=== PATIENT | female | born 1960 | race Caucasian/White ===

== ENCOUNTER 2017-09-23 15:02 | Emergency (ER) | payer MEDICARE ==
[2017-09-23] MEDS: silver sulfADIAZINE 1% CREAM 25GM TUBE. TP (15:50)
== END 2017-09-23 15:56 | disposition home or self-care (01) ==
LOC: ER 15:02
DX: T23.221A Burn of second degree of single right finger (nail) except thumb, initial encounter (principal); I11.0 Hypertensive heart disease with heart failure; I50.9 Heart failure, unspecified; E11.40 Type 2 diabetes mellitus with diabetic neuropathy, unspecified; E78.00 Pure hypercholesterolemia, unspecified; F12.10 Cannabis abuse, uncomplicated; Z88.8 Allergy status to other drugs, medicaments and biological substances; X17.XXXA Contact with hot engines, machinery and tools, initial encounter; Y93.89 Activity, other specified; Y99.8 Other external cause status; Y92.89 Other specified places as the place of occurrence of the external cause
CPT/HCPCS: 16020; 99284-25

== ENCOUNTER 2017-10-10 18:28 | Emergency (ER) | payer MEDICARE ==
[2017-10-10 20:32] LABS: BILIRUBIN,URINE NEGATIVE (NEG); CLARITY,URINE CLEAR; COLOR,URINE YELLOW; GLUCOSE,URINE >=1000 mg/dL (NEG); NITRITE,URINE NEGATIVE (NEG); PH,URINE 5.5; PROTEIN,URINE 30 mg/dL (NEG-TRACE); UROBILINOGEN,URINE 0.2 mg/dL (0.2 mg/dL)
[2017-10-10 20:41] LABS: AMPHETAMINE/METHAMPHETAMINE NEG (NEG); BARBITURATES NEG (NEG); BENZODIAZEPINES NEG (NEG); CANNABINOIDS POS (NEG); COCAINE NEG (NEG); ETHANOL, URINE NEG (NEG); METHADONE NEG (NEG); OPIATES NEG (NEG); PHENCYCLIDINE NEG (NEG)
[2017-10-10 20:44] LABS: ADD MAN DIFF? NO
[2017-10-10] MEDS: IV NORMAL SALINE 1000ML BAG 1,000 ML IV (20:45)
[2017-10-10 20:47] LABS: BASO # 0.1 x10^3/uL (0.0-0.2); BASO % 1 % (0-3); EOS # 0.3 x10^3/uL (0.0-0.7); EOS % 4 % (0-3); HEMATOCRIT 40.8 % (36.0-47.0); HEMOGLOBIN 13.8 g/dL (12.0-15.5); LYMPH % 42 % (24-48); MEAN CORPUSCULAR HEMOGLOBIN 30 pg (25-35); MEAN CORPUSCULAR HGB CONC 34 g/dL (31-37); MEAN CORPUSCULAR VOLUME 89 fL (79-100); MONO # 0.9 x10^3/uL (0.0-1.1); MONO % 9 % (0-9); NEUT # 4.2 x10^3uL (1.8-7.7); NEUT % 44 % (31-73); PLATELET COUNT 266 x10^3/uL (140-400); RED BLOOD COUNT 4.58 x10^6/uL (3.50-5.40); RED CELL DISTRIBUTION WIDTH 14.2 % (11.5-14.5); WHITE BLOOD COUNT 9.5 x10^3/uL (4.0-11.0)
[2017-10-10 20:58] LABS: ANION GAP 12 (6-14); BLOOD UREA NITROGEN 16 mg/dL (7-20); CALCIUM 9.7 mg/dL (8.5-10.1); CARBON DIOXIDE 25 mmol/L (21-32); CHLORIDE 97 mmol/L (98-107); CREATININE 0.9 mg/dL (0.6-1.0); GFR 64.5; GLUCOSE 283 mg/dL (70-99); POTASSIUM 4.1 mmol/L (3.5-5.1); SODIUM 134 mmol/L (136-145)
[2017-10-10 21:03] LABS: TROPONINI < 0.017 ng/mL (0.000-0.055)
[2017-10-10 21:07] LABS: RBC,URINE 0 /HPF (0-2)
[2017-10-10 21:08] LABS: BACTERIA,URINE FEW /HPF (0-FEW); SQUAMOUS EPITHELIAL CELL,UR FEW /LPF; YEAST,URINE PRESENT /HPF
[2017-10-10 21:10] LABS: THYROID STIM HORMONE (TSH) 5.416 uIU/mL (0.358-3.74)
== END 2017-10-10 23:09 | disposition home or self-care (01) ==
LOC: ER 18:28
DX: S40.012A Contusion of left shoulder, initial encounter (principal); I95.1 Orthostatic hypotension; F41.0 Panic disorder [episodic paroxysmal anxiety]; I11.0 Hypertensive heart disease with heart failure; I50.9 Heart failure, unspecified; J44.9 Chronic obstructive pulmonary disease, unspecified; E11.9 Type 2 diabetes mellitus without complications; E78.00 Pure hypercholesterolemia, unspecified; E11.40 Type 2 diabetes mellitus with diabetic neuropathy, unspecified; F12.10 Cannabis abuse, uncomplicated; Z86.19 Personal history of other infectious and parasitic diseases; Z88.8 Allergy status to other drugs, medicaments and biological substances; X58.XXXA Exposure to other specified factors, initial encounter; Y93.89 Activity, other specified; Y92.89 Other specified places as the place of occurrence of the external cause; Y99.8 Other external cause status
CPT/HCPCS: 36415; 71045; 73030; 80048; 80307; 81001; 84443; 84484; 85025; 93005; 96360; 96361; 99285-25; J7030

== ENCOUNTER 2017-11-03 12:19 | Inpatient (IN) | payer OTHER, MEDICARE ==
[2017-11-03] MEDS: 0.9 % SODIUM CHLORIDE 10 ML DISP.SYRIN. IV (12:30)
[2017-11-03] MEDS: ALBUTEROL SULFATE 2.5 MG/3 ML NEBU. CONT NEB (12:40)
[2017-11-03] MEDS: IPRATRPIUM/ALBUTEROL 0.5/2.5MG 3 ML NEBU. NEB ×2 (12:43→19:44)
[2017-11-03 12:53] LABS: BASE EXCESS ABG -3 mmol/L (-3-3); HCO3 ABG 20 mmol/L (21-28); PCO2 ABG 30 mmHg (35-46); PH ABG 7.45 (7.35-7.45); PO2 ABG 70 mmHg (75-108); SAT O2 ABG 94 % (92-99)
[2017-11-03 12:57] LABS: ADD MAN DIFF? NO
[2017-11-03 13:01] LABS: BASO # 0.1 x10^3/uL (0.0-0.2); BASO % 1 % (0-3); EOS # 0.2 x10^3/uL (0.0-0.7); EOS % 2 % (0-3); HEMATOCRIT 35.5 % (36.0-47.0); HEMOGLOBIN 12.1 g/dL (12.0-15.5); LYMPH # 2.7 x10^3/uL (1.0-4.8); LYMPH % 29 % (24-48); MEAN CORPUSCULAR HEMOGLOBIN 31 pg (25-35); MEAN CORPUSCULAR HGB CONC 34 g/dL (31-37); MEAN CORPUSCULAR VOLUME 90 fL (79-100); MONO # 0.6 x10^3/uL (0.0-1.1); MONO % 7 % (0-9); NEUT # 5.7 x10^3uL (1.8-7.7); NEUT % 61 % (31-73); PLATELET COUNT 251 x10^3/uL (140-400); RED BLOOD COUNT 3.95 x10^6/uL (3.50-5.40); RED CELL DISTRIBUTION WIDTH 15.5 % (11.5-14.5); WHITE BLOOD COUNT 9.2 x10^3/uL (4.0-11.0)
[2017-11-03] MEDS: methylPREDNISolone SOD SUCC PF 125 MG/2 ML VIAL. IV (13:05)
[2017-11-03] MEDS: ASPIRIN CHEWABLE 81 MG TABLET. PO (13:06)
[2017-11-03] MEDS: MORPHINE SULFATE 4 MG/ML DISP.SYRIN. IV/SQ ×2 (13:06→21:14)
[2017-11-03] MEDS: IV NORMAL SALINE 1000ML BAG 1,000 ML IV (13:12)
[2017-11-03 13:25] LABS: ANION GAP 14 (6-14); BLOOD UREA NITROGEN 15 mg/dL (7-20); CALCIUM 9.6 mg/dL (8.5-10.1); CARBON DIOXIDE 23 mmol/L (21-32); CHLORIDE 99 mmol/L (98-107); CREATININE 0.9 mg/dL (0.6-1.0); GFR 64.5; GLUCOSE 291 mg/dL (70-99); POTASSIUM 4.1 mmol/L (3.5-5.1); SODIUM 136 mmol/L (136-145)
[2017-11-03 13:31] LABS: ALBUMIN 3.7 g/dL (3.4-5.0); ALK PHOS 90 U/L (46-116); ALT (SGPT) 50 U/L (14-59); AST (SGOT) 26 U/L (15-37); DIRECT BILIRUBIN 0.2 mg/dL (0.0-0.2); LIPASE 112 U/L (73-393); MAGNESIUM 1.5 mg/dL (1.8-2.4); TOTAL PROTEIN 7.6 g/dL (6.4-8.2)
[2017-11-03 13:38] LABS: NT-PRO BNP 2161 pg/mL (0-124); THYROID STIM HORMONE (TSH) 2.019 uIU/mL (0.358-3.74)
[2017-11-03 13:38] LABS: CKMB MASS 2.9 ng/mL (0.0-3.6); CREATINE KINASE 56 U/L (26-192)
[2017-11-03 13:39] LABS: TROPONINI < 0.017 ng/mL (0.000-0.055)
[2017-11-03 13:44] LABS: INFLUENZA A PATIENT NEGATIVE (NEGATIVE); INFLUENZA B PATIENT NEGATIVE (NEGATIVE); OBC FLU VALID
[2017-11-03 14:07] LABS: LACTIC ACID 1.7 mmol/L (0.4-2.0)
[2017-11-03] MEDS ORDERED: NITROGLYCERIN SUBLINGUAL 0.4 MG BOTTLE OF 25. SL (14:15)
[2017-11-03] MEDS ORDERED: ONDANSETRON PF 4 MG/2 ML VIAL. IV (14:15)
[2017-11-03] MEDS ORDERED: ACETAMINOPHEN 325 MG TABLET. PO (14:15)
[2017-11-03] MEDS: FUROSEMIDE 40 MG/4 ML VIAL. IVP (15:15)
[2017-11-03] MEDS: CIPROFLOXACIN 400MG PREMIX 200 ML IV ×2 (15:30→21:58)
[2017-11-03] MEDS ORDERED: IPRATRPIUM/ALBUTEROL 0.5/2.5MG 3 ML NEBU. NEB (16:00)
[2017-11-03 16:52] LABS: POC GLUCOSE 304 mg/dL (70-99)
[2017-11-03] MEDS: glyBURIDE 5 MG TABLET PO (17:36)
[2017-11-03] MEDS: GABAPENTIN 300 MG CAPSULE. PO (17:58)
[2017-11-03] MEDS: carBAMazepine 200 MG TABLET PO (17:59)
[2017-11-03] MEDS: METOPROLOL TART IMMED RELEASE 50 MG TABLET. PO (18:00)
[2017-11-03] MEDS: NORTRIPTYLINE 25 MG CAPSULE PO (18:12)
[2017-11-03 19:33] LABS: POC GLUCOSE 462 mg/dL (70-99)
[2017-11-03 20:22] LABS: POC GLUCOSE 423 mg/dL (70-99)
[2017-11-03 20:49] LABS: TROPONINI < 0.017 ng/mL (0.000-0.055)
[2017-11-03] MEDS ORDERED: GABAPENTIN 300 MG CAPSULE. PO (21:00)
[2017-11-03] MEDS ORDERED: NORTRIPTYLINE 25 MG CAPSULE PO (21:00)
[2017-11-03] MEDS ORDERED: carBAMazepine 200 MG TABLET PO (21:00)
[2017-11-03] MEDS ORDERED: METOPROLOL TART IMMED RELEASE 50 MG TABLET. PO (21:00)
[2017-11-03] MEDS: INSULIN ASPART 300 UNITS/3 ML INSULN.PEN SQ (21:10)
[2017-11-03] MEDS: ALPRAZolam 0.5 MG TABLET PO (21:13)
[2017-11-04 02:44] LABS: TROPONINI < 0.017 ng/mL (0.000-0.055)
[2017-11-04] MEDS ORDERED: DEXTROSE 50% 25 GM / 50ML DISP.SYRIN. IV (07:45)
[2017-11-04 07:56] LABS: POC GLUCOSE 303 mg/dL (70-99)
[2017-11-04] MEDS: IPRATRPIUM/ALBUTEROL 0.5/2.5MG 3 ML NEBU. NEB ×4 (08:19→20:31)
[2017-11-04] MEDS: GABAPENTIN 300 MG CAPSULE. PO ×2 (08:25→17:45)
[2017-11-04] MEDS: MULTIVITAMIN with MINERAL TABLET. PO (08:26)
[2017-11-04] MEDS: carBAMazepine 200 MG TABLET PO ×2 (08:26→17:46)
[2017-11-04] MEDS: METOPROLOL TART IMMED RELEASE 50 MG TABLET. PO ×2 (08:27→17:47)
[2017-11-04] MEDS: glyBURIDE 5 MG TABLET PO ×2 (08:27→17:45)
[2017-11-04] MEDS: CIPROFLOXACIN 400MG PREMIX 200 ML IV ×2 (08:29→21:41)
[2017-11-04] MEDS: INSULIN ASPART 300 UNITS/3 ML INSULN.PEN SQ ×3 (08:41→17:00)
[2017-11-04] MEDS ORDERED: NON FORMULARY ITEM (Tiotropium Bromide (Spiriva) 1 CAP) IH (09:00)
[2017-11-04 11:47] LABS: POC GLUCOSE 312 mg/dL (70-99)
[2017-11-04] MEDS: fentaNYL PF VIAL 100 MCG/2 ML VIAL IV (13:23)
[2017-11-04] MEDS: ALBUTEROL SULFATE 2.5 MG/3 ML NEBU. NEB (13:48)
[2017-11-04 17:07] LABS: POC GLUCOSE 116 mg/dL (70-99)
[2017-11-04] MEDS: NORTRIPTYLINE 25 MG CAPSULE PO (17:46)
[2017-11-04] MEDS: oxyCODONE/APAP 5/325 1 TAB TABLET PO ×2 (17:47→21:40)
[2017-11-04] MEDS: methylPREDNISolone SOD SUCC PF 125 MG/2 ML VIAL. IV ×2 (17:48→21:41)
[2017-11-04] MEDS: LACTOBACILLUS RHAMNOSUS GG 1 CAPSULE. PO (21:00)
[2017-11-04] MEDS: ALPRAZolam 0.5 MG TABLET PO (21:40)
[2017-11-04 22:34] LABS: POC GLUCOSE 208 mg/dL (70-99)
[2017-11-05 04:32] LABS: BASO % 0 % (0-3); EOS % 0 % (0-3); HEMATOCRIT 33.5 % (36.0-47.0); HEMOGLOBIN 11.3 g/dL (12.0-15.5); LYMPH # 0.6 x10^3/uL (1.0-4.8); LYMPH % 7 % (24-48); MEAN CORPUSCULAR HEMOGLOBIN 31 pg (25-35); MEAN CORPUSCULAR HGB CONC 34 g/dL (31-37); MEAN CORPUSCULAR VOLUME 91 fL (79-100); MONO # 0.1 x10^3/uL (0.0-1.1); MONO % 2 % (0-9); NEUT # 7.9 x10^3uL (1.8-7.7); NEUT % 91 % (31-73); PLATELET COUNT 236 x10^3/uL (140-400); RED BLOOD COUNT 3.69 x10^6/uL (3.50-5.40); RED CELL DISTRIBUTION WIDTH 16.2 % (11.5-14.5); WHITE BLOOD COUNT 8.7 x10^3/uL (4.0-11.0)
[2017-11-05 04:33] LABS: ADD MAN DIFF? YES
[2017-11-05 04:55] LABS: ANION GAP 16 (6-14); BLOOD UREA NITROGEN 27 mg/dL (7-20); CALCIUM 9.6 mg/dL (8.5-10.1); CARBON DIOXIDE 22 mmol/L (21-32); CHLORIDE 96 mmol/L (98-107); CREATININE 1.2 mg/dL (0.6-1.0); GFR 46.3; GLUCOSE 397 mg/dL (70-99); POTASSIUM 4.3 mmol/L (3.5-5.1); SODIUM 134 mmol/L (136-145)
[2017-11-05] MEDS: IPRATRPIUM/ALBUTEROL 0.5/2.5MG 3 ML NEBU. NEB ×5 (07:36→21:20)
[2017-11-05 08:06] LABS: POC GLUCOSE 312 mg/dL (70-99)
[2017-11-05] MEDS: GABAPENTIN 300 MG CAPSULE. PO ×2 (09:09→17:49)
[2017-11-05] MEDS: METOPROLOL TART IMMED RELEASE 50 MG TABLET. PO ×2 (09:10→17:49)
[2017-11-05] MEDS: carBAMazepine 200 MG TABLET PO ×2 (09:10→17:54)
[2017-11-05] MEDS: glyBURIDE 5 MG TABLET PO ×2 (09:10→17:48)
[2017-11-05] MEDS: LACTOBACILLUS RHAMNOSUS GG 1 CAPSULE. PO ×2 (09:10→21:27)
[2017-11-05] MEDS: MULTIVITAMIN with MINERAL TABLET. PO (09:10)
[2017-11-05] MEDS: ALPRAZolam 0.5 MG TABLET PO ×2 (09:11→21:27)
[2017-11-05] MEDS: methylPREDNISolone SOD SUCC PF 125 MG/2 ML VIAL. IV ×4 (09:11→21:27)
[2017-11-05] MEDS: INSULIN ASPART 300 UNITS/3 ML INSULN.PEN SQ ×5 (09:30→21:36)
[2017-11-05 09:34] LABS: % BANDS 1 % (0-9); % LYMPHS 8 % (24-48); % MONOS 3 % (0-10); % SEGS 88 % (35-66); PLT ESTIMATE ADEQUATE (ADEQUATE); POLYCHROMASIA PRESENT
[2017-11-05] MEDS: CIPROFLOXACIN 400MG PREMIX 200 ML IV ×2 (10:45→21:27)
[2017-11-05 17:09] LABS: POC GLUCOSE 351 mg/dL (70-99)
[2017-11-05 17:42] LABS: POC GLUCOSE 412 mg/dL (70-99)
[2017-11-05] MEDS: NORTRIPTYLINE 25 MG CAPSULE PO (17:48)
[2017-11-05] MEDS ORDERED: DEXTROSE 50% 25 GM / 50ML DISP.SYRIN. IV (18:15)
[2017-11-05] MEDS: FUROSEMIDE 40 MG/4 ML VIAL. IVP (19:21)
[2017-11-05 21:11] LABS: POC GLUCOSE 375 mg/dL (70-99)
[2017-11-06 04:36] LABS: ADD MAN DIFF? NO
[2017-11-06 04:43] LABS: BASO % 0 % (0-3); EOS % 0 % (0-3); HEMATOCRIT 34.7 % (36.0-47.0); LYMPH # 1.3 x10^3/uL (1.0-4.8); LYMPH % 14 % (24-48); MEAN CORPUSCULAR HEMOGLOBIN 31 pg (25-35); MEAN CORPUSCULAR HGB CONC 35 g/dL (31-37); MEAN CORPUSCULAR VOLUME 90 fL (79-100); MONO # 0.7 x10^3/uL (0.0-1.1); MONO % 7 % (0-9); NEUT # 7.4 x10^3uL (1.8-7.7); NEUT % 79 % (31-73); PLATELET COUNT 263 x10^3/uL (140-400); RED BLOOD COUNT 3.86 x10^6/uL (3.50-5.40); RED CELL DISTRIBUTION WIDTH 15.9 % (11.5-14.5); WHITE BLOOD COUNT 9.4 x10^3/uL (4.0-11.0)
[2017-11-06 05:03] LABS: ANION GAP 13 (6-14); BLOOD UREA NITROGEN 28 mg/dL (7-20); CALCIUM 9.5 mg/dL (8.5-10.1); CARBON DIOXIDE 25 mmol/L (21-32); CHLORIDE 97 mmol/L (98-107); CREATININE 1.1 mg/dL (0.6-1.0); GFR 51.2; GLUCOSE 326 mg/dL (70-99); SODIUM 135 mmol/L (136-145)
[2017-11-06] MEDS ORDERED: INSULIN ASPART 300 UNITS/3 ML INSULN.PEN SQ (07:30)
[2017-11-06] MEDS: glyBURIDE 5 MG TABLET PO ×2 (08:00→17:13)
[2017-11-06] MEDS: IPRATRPIUM/ALBUTEROL 0.5/2.5MG 3 ML NEBU. NEB ×4 (08:03→19:59)
[2017-11-06] MEDS: IV 1/2 NORMAL SALINE 1,000 ML IV (08:24)
[2017-11-06] MEDS: methylPREDNISolone SOD SUCC PF 125 MG/2 ML VIAL. IV ×4 (08:25→21:31)
[2017-11-06] MEDS: MULTIVITAMIN with MINERAL TABLET. PO (08:25)
[2017-11-06] MEDS: CIPROFLOXACIN 400MG PREMIX 200 ML IV ×2 (08:25→21:30)
[2017-11-06] MEDS: GABAPENTIN 300 MG CAPSULE. PO ×2 (08:26→17:11)
[2017-11-06] MEDS: carBAMazepine 200 MG TABLET PO ×2 (08:26→17:12)
[2017-11-06] MEDS: LACTOBACILLUS RHAMNOSUS GG 1 CAPSULE. PO ×2 (08:26→21:31)
[2017-11-06] MEDS: METOPROLOL TART IMMED RELEASE 50 MG TABLET. PO ×2 (08:26→17:11)
[2017-11-06 08:34] LABS: POC GLUCOSE 229 mg/dL (70-99)
[2017-11-06] MEDS: INSULIN ASPART 300 UNITS/3 ML INSULN.PEN SQ ×3 (08:41→17:30)
[2017-11-06 11:25] LABS: POC GLUCOSE 335 mg/dL (70-99)
[2017-11-06] MEDS ORDERED: LIDOCAINE 2% 20 ML VIAL. (11:48)
[2017-11-06] MEDS ORDERED: IOHEXOL 300 MG/ML 100ML VIAL. ×2 (11:48→12:45)
[2017-11-06] MEDS ORDERED: MIDAZOLAM HCL/PF 2 MG/2 ML VIAL. (11:52)
[2017-11-06] MEDS ORDERED: fentaNYL PF VIAL 100 MCG/2 ML VIAL (11:52)
[2017-11-06] MEDS ORDERED: FUROSEMIDE 40 MG/4 ML VIAL. IVP (12:30)
[2017-11-06] MEDS ORDERED: CONTRAST GIVEN MC (12:45)
[2017-11-06] MEDS: amLODIPine BESYLATE 10 MG TABLET PO (13:00)
[2017-11-06] MEDS: IOHEXOL 300 MG/ML 100ML VIAL. IART (13:12)
[2017-11-06] MEDS: LIDOCAINE 2% 20 ML VIAL. IJ (13:13)
[2017-11-06] MEDS: fentaNYL PF VIAL 100 MCG/2 ML VIAL IV (13:13)
[2017-11-06] MEDS: MIDAZOLAM HCL/PF 2 MG/2 ML VIAL. IV (13:14)
[2017-11-06 13:35] LABS: POC GLUCOSE 296 mg/dL (70-99)
[2017-11-06] MEDS ORDERED: fentaNYL PF VIAL 100 MCG/2 ML VIAL IV (14:30)
[2017-11-06] MEDS ORDERED: NITROGLYCERIN SUBLINGUAL 0.4 MG BOTTLE OF 25. SL (14:30)
[2017-11-06] MEDS ORDERED: HYDROcodone/APAP 5/325MG 1 TAB TABLET PO (14:30)
[2017-11-06] MEDS ORDERED: 0.9 % SODIUM CHLORIDE 10 ML DISP.SYRIN. IV (14:30)
[2017-11-06] MEDS: LABETALOL 20 MG/4 ML DISP.SYRIN. IVP (14:51)
[2017-11-06 16:57] LABS: POC GLUCOSE 279 mg/dL (70-99)
[2017-11-06] MEDS: NORTRIPTYLINE 25 MG CAPSULE PO (17:11)
[2017-11-06] MEDS: LOSARTAN POTASSIUM 50 MG TABLET. PO (17:12)
[2017-11-06] MEDS: ONDANSETRON PF 4 MG/2 ML VIAL. IV (19:40)
[2017-11-06] MEDS: FUROSEMIDE 40 MG/4 ML VIAL. IVP (19:45)
[2017-11-06] MEDS ORDERED: METOPROLOL TART IMMED RELEASE 25 MG TABLET. PO (21:00)
[2017-11-06 21:08] LABS: POC GLUCOSE 389 mg/dL (70-99)
[2017-11-06] MEDS: SIMVASTATIN 10 MG TABLET PO (21:31)
[2017-11-07] MEDS: INSULIN ASPART 300 UNITS/3 ML INSULN.PEN SQ ×4 (00:43→18:06)
[2017-11-07] MEDS: LABETALOL 20 MG/4 ML DISP.SYRIN. IVP (03:41)
[2017-11-07 05:18] LABS: ADD MAN DIFF? NO
[2017-11-07 05:43] LABS: BASO % 0 % (0-3); EOS % 0 % (0-3); HEMATOCRIT 33.1 % (36.0-47.0); HEMOGLOBIN 11.3 g/dL (12.0-15.5); LYMPH # 1.7 x10^3/uL (1.0-4.8); LYMPH % 18 % (24-48); MEAN CORPUSCULAR HEMOGLOBIN 31 pg (25-35); MEAN CORPUSCULAR HGB CONC 34 g/dL (31-37); MEAN CORPUSCULAR VOLUME 90 fL (79-100); MONO # 0.7 x10^3/uL (0.0-1.1); MONO % 8 % (0-9); NEUT # 6.8 x10^3uL (1.8-7.7); NEUT % 74 % (31-73); PLATELET COUNT 229 x10^3/uL (140-400); RED BLOOD COUNT 3.68 x10^6/uL (3.50-5.40); RED CELL DISTRIBUTION WIDTH 15.6 % (11.5-14.5); WHITE BLOOD COUNT 9.2 x10^3/uL (4.0-11.0)
[2017-11-07 06:12] LABS: ANION GAP 8 (6-14); BLOOD UREA NITROGEN 27 mg/dL (7-20); CALCIUM 8.4 mg/dL (8.5-10.1); CARBON DIOXIDE 30 mmol/L (21-32); CHLORIDE 97 mmol/L (98-107); CREATININE 0.9 mg/dL (0.6-1.0); GFR 64.5; GLUCOSE 305 mg/dL (70-99); POTASSIUM 3.5 mmol/L (3.5-5.1); SODIUM 135 mmol/L (136-145)
[2017-11-07] MEDS: carBAMazepine 200 MG TABLET PO ×2 (08:00→17:00)
[2017-11-07 08:15] LABS: POC GLUCOSE 234 mg/dL (70-99)
[2017-11-07] MEDS: IPRATRPIUM/ALBUTEROL 0.5/2.5MG 3 ML NEBU. NEB ×3 (08:22→15:33)
[2017-11-07] MEDS: methylPREDNISolone SOD SUCC PF 125 MG/2 ML VIAL. IV ×3 (09:00→17:00)
[2017-11-07] MEDS: CIPROFLOXACIN 400MG PREMIX 200 ML IV (09:00)
[2017-11-07] MEDS: LACTOBACILLUS RHAMNOSUS GG 1 CAPSULE. PO (09:33)
[2017-11-07] MEDS: glyBURIDE 5 MG TABLET PO ×2 (09:33→18:01)
[2017-11-07] MEDS: METOPROLOL TART IMMED RELEASE 50 MG TABLET. PO ×2 (09:33→18:00)
[2017-11-07] MEDS: LOSARTAN POTASSIUM 50 MG TABLET. PO (09:34)
[2017-11-07] MEDS: amLODIPine BESYLATE 10 MG TABLET PO (09:34)
[2017-11-07] MEDS: MULTIVITAMIN with MINERAL TABLET. PO (09:35)
[2017-11-07] MEDS: GABAPENTIN 300 MG CAPSULE. PO ×2 (09:37→18:00)
[2017-11-07 14:37] LABS: POC GLUCOSE 264 mg/dL (70-99)
[2017-11-07] MEDS: PNEUMOC CONJ VACC 23-VALENT 0.5 ML VIAL. VAX IM (15:07)
[2017-11-07 17:30] LABS: POC GLUCOSE 254 mg/dL (70-99)
[2017-11-07] MEDS: NORTRIPTYLINE 25 MG CAPSULE PO (18:01)
== END 2017-11-07 19:20 | disposition home health service (06) | DRG 286 ==
LOC: 2 SOUTH 11-07 16:20 → ER 12:19 → 6 SOUTH 14:20
PROC: 4A023N8 Measurement of Cardiac Sampling and Pressure, Bilateral, Percutaneous Approach (ICD-10-PCS; principal; 2017-11-06)
PROC: B2111ZZ Fluoroscopy of Multiple Coronary Arteries using Low Osmolar Contrast (ICD-10-PCS; 2017-11-06)
PROC: B2151ZZ Fluoroscopy of Left Heart using Low Osmolar Contrast (ICD-10-PCS; 2017-11-06)
DX: I25.10 Atherosclerotic heart disease of native coronary artery without angina pectoris (principal); J96.21 Acute and chronic respiratory failure with hypoxia; E11.42 Type 2 diabetes mellitus with diabetic polyneuropathy; I11.0 Hypertensive heart disease with heart failure; I27.20 Pulmonary hypertension, unspecified; I50.9 Heart failure, unspecified; J44.9 Chronic obstructive pulmonary disease, unspecified; E78.00 Pure hypercholesterolemia, unspecified; F41.0 Panic disorder [episodic paroxysmal anxiety]; F17.210 Nicotine dependence, cigarettes, uncomplicated; E78.5 Hyperlipidemia, unspecified; K21.9 Gastro-esophageal reflux disease without esophagitis; I34.0 Nonrheumatic mitral (valve) insufficiency; F32.9 Major depressive disorder, single episode, unspecified; M43.00 Spondylolysis, site unspecified; Z87.81 Personal history of (healed) traumatic fracture; Z88.8 Allergy status to other drugs, medicaments and biological substances; Z82.49 Family history of ischemic heart disease and other diseases of the circulatory system
CPT/HCPCS: 36415; 36600; 71045; 80048; 80076; 82553; 82805; 82962; 83605; 83690; 83735; 83880; 84443; 84484; 85007; 85025; 87040; 87804; 87804-59; 90732; 93005; 93306; 93460; 94640; 94760; 96361; 96365; 96375; 97161-GP; 97165-GO; 99152; 99153; 99291-25; C1769; C1771; C1773; C1892; G0269; J0744; J1644; J1815; J1940; J2060; J2250; J2270; J2405; J2930; J3010; J3490; J7030; J7613; J7620; Q9967

== ENCOUNTER 2017-11-13 00:03 | Emergency (ER) | payer OTHER, MEDICARE ==
[2017-11-13 01:01] LABS: ADD MAN DIFF? NO
[2017-11-13 01:04] LABS: BASO # 0.1 x10^3/uL (0.0-0.2); BASO % 1 % (0-3); EOS # 0.3 x10^3/uL (0.0-0.7); EOS % 3 % (0-3); HEMATOCRIT 32.6 % (36.0-47.0); HEMOGLOBIN 10.9 g/dL (12.0-15.5); LYMPH # 2.8 x10^3/uL (1.0-4.8); LYMPH % 22 % (24-48); MEAN CORPUSCULAR HEMOGLOBIN 30 pg (25-35); MEAN CORPUSCULAR HGB CONC 33 g/dL (31-37); MEAN CORPUSCULAR VOLUME 91 fL (79-100); MONO % 8 % (0-9); NEUT # 8.5 x10^3uL (1.8-7.7); NEUT % 67 % (31-73); PLATELET COUNT 289 x10^3/uL (140-400); RED CELL DISTRIBUTION WIDTH 15.6 % (11.5-14.5); WHITE BLOOD COUNT 12.7 x10^3/uL (4.0-11.0)
[2017-11-13] MEDS: BISACODYL 5 MG TABLET.DR. PO (01:06)
[2017-11-13] MEDS: MAGNESIUM CITRATE 296 ML SOLUTION. PO (01:06)
[2017-11-13] MEDS: BISACODYL 10 MG SUPP.RECT. PR (01:06)
[2017-11-13] MEDS: ONDANSETRON PF 4 MG/2 ML VIAL. IV (01:06)
[2017-11-13 01:21] LABS: ANION GAP 11 (6-14); BLOOD UREA NITROGEN 19 mg/dL (7-20); BUN/CREATININE RATIO 19 (6-20); CALCIUM 8.8 mg/dL (8.5-10.1); CARBON DIOXIDE 26 mmol/L (21-32); CHLORIDE 97 mmol/L (98-107); GFR 57.1; GLUCOSE 214 mg/dL (70-99); POTASSIUM 3.8 mmol/L (3.5-5.1); SODIUM 134 mmol/L (136-145)
[2017-11-13 01:27] LABS: ALBUMIN 2.7 g/dL (3.4-5.0); ALBUMIN/GLOBULIN RATIO 0.7 (1.0-1.7); ALK PHOS 118 U/L (46-116); ALT (SGPT) 49 U/L (14-59); AST (SGOT) 30 U/L (15-37); LIPASE 127 U/L (73-393); TOTAL BILIRUBIN 0.3 mg/dL (0.2-1.0); TOTAL PROTEIN 6.8 g/dL (6.4-8.2)
[2017-11-13] MEDS: IPRATRPIUM/ALBUTEROL 0.5/2.5MG 3 ML NEBU. NEB (01:41)
== END 2017-11-13 02:19 | disposition home or self-care (01) ==
LOC: ER 00:03
DX: O26.892 Other specified pregnancy related conditions, second trimester (principal); K59.00 Constipation, unspecified; I11.9 Hypertensive heart disease without heart failure; E11.40 Type 2 diabetes mellitus with diabetic neuropathy, unspecified; J44.9 Chronic obstructive pulmonary disease, unspecified; Z3A.20 20 weeks gestation of pregnancy
CPT/HCPCS: 36415; 74176; 80053; 83690; 85025; 94640; 96374; 99285-25; J2405; J7620

== ENCOUNTER 2018-03-30 09:45 | Emergency (ER) | payer OTHER | END 2018-03-30 10:48 | disposition home or self-care (01) | LOC: ER 10:48 | DX: T81.31XA Disruption of external operation (surgical) wound, not elsewhere classified, initial encounter (principal); J44.9 Chronic obstructive pulmonary disease, unspecified; I10 Essential (primary) hypertension; E11.9 Type 2 diabetes mellitus without complications; E11.40 Type 2 diabetes mellitus with diabetic neuropathy, unspecified; Z88.8 Allergy status to other drugs, medicaments and biological substances | CPT/HCPCS: 12020; 99283 ==

== ENCOUNTER 2018-04-25 18:13 | Emergency (ER) | payer OTHER ==
[2018-04-25] MEDS: IBUPROFEN 600 MG TABLET. PO ×2 (19:16)
== END 2018-04-25 19:31 | disposition home or self-care (01) ==
LOC: ER 18:13
DX: S46.912A Strain of unspecified muscle, fascia and tendon at shoulder and upper arm level, left arm, initial encounter (principal); S50.11XA Contusion of right forearm, initial encounter (principal); S80.212A Abrasion, left knee, initial encounter; S80.211A Abrasion, right knee, initial encounter; E11.40 Type 2 diabetes mellitus with diabetic neuropathy, unspecified; J44.9 Chronic obstructive pulmonary disease, unspecified; I10 Essential (primary) hypertension; I25.10 Atherosclerotic heart disease of native coronary artery without angina pectoris; Z95.1 Presence of aortocoronary bypass graft; Z88.8 Allergy status to other drugs, medicaments and biological substances; W01.0XXA Fall on same level from slipping, tripping and stumbling without subsequent striking against object, initial encounter; Y93.01 Activity, walking, marching and hiking; Y92.481 Parking lot as the place of occurrence of the external cause; Y99.8 Other external cause status
CPT/HCPCS: 99283

== ENCOUNTER 2018-06-20 17:47 | Inpatient (IN) | payer OTHER ==
[~2018-06-20] VITALS: Ht 170.2 cm; Wt 83.5 kg
[~2018-06-20 17:47] MED LIST: ALPR0.5T6 PO; AMLO10TA6 PO; AMOX1TAB61 PO; ANTI DEPRESSION; BISA-42 PO; BISA10SU13 RC; Biotin PO; CARB200T4 PO; CRESTOR20 MG PO; FLUC200T PO; FURO-68 PO; FURO40TA4 PO; GABA-586 PO; GEMF600T PO; GLYB5TAB3 PO; HYDR25TA9 PO; LISI-338 PO; LISI1TAB7 PO; LISI20TA PO; LOSA50TA2 PO; MAGN296S9 PO; METF10007 PO; METO100T7 PO; MULT-208 PO; NORT75CA PO; OMEG300C PO; ORPH100T PO; POTA10TA17 PO; POTA20TA82 PO; PREG25CA PO; SIMV10TA3 PO; SULF1TAB24 PO; TIOT18CA IH; TRAM-48 PO; TRAM50TA PO
[2018-06-20] MEDS ORDERED: IV NORMAL SALINE 500ML BAG 500 ML IV ONE (18:15)
[2018-06-20] MEDS ORDERED: ACETAMINOPHEN 325 MG TABLET. PO ONE (18:15)
[2018-06-20] MEDS ORDERED: IV NORMAL SALINE 1000ML BAG 1,000 ML IV ONE ×3 (18:15→23:30)
[2018-06-20 18:31] LABS: BASO % 0 % (0-3); EOS # 0.1 x10^3/uL (0.0-0.7); EOS % 1 % (0-3); HEMOGLOBIN 13.6 g/dL (12.0-15.5); LYMPH # 1.4 x10^3/uL (1.0-4.8); LYMPH % 12 % (24-48); MEAN CORPUSCULAR HEMOGLOBIN 27 pg (25-35); MEAN CORPUSCULAR HGB CONC 33 g/dL (31-37); MEAN CORPUSCULAR VOLUME 82 fL (79-100); MONO # 0.8 x10^3/uL (0.0-1.1); MONO % 7 % (0-9); NEUT # 8.8 x10^3uL (1.8-7.7); NEUT % 79 % (31-73); PLATELET COUNT 222 x10^3/uL (140-400); RED CELL DISTRIBUTION WIDTH 17.5 % (11.5-14.5); WHITE BLOOD COUNT 11.1 x10^3/uL (4.0-11.0)
[2018-06-20 18:40] LABS: PROTHROMBIN TIME PATIENT 14.3 SEC (11.7-14.0)
--- NOTE | 2018-06-20 18:41 | PHYS DOC ---
Past Medical History Past Medical History: Anxiety, CAD, COPD, Depression, Diabetes-Type II, Hypertension, Hepatitis, UTI Additional Past Medical Histor: neuropathy cellulitis, hep c, PANIC ATTACKS Past Surgical History: Coronary Bypass Surgery Alcohol Use: Rarely Drug Use: None Adult General Chief Complaint Chief Complaint: WEAKNESS/GENERALIZED HPI HPI Patient is a 57 year old female who presents from home via EMS with the chief complaint of fall. Patient is confused, poor historian, and does not answer questions consistently when asked repeatedly. Patient notes she fell last night and is unsure why she fell but notes that she was on the ground for approximately 4 hours before her son who lives with her was able to help her up. On arrival patient was discovered to have a temperature of 102.7F and was tachycardic at 103 at rest. SIRS positive at this point and sepsis workup was started. While interviewing the patient it was noted that she has a productive cough. Patient is unable to verbalize, how long she has been coughing for. Patient also endorses dysuria and increased urinary frequency/urgency. It is also seen that the patient has a generalized blanching maculopapular nonpainful erythematous rash on her extremities, torso, neck, and buttock. Review of Systems Review of Systems Review systems is limited due to patient's altered mental status Constitutional: Notes fevers and chills [] Eyes: Denies change in visual acuity, redness, or eye pain [] HENT: Denies nasal congestion or sore throat [] Respiratory: notes cough and shortness of breath [] Cardiovascular: Denies chest pain or palpitations [] GI: Notes abdominal pain. Denies nausea, vomiting, bloody stools or diarrhea [] : Notes dysuria and increased urgency/frequency [] Musculoskeletal: Denies back pain or joint pain [] Integument: Notes rash and multiple abrasions [] Neurologic: Denies headache, focal weakness or sensory changes [] Complete systems were reviewed and found to be within normal limits, except as documented in this note. Family History Family History Limited due to patient's altered mental status Current Medications Current Medications Current Medications Medications (Trade) Dose Ordered Sig/Fariha Start Time Stop Time Status Last Admin Dose Admin Acetaminophen (Tylenol) 650 mg 1X ONCE 06/20/18 18:15 06/20/18 18:20 DC 06/20/18 18:47 650 MG Lorazepam (Ativan) 0.5 mg 1X ONCE 06/20/18 18:45 06/20/18 18:46 DC 06/20/18 18:47 0.5 MG Piperacillin Sod/ Tazobactam Sod 4.5 gm/Sodium Chloride 100 ml @ 200 mls/hr 1X ONCE 06/20/18 19:15 06/20/18 19:44 DC 06/20/18 20:15 200 MLS/HR Sodium Chloride 500 ml @ 500 mls/hr 1X ONCE 06/20/18 18:15 06/20/18 19:14 DC 06/20/18 18:49 500 MLS/HR Allergies Allergies Allergies Coded Allergies Type Severity Reaction Last Updated Verified pregabalin Adverse Reaction Intermediate Hives 02/18/15 Yes Physical Exam Physical Exam Constitutional: Well developed, appears toxic [] HENT: Normocephalic, atraumatic, oropharynx moist, no oral exudates, nose normal. [] Eyes: PERRL, EOMI, conjunctiva normal, no discharge. [] Neck: Normal range of motion, no tenderness, supple, no meningismus. [] Cardiovascular:Heart rate regular rhythm, no murmur [] Lungs & Thorax: Crackles heard in the right base. Bilateral breath sounds decreased possibly due to patients poor effort due to AMS. Healed surgical scar over sternum.[] Abdomen: Soft, nondistended, tenderness to palpation in the epigastric and suprapubic regions. [] Skin: Hot to touch, dry. Generalized maculopapular rash most predominant on extremities, abdomen, back, neck, and buttock. Rash is nonpainful, blanchable, non-petechial. Multiple 1 cm abrasions noted on bilateral knees right lateral malleolus. Healing 3 cm laceration noted on left medial calf. [] Back: No tenderness, no CVA tenderness. [] Extremities: No tenderness, ROM intact, no edema. [] Neurologic: Alert and oriented X2- person, place, not time. Normal motor function, normal sensory function, no focal deficits noted. Akasthesia is noted in bilateral lower extremities [] Psychologic: Confused. Affect normal, mood normal. [] Current Patient Data Vital Signs Vital Signs Date Time Temp Pulse Resp B/P (MAP) Pulse Ox O2 Delivery O2 Flow Rate FiO2 06/20/18 20:30 104 18 96 06/20/18 17:47 102.7 140/101 (114) Room Air 102.7 Lab Values Laboratory Tests Test 06/20/18 18:04 06/20/18 20:37 White Blood Count 11.1 x10^3/uL (4.0-11.0) H Red Blood Count 5.00 x10^6/uL (3.50-5.40) Hemoglobin 13.6 g/dL (12.0-15.5) Hematocrit 41.0 % (36.0-47.0) Mean Corpuscular Volume 82 fL (79-100) Mean Corpuscular Hemoglobin 27 pg (25-35) Mean Corpuscular Hemoglobin Concent 33 g/dL (31-37) Red Cell Distribution Width 17.5 % (11.5-14.5) H Platelet Count 222 x10^3/uL (140-400) Neutrophils (%) (Auto) 79 % (31-73) H Lymphocytes (%) (Auto) 12 % (24-48) L Monocytes (%) (Auto) 7 % (0-9) Eosinophils (%) (Auto) 1 % (0-3) Basophils (%) (Auto) 0 % (0-3) Neutrophils # (Auto) 8.8 x10^3uL (1.8-7.7) H Lymphocytes # (Auto) 1.4 x10^3/uL (1.0-4.8) Monocytes # (Auto) 0.8 x10^3/uL (0.0-1.1) Eosinophils # (Auto) 0.1 x10^3/uL (0.0-0.7) Basophils # (Auto) 0.0 x10^3/uL (0.0-0.2) Prothrombin Time 14.3 SEC (11.7-14.0) H Prothrombin Time INR 1.2 (0.8-1.1) H PTT 31 SEC (24-38) Sodium Level 136 mmol/L (136-145) Potassium Level 4.5 mmol/L (3.5-5.1) Chloride Level 96 mmol/L (98-107) L Carbon Dioxide Level 28 mmol/L (21-32) Anion Gap 12 (6-14) Blood Urea Nitrogen 15 mg/dL (7-20) Creatinine 1.4 mg/dL (0.6-1.0) H Estimated GFR (Cockcroft-Gault) 38.8 BUN/Creatinine Ratio 11 (6-20) Glucose Level 207 mg/dL (70-99) H Lactic Acid Level 3.9 mmol/L (0.4-2.0) H Calcium Level 9.4 mg/dL (8.5-10.1) Total Bilirubin 0.7 mg/dL (0.2-1.0) Aspartate Amino Transferase (AST) 27 U/L (15-37) Alanine Aminotransferase (ALT) 31 U/L (14-59) Alkaline Phosphatase 99 U/L (46-116) Creatine Kinase 580 U/L (26-192) H Troponin I Quantitative < 0.017 ng/mL (0.000-0.055) Total Protein 7.3 g/dL (6.4-8.2) Albumin 3.6 g/dL (3.4-5.0) Albumin/Globulin Ratio 1.0 (1.0-1.7) Lipase 116 U/L (73-393) Urine Collection Type Unknown Urine Color Yellow Urine Clarity Clear Urine pH 6.5 Urine Specific [place] 1.025 Urine Protein 30 mg/dL (NEG-TRACE) Urine Glucose (UA) >=1000 mg/dL (NEG) Urine Ketones (Stick) Trace mg/dL (NEG) Urine Blood Small (NEG) Urine Nitrite Positive (NEG) Urine Bilirubin Negative (NEG) Urine Urobilinogen Dipstick 0.2 mg/dL (0.2 mg/dL) Urine Leukocyte Esterase Moderate (NEG) Urine RBC 1-2 /HPF (0-2) Urine WBC 11-20 /HPF (0-4) Urine Squamous Epithelial Cells Occ /LPF Urine Bacteria Many /HPF (0-FEW) Laboratory Tests 06/20/18 18:04 Laboratory Tests 06/20/18 18:04 EKG EKG Sinus tachycardia. Significant wandering baseline noted in leads 1 through aVF. Left Percy deviation. No evidence of any ST elevation in precordial leads. Heart rate 103, QRS 88, QTC 426 [] Interpretation Time: 1803 Radiology/Procedures Radiology/Procedures []PROCEDURE: CT CHEST ABDOMEN PELVIS WO EXAM: CT Chest, Abdomen and Pelvis without IV contrast CLINICAL HISTORY: CONFUSION, FEVER, ABD PAIN COMPARISON: 11/13/2017, CT 04/13/2013 TECHNIQUE: Helical CT of the chest, abdomen and pelvis was performed without intravenous contrast. Axial, coronal and sagittal reformatted images were generated. ---PQRS compliance statement - One or more of the following individualized dose reduction techniques were utilized for this study: 1. Automated exposure control 2. Adjustment of the mA and/or kV according to patient size 3. Use of iterative reconstruction technique--- FINDINGS: Lack of intravenous contrast limits evaluation of solid organs, vasculature, and lymph nodes. Chest: Heart is borderline enlarged. Coronary artery calcifications are seen. No pericardial effusion. No mediastinal or hilar lymphadenopathy by size criteria. No axillary lymphadenopathy. No pleural effusion or pneumothorax. Platelike opacities in the right lower lobe likely subsegmental atelectasis. 4 mm left lower lobe lung nodule (series 2 image 30) is stable to 04/13/2013. Abdomen and Pelvis: Liver is enlarged measuring 23.5 cm in length. No focal liver lesion. Gallbladder is unremarkable. No biliary ductal dilatation. Pancreas is unremarkable. Adrenal glands are normal. Spleen is enlarged measuring 14 cm in AP dimension. No definite renal lesion. No renal calculi. No hydronephrosis. Atherosclerotic calcifications of aorta and iliacs are seen. Moderate colonic stool content. No small or large bowel dilatation. Appendix is normal. No abdominal or pelvic lymphadenopathy. No abdominal pelvic ascites. Bones: Degenerative changes of the hip joints are seen. There is height loss of the T11 vertebral body with associated transverse sclerosis, progressed since 11/13/2017 but age-indeterminate compression fracture. IMPRESSION: 1. Hepatosplenomegaly. 2. T11 vertebral body height loss, progressed since prior 11/13/2017, however age indeterminate. 3. Moderate colonic stool content. 4. No abdominal or pelvic lymphadenopathy or free or loculated fluid collection. Electronically signed by: Breezy Acosta MD (06/20/2018 8:00 PM) [facility] PROCEDURE: CT HEAD AND CERVICAL SPINE WO EXAM: CT Head without IV contrast CLINICAL HISTORY: pt fell; head/neck pain COMPARISON: 02/18/2015. TECHNIQUE: Routine CT of the head without contrast. Soft tissues and bone windows were reviewed. PQRS compliance statement - One or more of the following individualized dose reduction techniques were utilized for this study: 1. Automated exposure control 2. Adjustment of the mA and/or kV according to patient size 3. Use of iterative reconstruction technique FINDINGS: There is no evidence of hemorrhage, mass or extra-axial fluid collection. Gibbs-white differentiation is maintained with no evidence of edema. There is no mass effect or shift of the intracranial structures. The ventricles, basilar cisterns and cortical sulci are normal in size and configuration for the patients stated age. The cerebellum and brainstem are unremarkable. The calvarium demonstrates no evidence of fracture or focal lesion. There is normal aeration of the visualized paranasal sinuses and mastoid air cells. The visualized portions of the orbits are normal. Atherosclerotic calcifications of the intracranial internal carotid and vertebral arteries is seen. IMPRESSION: No evidence for acute intracranial process. EXAM: Ct Cervical Spine Without Iv Contrast CLINICAL HISTORY: pt fell; head/neck pain COMPARISON: 02/18/2015. TECHNIQUE: Helical CT of the cervical spine was performed. Axial, coronal and sagittal reformatted images were also performed. PQRS compliance statement - One or more of the following individualized dose reduction techniques were utilized for this study: 1. Automated exposure control 2. Adjustment of the mA and/or kV according to patient size 3. Use of iterative reconstruction technique FINDINGS: There is preservation of height of the vertebral bodies with normal bone density. There is normal alignment of the cervical spine. Straightening of the normal cervical lordosis. The height of the intervertebral discs is maintained. C2-C3: There is no evidence of disc herniation, spinal stenosis or foraminal compromise. C3-C4: There is no evidence of disc herniation, spinal stenosis or foraminal compromise. C4-C5: There is no evidence of disc herniation, spinal stenosis or foraminal compromise. C5-C6: There is no evidence of disc herniation, spinal stenosis or foraminal compromise. C6-C7: There is no evidence of disc herniation, spinal stenosis or foraminal compromise. C7-T1: There is no evidence of disc herniation, spinal stenosis or foraminal compromise. A 2.4 x 1.9 cm right thyroid nodule is seen, stable to 02/18/2015. IMPRESSION: 1. No evidence of acute fracture or subluxation. Electronically signed by: Breezy Acosta MD (06/20/2018 7:47 PM) [facility] Course & Med Decision Making Course & Med Decision Making 57-year-old female presenting from home via EMS. Patient confused in the emergency department and unable to reliably answer questions. Patient notes she had a fall last night when she was on the ground for approximately 4 hours before her son was able to help her up. Patient also notes she has abdominal pain, dysuria, urinary frequency and urgency. Patient noted to have a productive cough, but is unable to verbalize any details about this. On arrival patient found to be tachycardic at 103 at rest and febrile at 102.7F meeting SIRS criteria. A sepsis workup was started at this point. Son arrived and stated that patient has had multiple falls today. Son also states that before yesterday patient was acting normally and is not confused at her baseline. CT head and neck do not show any acute abnormalities. CT chest shows a small area in the right lower lobe consistent with suspected atelectasis. CT abdomen and pelvis shows hepatosplenomegaly. Labs were collected and reviewed and significant for a lactic acid of 3.9, UA with positive nitrites and positive leuk esterase with many bacteria and 11-20 WBCs. CK of 580, creatinine 1.4. On arrival patient given 30 mL/Kg bolus of normal saline totaling 2.5 L. Patient also started on broad-spectrum antibiotic coverage with Zosyn. Antibiotic selection discussed with admitting attending, who is in agreement. Patient given a single dose of Ativan for agitation. Patient diagnosed with severe sepsis based on lactic acidosis and suspected source of the urinary tract. Patient requiring admission for further evaluation and treatment. Discussed with Dr. Kaminski who is in agreement with admission. Discussed findings and plan with patient and family, who acknowledge understanding and agreement.[] Dragon Disclaimer Dragon Disclaimer This electronic medical record was generated, in whole or in part, using a voice recognition dictation system. Departure Departure Impression: Primary Impression: Severe sepsis Additional Impressions: Acute renal insufficiency Rash Disposition: 09 ADMITTED INPATIENT Admitting Physician: Penny Kaminski Condition: STABLE Referrals: NO PCP (PCP) Problem Qualifiers SUSAN CARR DO Jun 20, 2018 18:41
[2018-06-20 18:51] LABS: CALCIUM 9.4 mg/dL (8.5-10.1); CREATININE 1.4 mg/dL (0.6-1.0); GFR 38.8; POTASSIUM 4.5 mmol/L (3.5-5.1)
[2018-06-20 18:55] LABS: CREATINE KINASE 580 U/L (26-192); LIPASE 116 U/L (73-393)
[2018-06-20 18:56] LABS: ALBUMIN 3.6 g/dL (3.4-5.0); TOTAL BILIRUBIN 0.7 mg/dL (0.2-1.0); TOTAL PROTEIN 7.3 g/dL (6.4-8.2)
[2018-06-20] MEDS ORDERED: PIPERACILLIN/TAZOBACTAM 4.5 GM in IV NORMAL SALINE 100ML 100 ML IV ONE (19:15)
--- NOTE | 2018-06-20 19:50 | RAD ---
EXAM: CT Head without IV contrast CLINICAL HISTORY: pt fell; head/neck pain COMPARISON: 02/18/2015. TECHNIQUE: Routine CT of the head without contrast. Soft tissues and bone windows were reviewed. PQRS compliance statement - One or more of the following individualized dose reduction techniques were utilized for this study: 1. Automated exposure control 2. Adjustment of the mA and/or kV according to patient size 3. Use of iterative reconstruction technique FINDINGS: There is no evidence of hemorrhage, mass or extra-axial fluid collection. Gibbs-white differentiation is maintained with no evidence of edema. There is no mass effect or shift of the intracranial structures. The ventricles, basilar cisterns and cortical sulci are normal in size and configuration for the patients stated age. The cerebellum and brainstem are unremarkable. The calvarium demonstrates no evidence of fracture or focal lesion. There is normal aeration of the visualized paranasal sinuses and mastoid air cells. The visualized portions of the orbits are normal. Atherosclerotic calcifications of the intracranial internal carotid and vertebral arteries is seen. IMPRESSION: No evidence for acute intracranial process. EXAM: Ct Cervical Spine Without Iv Contrast CLINICAL HISTORY: pt fell; head/neck pain COMPARISON: 02/18/2015. TECHNIQUE: Helical CT of the cervical spine was performed. Axial, coronal and sagittal reformatted images were also performed. PQRS compliance statement - One or more of the following individualized dose reduction techniques were utilized for this study: 1. Automated exposure control 2. Adjustment of the mA and/or kV according to patient size 3. Use of iterative reconstruction technique FINDINGS: There is preservation of height of the vertebral bodies with normal bone density. There is normal alignment of the cervical spine. Straightening of the normal cervical lordosis. The height of the intervertebral discs is maintained. C2-C3: There is no evidence of disc herniation, spinal stenosis or foraminal compromise. C3-C4: There is no evidence of disc herniation, spinal stenosis or foraminal compromise. C4-C5: There is no evidence of disc herniation, spinal stenosis or foraminal compromise. C5-C6: There is no evidence of disc herniation, spinal stenosis or foraminal compromise. C6-C7: There is no evidence of disc herniation, spinal stenosis or foraminal compromise. C7-T1: There is no evidence of disc herniation, spinal stenosis or foraminal compromise. A 2.4 x 1.9 cm right thyroid nodule is seen, stable to 02/18/2015. IMPRESSION: 1. No evidence of acute fracture or subluxation. Electronically signed by: Breezy Acosta MD (06/20/2018 7:47 PM) [facility]
--- NOTE | 2018-06-20 20:03 | RAD ---
EXAM: CT Chest, Abdomen and Pelvis without IV contrast CLINICAL HISTORY: CONFUSION, FEVER, ABD PAIN COMPARISON: 11/13/2017, CT 04/13/2013 TECHNIQUE: Helical CT of the chest, abdomen and pelvis was performed without intravenous contrast. Axial, coronal and sagittal reformatted images were generated. ---PQRS compliance statement - One or more of the following individualized dose reduction techniques were utilized for this study: 1. Automated exposure control 2. Adjustment of the mA and/or kV according to patient size 3. Use of iterative reconstruction technique--- FINDINGS: Lack of intravenous contrast limits evaluation of solid organs, vasculature, and lymph nodes. Chest: Heart is borderline enlarged. Coronary artery calcifications are seen. No pericardial effusion. No mediastinal or hilar lymphadenopathy by size criteria. No axillary lymphadenopathy. No pleural effusion or pneumothorax. Platelike opacities in the right lower lobe likely subsegmental atelectasis. 4 mm left lower lobe lung nodule (series 2 image 30) is stable to 04/13/2013. Abdomen and Pelvis: Liver is enlarged measuring 23.5 cm in length. No focal liver lesion. Gallbladder is unremarkable. No biliary ductal dilatation. Pancreas is unremarkable. Adrenal glands are normal. Spleen is enlarged measuring 14 cm in AP dimension. No definite renal lesion. No renal calculi. No hydronephrosis. Atherosclerotic calcifications of aorta and iliacs are seen. Moderate colonic stool content. No small or large bowel dilatation. Appendix is normal. No abdominal or pelvic lymphadenopathy. No abdominal pelvic ascites. Bones: Degenerative changes of the hip joints are seen. There is height loss of the T11 vertebral body with associated transverse sclerosis, progressed since 11/13/2017 but age-indeterminate compression fracture. IMPRESSION: 1. Hepatosplenomegaly. 2. T11 vertebral body height loss, progressed since prior 11/13/2017, however age indeterminate. 3. Moderate colonic stool content. 4. No abdominal or pelvic lymphadenopathy or free or loculated fluid collection. Electronically signed by: Breezy Acosta MD (06/20/2018 8:00 PM) [facility]
[2018-06-20 20:48] LABS: BILIRUBIN,URINE NEGATIVE (NEG); CLARITY,URINE CLEAR; COLOR,URINE YELLOW; NITRITE,URINE POSITIVE (NEG); PH,URINE 6.5; PROTEIN,URINE 30 mg/dL (NEG-TRACE); UROBILINOGEN,URINE 0.2 mg/dL (0.2 mg/dL)
[2018-06-20 21:05] LABS: BACTERIA,URINE MANY /HPF (0-FEW); SQUAMOUS EPITHELIAL CELL,UR OCC /LPF
[2018-06-20] MEDS ORDERED: ONDANSETRON PF 4 MG/2 ML VIAL. IV PRN (21:45)
[2018-06-20 23:00] VITALS: BP 156/83
[2018-06-20] MEDS ORDERED: DEXTROSE 50% 25 GM / 50ML DISP.SYRIN. IV PRN (23:15)
[2018-06-20] MEDS ORDERED: BISACODYL 10 MG SUPP.RECT. RC PRN (23:15)
--- NOTE | 2018-06-20 23:15 | PDOC1 ---
History and Physical Date of Admission Date of Admission DATE: 06/20/18 TIME: 23:12 Identification/Chief Complaint Chief Complaint fall Source Source: Chart review, Patient History of Present Illness History of Present Illness Ms. Ware is a 57 year old female admit s/p fall. Patient is confused, poor historian, and does not answer questions consistently when asked repeatedly. Patient notes she fell last night and is unsure why she fell but notes that she was on the ground for approximately 4 hours before her son who lives with her was able to help her up. On arrival patient was covered to have a temperature of 102.7F and was tachycardic at 103 at rest. While interviewing the patient it was noted that she has a productive cough. Patient is unable to verbalize, how long she has been coughing for. Patient also endorses dysuria and increased urinary frequency/urgency. It is also seen that the patient has a generalized blanching maculopapular nonpainful erythematous rash on her extremities, torso, neck, and buttock. Past Medical History Cardiovascular: CAD, CHF, HTN, Hyperlipidemia, Valve insufficiency, Other Pulmonary: COPD CENTRAL NERVOUS SYSTEM: Periperal neuropathy GI: GERD Hepatobiliary: Hep A/B/C Psych: Anxiety, Depression Musculoskeletal: Other Endocrine: Diabetes Past Surgical History Past Surgical History: Family History Family History: Coronary Artery Disease, Other Social History ALCOHOL: occassional Drugs: Marijuana Current Problem List Problem List Problems Medical Problems: (1) Acute renal insufficiency Status: Acute (2) Elevated lactic acid level Status: Acute (3) Fever Status: Acute (4) Rash Status: Acute (5) Severe sepsis Status: Acute (6) Weakness Status: Acute Current Medications Current Medications Current Medications Acetaminophen (Tylenol) 650 mg 1X ONCE PO Last administered on 06/20/18at 18:47 ; Start 06/20/18 at 18:15; Stop 06/20/18 at 18:20; Status DC Sodium Chloride 1,000 ml @ 1,000 mls/hr 1X ONCE IV Last administered on at 18:46; Start 06/20/18 at 18:15; Stop 06/20/18 at 19:14; Status DC Sodium Chloride 1,000 ml @ 1,000 mls/hr 1X ONCE IV Last administered on at 18:48; Start 9/22/18 at 18:15; Stop 06/20/18 at 19:14; Status DC Sodium Chloride 500 ml @ 500 mls/hr 1X ONCE IV Last administered on at 18:49; Start 06/20/18 at 18:15; Stop 06/20/18 at 19:14; Status DC Lorazepam (Ativan) 0.5 mg 1X ONCE IV Last administered on 06/20/18at 18:47; Start 06/20/18 at 18:45; Stop 06/20/18 at 18:46; Status DC Piperacillin Sod/ Tazobactam Sod 4.5 gm/Sodium Chloride 100 ml @ 200 mls/hr 1X ONCE IV Last administered on 06/20/18at 20:15; Start 06/20/18 at 19:15; Stop 06/20/18 at 19:44; Status DC Ondansetron HCl (Zofran) 4 mg PRN Q8HRS PRN IV NAUSEA/VOMITING; Start 06/20/18 at 21:45; Stop 06/21/18 at 21:44 Active Scripts Active Orphenadrine Citrate 100 Mg Tablet.er 1 Tab PO BID PRN Bactrim Ds Tablet (Sulfamethoxazole/Trimethoprim) 1 Each Tablet 1 Tab PO BID 10 Days Biscolax (Bisacodyl) 10 Mg Supp.rect 20 Mg RC Q6HRS PRN Dulcolax (Bisacodyl) 5 Mg Tablet.dr 2 Tab PO Q6HRS Magnesium Citrate 296 Ml Solution 296 Ml PO DAILY 3 Days Cozaar (Losartan Potassium) 50 Mg Tablet 50 Mg PO DAILY Simvastatin 10 Mg Tablet 10 Mg PO QHS Amlodipine Besylate 10 Mg Tablet 10 Mg PO DAILY Reported [Anti-depression] [Biotin] PO DAILY Carbamazepine 200 Mg Tablet 200 Mg PO BID Glyburide 5 Mg Tablet 2 Tab PO BID Nortriptyline Hcl 75 Mg Capsule 150 Mg PO HS Spiriva (Tiotropium [place]) 18 Mcg Cap.w.dev 1 Cap IH DAILY Metformin Hcl 1,000 Mg Tablet 1,000 Mg PO BIDAC Fish Oil ([place]-3 Fatty Acids) 300 Mg Capsule 300 Mg PO Multi-Day Vitamins (Multivitamin) 1 Each Tablet 1 Cap PO DAILY Alprazolam 0.5 Mg Tablet 1 Tab PO BID PRN Gabapentin 300 Mg Capsule 900 Mg PO BID Metoprolol Tartrate 100 Mg Tablet 1 Tab PO BID Allergies Allergies: Coded Allergies: pregabalin (Verified Adverse Reaction, Intermediate, Hives, 02/18/15) SUICIDAL IDEATIONS ROS Review of System lethargic, obtunded, only 1 word answers at a time, often not sensical Physical Exam General: mild distress, Other (lethagic, sporadically follows commands) HEENT: Atraumatic, Mucous membr. moist/pink, Other Lungs: Clear to auscultation, Normal air movement Heart: no gallops, no murmurs Rectal Exam: not examined Extremities: No cyanosis, No edema, Normal pulses Skin: No breakdown, Other Neuro: Normal tone, Other (lethaari ) Psych/Mental Status: Other Vitals Vitals Vital Signs Date Time Temp Pulse Resp B/P (MAP) Pulse Ox O2 Delivery O2 Flow Rate FiO2 06/20/18 21:45 98 18 97 06/20/18 17:47 102.7 140/101 (114) Room Air 102.7 Labs Labs Laboratory Tests Test 06/20/18 18:04 06/20/18 20:37 06/20/18 23:07 White Blood Count 11.1 x10^3/uL (4.0-11.0) Red Blood Count 5.00 x10^6/uL (3.50-5.40) Hemoglobin 13.6 g/dL (12.0-15.5) Hematocrit 41.0 % (36.0-47.0) Mean Corpuscular Volume 82 fL (79-100) Mean Corpuscular Hemoglobin 27 pg (25-35) Mean Corpuscular Hemoglobin Concent 33 g/dL (31-37) Red Cell Distribution Width 17.5 % (11.5-14.5) Platelet Count 222 x10^3/uL (140-400) Neutrophils (%) (Auto) 79 % (31-73) Lymphocytes (%) (Auto) 12 % (24-48) Monocytes (%) (Auto) 7 % (0-9) Eosinophils (%) (Auto) 1 % (0-3) Basophils (%) (Auto) 0 % (0-3) Neutrophils # (Auto) 8.8 x10^3uL (1.8-7.7) Lymphocytes # (Auto) 1.4 x10^3/uL (1.0-4.8) Monocytes # (Auto) 0.8 x10^3/uL (0.0-1.1) Eosinophils # (Auto) 0.1 x10^3/uL (0.0-0.7) Basophils # (Auto) 0.0 x10^3/uL (0.0-0.2) Prothrombin Time 14.3 SEC (11.7-14.0) Prothromb Time International Ratio 1.2 (0.8-1.1) Activated Partial Thromboplast Time 31 SEC (24-38) Sodium Level 136 mmol/L (136-145) Potassium Level 4.5 mmol/L (3.5-5.1) Chloride Level 96 mmol/L (98-107) Carbon Dioxide Level 28 mmol/L (21-32) Anion Gap 12 (6-14) Blood Urea Nitrogen 15 mg/dL (7-20) Creatinine 1.4 mg/dL (0.6-1.0) Estimated GFR (Cockcroft-Gault) 38.8 BUN/Creatinine Ratio 11 (6-20) Glucose Level 207 mg/dL (70-99) Lactic Acid Level 3.9 mmol/L (0.4-2.0) Calcium Level 9.4 mg/dL (8.5-10.1) Total Bilirubin 0.7 mg/dL (0.2-1.0) Aspartate Amino Transf (AST/SGOT) 27 U/L (15-37) Alanine Aminotransferase (ALT/SGPT) 31 U/L (14-59) Alkaline Phosphatase 99 U/L (46-116) Creatine Kinase 580 U/L (26-192) Troponin I Quantitative < 0.017 ng/mL (0.000-0.055) Total Protein 7.3 g/dL (6.4-8.2) Albumin 3.6 g/dL (3.4-5.0) Albumin/Globulin Ratio 1.0 (1.0-1.7) Lipase 116 U/L (73-393) Urine Collection Type Unknown Urine Color Yellow Urine Clarity Clear Urine pH 6.5 Urine Specific Harper 1.025 Urine Protein 30 mg/dL (NEG-TRACE) Urine Glucose (UA) >=1000 mg/dL (NEG) Urine Ketones (Stick) Trace mg/dL (NEG) Urine Blood Small (NEG) Urine Nitrite Positive (NEG) Urine Bilirubin Negative (NEG) Urine Urobilinogen Dipstick 0.2 mg/dL (0.2 mg/dL) Urine Leukocyte Esterase Moderate (NEG) Urine RBC 1-2 /HPF (0-2) Urine WBC 11-20 /HPF (0-4) Urine Squamous Epithelial Cells Occ /LPF Urine Bacteria Many /HPF (0-FEW) Glucose (Fingerstick) 400 mg/dL (70-99) Laboratory Tests Test 06/20/18 18:04 06/20/18 20:37 06/20/18 23:07 White Blood Count 11.1 x10^3/uL (4.0-11.0) Red Blood Count 5.00 x10^6/uL (3.50-5.40) Hemoglobin 13.6 g/dL (12.0-15.5) Hematocrit 41.0 % (36.0-47.0) Mean Corpuscular Volume 82 fL (79-100) Mean Corpuscular Hemoglobin 27 pg (25-35) Mean Corpuscular Hemoglobin Concent 33 g/dL (31-37) Red Cell Distribution Width 17.5 % (11.5-14.5) Platelet Count 222 x10^3/uL (140-400) Neutrophils (%) (Auto) 79 % (31-73) Lymphocytes (%) (Auto) 12 % (24-48) Monocytes (%) (Auto) 7 % (0-9) Eosinophils (%) (Auto) 1 % (0-3) Basophils (%) (Auto) 0 % (0-3) Neutrophils # (Auto) 8.8 x10^3uL (1.8-7.7) Lymphocytes # (Auto) 1.4 x10^3/uL (1.0-4.8) Monocytes # (Auto) 0.8 x10^3/uL (0.0-1.1) Eosinophils # (Auto) 0.1 x10^3/uL (0.0-0.7) Basophils # (Auto) 0.0 x10^3/uL (0.0-0.2) Prothrombin Time 14.3 SEC (11.7-14.0) Prothromb Time International Ratio 1.2 (0.8-1.1) Activated Partial Thromboplast Time 31 SEC (24-38) Sodium Level 136 mmol/L (136-145) Potassium Level 4.5 mmol/L (3.5-5.1) Chloride Level 96 mmol/L (98-107) Carbon Dioxide Level 28 mmol/L (21-32) Anion Gap 12 (6-14) Blood Urea Nitrogen 15 mg/dL (7-20) Creatinine 1.4 mg/dL (0.6-1.0) Estimated GFR (Cockcroft-Gault) 38.8 BUN/Creatinine Ratio 11 (6-20) Glucose Level 207 mg/dL (70-99) Lactic Acid Level 3.9 mmol/L (0.4-2.0) Calcium Level 9.4 mg/dL (8.5-10.1) Total Bilirubin 0.7 mg/dL (0.2-1.0) Aspartate Amino Transf (AST/SGOT) 27 U/L (15-37) Alanine Aminotransferase (ALT/SGPT) 31 U/L (14-59) Alkaline Phosphatase 99 U/L (46-116) Creatine Kinase 580 U/L (26-192) Troponin I Quantitative < 0.017 ng/mL (0.000-0.055) Total Protein 7.3 g/dL (6.4-8.2) Albumin 3.6 g/dL (3.4-5.0) Albumin/Globulin Ratio 1.0 (1.0-1.7) Lipase 116 U/L (73-393) Urine Collection Type Unknown Urine Color Yellow Urine Clarity Clear Urine pH 6.5 Urine Specific Harper 1.025 Urine Protein 30 mg/dL (NEG-TRACE) Urine Glucose (UA) >=1000 mg/dL (NEG) Urine Ketones (Stick) Trace mg/dL (NEG) Urine Blood Small (NEG) Urine Nitrite Positive (NEG) Urine Bilirubin Negative (NEG) Urine Urobilinogen Dipstick 0.2 mg/dL (0.2 mg/dL) Urine Leukocyte Esterase Moderate (NEG) Urine RBC 1-2 /HPF (0-2) Urine WBC 11-20 /HPF (0-4) Urine Squamous Epithelial Cells Occ /LPF Urine Bacteria Many /HPF (0-FEW) Glucose (Fingerstick) 400 mg/dL (70-99) VTE Prophylaxis Ordered VTE Prophylaxis Devices: Yes VTE Pharmacological Prophylaxi: Yes Assessment/Plan Assessment/Plan acute metabolic encephalopathy sepsis, sepsis syndrome, UTI Dm2, poor control on admit seizure d/o , on tegretol fall maybe from seizure, might now be post-ictal fall, concussion, CT head OK LUKE COLON MD Jun 20, 2018 23:15
[2018-06-20] MEDS ORDERED: PIP/TAZO PER PHARMACY MC PRN (23:30)
[2018-06-20] MEDS: ACETAMINOPHEN 325 MG TABLET. PO PRN (23:42)
[2018-06-20] MEDS: IV NORMAL SALINE 1000ML BAG 1,000 ML IV SCH (23:44)
[2018-06-20] MEDS ORDERED: INSULIN LISPRO 300 UNITS/3 ML INSULN.PEN. SQ ONE (23:45)
[2018-06-20] MEDS: INSULIN GLARGINE 300 UNITS/3 ML INSULN.PEN. SQ SCH (23:52)
[2018-06-20] MEDS: BISACODYL 5 MG TABLET.DR. PO SCH (23:56)
[2018-06-21] VITALS (7 sets, daily range): BP systolic 100–135; BP diastolic 47–85
[2018-06-21] MEDS: PIPERACILLIN/TAZOBACTAM 3.375 GM in IV NORMAL SALINE 50ML 50 ML IV SCH ×2 (01:05→06:08)
[2018-06-21] MEDS ORDERED: IV NORMAL SALINE 500ML BAG 500 ML IV ONE (02:45)
[2018-06-21] MEDS ORDERED: INFLUENZA VAX SCREEN BY RX. MC ONE (03:00)
[2018-06-21] MEDS: IV NORMAL SALINE 1000ML BAG 1,000 ML IV SCH ×2 (03:36→17:49)
[2018-06-21 04:39] LABS: BASO % 0 % (0-3); EOS # 0.1 x10^3/uL (0.0-0.7); EOS % 1 % (0-3); HEMATOCRIT 40.2 % (36.0-47.0); HEMOGLOBIN 13.6 g/dL (12.0-15.5); LYMPH % 9 % (24-48); MEAN CORPUSCULAR HEMOGLOBIN 28 pg (25-35); MEAN CORPUSCULAR HGB CONC 34 g/dL (31-37); MEAN CORPUSCULAR VOLUME 83 fL (79-100); MONO # 0.6 x10^3/uL (0.0-1.1); MONO % 6 % (0-9); NEUT # 9.3 x10^3uL (1.8-7.7); NEUT % 84 % (31-73); PLATELET COUNT 176 x10^3/uL (140-400); RED BLOOD COUNT 4.84 x10^6/uL (3.50-5.40); RED CELL DISTRIBUTION WIDTH 17.7 % (11.5-14.5); WHITE BLOOD COUNT 11.1 x10^3/uL (4.0-11.0)
[2018-06-21 05:48] LABS: ALBUMIN 2.6 g/dL (3.4-5.0); ALBUMIN/GLOBULIN RATIO 0.9 (1.0-1.7); CALCIUM 7.8 mg/dL (8.5-10.1); CREATININE 1.1 mg/dL (0.6-1.0); GFR 51.2; POTASSIUM 3.6 mmol/L (3.5-5.1); TOTAL BILIRUBIN 0.6 mg/dL (0.2-1.0); TOTAL PROTEIN 5.6 g/dL (6.4-8.2)
[2018-06-21] MEDS: BISACODYL 5 MG TABLET.DR. PO SCH ×3 (06:08→17:37)
[2018-06-21] MEDS: INSULIN LISPRO 300 UNITS/3 ML INSULN.PEN. SQ SCH ×3 (08:00→17:47)
[2018-06-21] MEDS: IPRATRPIUM/ALBUTEROL 0.5/2.5MG 3 ML NEBU. NEB SCH ×4 (08:31→19:47)
[2018-06-21 08:32] LABS: AMPHETAMINE/METHAMPHETAMINE NEG (NEG); BARBITURATES NEG (NEG); BENZODIAZEPINES NEG (NEG); CANNABINOIDS NEG (NEG); COCAINE NEG (NEG); METHADONE NEG (NEG); OPIATES NEG (NEG); PHENCYCLIDINE NEG (NEG)
[2018-06-21] MEDS ORDERED: SMZ/TMP 800/160MG TABLET. PO SCH (09:00)
[2018-06-21] MEDS ORDERED: NON FORMULARY ITEM (Tiotropium Bromide (Spiriva) 1 CAP) IH SCH (09:00)
[2018-06-21] MEDS ORDERED: amLODIPine BESYLATE 10 MG TABLET PO SCH (09:00)
[2018-06-21] MEDS: glyBURIDE 5 MG TABLET PO SCH ×2 (09:48→17:37)
[2018-06-21] MEDS: ACETAMINOPHEN 325 MG TABLET. PO PRN ×2 (09:48→21:28)
[2018-06-21] MEDS: MAGNESIUM CITRATE 296 ML SOLUTION. PO SCH (09:48)
[2018-06-21] MEDS: GABAPENTIN 300 MG CAPSULE. PO SCH ×2 (09:49→21:16)
[2018-06-21] MEDS: MULTIVITAMIN with MINERAL TABLET. PO SCH (09:50)
[2018-06-21] MEDS: METOPROLOL TART IMMED RELEASE 50 MG TABLET. PO SCH ×2 (09:50→21:16)
[2018-06-21] MEDS: LOSARTAN POTASSIUM 50 MG TABLET. PO SCH (09:51)
[2018-06-21] MEDS: carBAMazepine 200 MG TABLET PO SCH ×2 (09:51→21:16)
--- NOTE | 2018-06-21 10:27 | PDOC ---
Provider Note Provider Note Pt seen ID consult to follow D/W RN and pharmacy GIFTY BURGOS MD Jun 21, 2018 10:27
--- NOTE | 2018-06-21 10:44 | CONS ---
DATE OF CONSULTATION: ATTENDING PHYSICIAN: Dr. Kaminski. REASON FOR CONSULTATION: Nocturnal hypoxia. HISTORY OF PRESENT ILLNESS: The patient is a 57-year-old female who has been a smoker for 40 years quit in September of this year. She was brought into the hospital after she had a fall, she was confused and she did not answer any questions on admission. Last night, she was noted to have low oxygen saturation of 87% on room air. She was placed on couple of liters of oxygen and saturations went above 90%. She currently feels better. She is awake and following commands. She does have a cough with some gold colored sputum production per her history. No chest pain, no nausea or vomiting and no diarrhea. No focal weakness. No lower extremity edema. No skin rash. I have reviewed the patient's CT chest and it shows plate-like atelectasis of the right lower lobe. There is a tiny 4 mm nodule in the left lower lobe. I have been asked to see her for further evaluation. PAST MEDICAL HISTORY: Significant for history of CAD, CHF, hypertension, hyperlipidemia, valvular insufficiency, COPD, peripheral neuropathy, hepatitis, anxiety, depression and diabetes. PAST SURGICAL HISTORY: . ALLERGIES: PREGABALIN. CURRENT MEDICATIONS: Reviewed as listed in the MRAD including antibiotics and DuoNebs. REVIEW OF SYSTEMS: Twelve-point system obtained. Pertinent positives discussed in my history of present illness, otherwise noncontributory. All systems that were negative were reviewed as well. SOCIAL HISTORY: Smoked for 40 years before quitting this year. PHYSICAL EXAMINATION: GENERAL: She is a fully awake, following commands. VITAL SIGNS: Her T-max was 103.2 on admission. Her blood pressure is stable. She is afebrile today. HEENT: Sclerae nonicteric. NECK: Supple. LUNGS: Diminished breath sounds at the bases. CARDIOVASCULAR: Regular rate. ABDOMEN: Soft and nontender. EXTREMITIES: With no pitting edema. LABORATORY DATA: Reviewed. White cell count 11.1, hemoglobin 13.6 and platelets are 176. Her urine drug screen was negative. BUN and creatinine 15 and 1.1. Albumin is 2.6. IMPRESSION: 1. Abnormal CT chest with plate-like atelectasis right lower lobe and a tiny 4 mm nodule in the left lower lobe. The nodule can be followed up in 6 months due to her history of tobacco use for 40+ years. 2. High-grade fever of 103 degrees Fahrenheit. She does have a cough with clear sputum production and acute bronchitis is likely etiology; however, she needs to be ruled out for other sources of infection due to the high-grade fever. 3. Mild nocturnal hypoxia, probably related to underlying chronic obstructive pulmonary disease and encephalopathy present on admission. It seems to have clinically resolved now. 4. Moderate protein-calorie malnutrition. RECOMMENDATIONS: 1. Continue with present oxygen to keep saturation 92% and above. 2. Incentive spirometry. 3. Continue bronchodilators. 4. Continue antibiotics. 5. Monitor fever and consider ID consult. 6. Rule out other sources of infection. Follow urine cultures and blood cultures. 7. Discussed with RN. We will follow along with you. BART PETERSON MD DR: MATHEW/lizzy JOB#: [id number] / [id number] WILLIS
--- NOTE | 2018-06-21 13:30 | CONS ---
DATE OF CONSULTATION: 06/21/2018 REFERRING PHYSICIAN: Dr. Kaminski. REASON FOR CONSULTATION: Fever. HISTORY OF PRESENT ILLNESS: This is a 57-year-old female who was brought to the ER on 06/20/2018 with history of fall. The patient on presentation was found to have fever, tachycardic, confused and had generalized rash. The patient had productive cough and symptoms of increased urinary frequency, urgency and some dysuria. She had a generalized rash on presentation over both the extremities, torso, neck, buttocks without itching present prior to admission for a day or so. She denied any sick contact. The patient states she has not been taking any new medication, though had taken something [id number] from [employer], which she could not tell me what it was. NO outdoor activities. She has a history of neuropathy and had run out of her medication recently. The patient had blood cultures done, urine cultures done, which are negative till now. She underwent head and cervical spine CT, which showed no acute intracranial process or evidence of acute fracture or subluxation. She had a CT of the abdomen, pelvis, and chest, which showed hepatomegaly, T11 vertebral body loss, moderate colonic stool content. No abdominal or pelvic lymphadenopathy or free or loculated fluid seen. On the chest xray , the heart was borderline enlarged with the coronary artery calcification. No effusion, no pneumothorax, plate-like opacities in the right lower lobe with subsegmental atelectasis and a 4-mm left pulmonary nodule, which is stable. This morning, she is more alert. Fever pattern is improving. She was started on empiric Zosyn.Patient denies any headache, visual disturbances, sore throat, difficulty swallowing, nausea, vomiting, diarrhea, abdominal pain, back pain, joint pain.She has abrasion over the left knee, but not worse, able to ambulate. She says it is improving. Denies any back pain. Denies any vaginal drainage, denies any GUD. The patient is not sexually active. Has some cough and sob but not worse. PAST MEDICAL HISTORY: Coronary artery disease, CHF, hypertension, hyperlipidemia, valve insufficiency, COPD, peripheral neuropathy, GERD, anxiety, depression, diabetes, history of hepatitis. I do not have the details on the same. PAST SURGICAL HISTORY: Status post , status post CABG. SOCIAL HISTORY: ETOH occasional. No drugs, though there is mention about marijuana in records. Denies smoking, quit years ago. for 3 years. Not sexually active. One dog. Lives with her son.No outdoor activity or travel. CURRENT MEDICATION: IV Zosyn. Other medications reviewed in medication list. ALLERGIES: PREGABALIN, HIVES. REVIEW OF SYSTEMS: As above ,otherwise neg PHYSICAL EXAMINATION: VITAL SIGNS: Temperature 98.9, T-max was 103.2, pulse 98, respiratory rate 18, blood pressure 128/57, oxygen saturation 91% on 2 liters. GENERAL: Alert, oriented x2 ,, somewhat confused, but able to answer most questions. Has tremors in the hands Pt is comfortable, sitting at the edge of bed, in no acute distress. HEENT: Normocephalic, atraumatic, anicteric. Moist, No thrush. No oral lesions. Oropharynx clear. No exudate. NECK: Supple. LUNGS: clear, no wheezing HEART: S1, S2.NO murmurs ABDOMEN: Soft, nontender, nondistended. BS+ EXTREMITIES: No edema, no cyanosis. DERMATOLOGIC: Superficial abrasion over the left knee. No purulence. Generalized maculopapular rash all over face, neck, anterior chest, back, torso. No palm or sole involvement. No skin breakdown seen. No evidence of vesicles or fluid filled lesions. No evidence of secondary bacterial infection. NEUROLOGIC: Alert and oriented x 3. Grossly nonfocal. PSYCHIATRIC: Appropriate mood and affect, cooperative. MUSCULOSKELETAL: No joint effusion. No decrease in range of motion noted. LABORATORY DATA: WBC 11.1, hemoglobin 13.6, hematocrit 40.2, platelets 176, neutrophil 84%. Sodium 140, potassium 3.6, chloride 106, bicarbonate 24, BUN 16, creatinine 1.1, glucose 94. Lactate was high at 3.9, now normal at 1.0. Albumin is 2.6. Ammonia was 52. UDS negative. UA nitrite, positive leukocyte esterase positive, 11-20. IMAGING: CT abdomen, chest, pelvis as above; CT head, cervical spine as above. Micro, blood culture negative so far. Urine culture negative so far. IMPRESSION: 1. Sepsis. etiology , could be bacterial or viral 2. Pyuria with a working diagnosis of urinary tract infection. 3. Generalized rash. etiology unclear at this time, Pt had it VP [employer] .Improving per pt 4. Acute kidney injury. 5. History of fall. 6. High ammonia. 7. H/O COPD/Suspected atelectasis. 8. Lactic acidosis.resolved 9. Altered mental status improving, no clinical evidence of meningitis or encephalitis RECOMMENDATIONS: 1. The patient has tolerated Rocephin in the past per pharmacy. Will change Zosyn to empiric cefepime, though doubt SHE HAS ALLERGIES TO BETA LACTAMS THE PATIENT HAD RASH PRIOR TO PRESENTATION. 2. Monitor renal functions closely. 3. Follow up lab and susceptibility results. 4. Follow up Urine cultures 5. Continue supportive care. 6. We will modify treatment depending on culture data and clinical status. D/W RN Thank you, Dr. Kaminski for consulting Infectious Disease to participate in this patient's care. If you have any questions, do not hesitate to contact. GIFTY BURGOS MD DR: PATRIC/lizzy JOB#: [id number] / [id number] [place]
[2018-06-21] MEDS ORDERED: CEFEPIME HCL 1 GM in IV DEXTROSE 5% 50 ML IV SCH (14:00)
--- NOTE | 2018-06-21 14:23 | PDOC ---
PROGRESS NOTES Chief Complaint Chief Complaint acute metabolic encephalopathy sepsis, sepsis syndrome, UTI, bronchitis Dm2, poor control on admit seizure h/o , on tegretol fall maybe from seizure, might now be post-ictal or unsteady gait fall, concussion, CT head OK SELVIN, vasomotr frequent falls dm2 on insulin HTN copd acute hypoxic resp failure plan: fu with id, pulm, will get neuro consult cont most home meds, hold amlodipine, still on metoprolol, losartan insulin, ssi cefepime as per ID pt wants go home, concern about insurance given she had high fever, + US, required NC 2L wo home o2, frequent falls in the past 2 weeks, will no dc. if wanna go home AMA. discussed with pt and nurse. History of Present Illness History of Present Illness ROS: n [place], sob or chest pain no home o2, now on NC 2l t 102 PT WANTS go home , said her insurance didnot cover for 5ds before Vitals Vitals Vital Signs Date Time Temp Pulse Resp B/P (MAP) Pulse Ox O2 Delivery O2 Flow Rate FiO2 06/21/18 11:00 98.9 90 16 100/57 (71) 94 Room Air 98.9 06/21/18 10:45 2.0 Physical Exam General: Alert, Oriented X3, Cooperative, mild distress, Other (lethagic, sporadically follows commands) Heart: Regular rate, Normal S1, Normal S2 Lungs: Other (bl decreased bs) Abdomen: Normal bowel sounds, Soft Extremities: No clubbing, No cyanosis, No edema, Normal pulses Skin: No breakdown, Other Labs LABS Laboratory Tests Test 06/20/18 18:04 06/20/18 20:37 06/20/18 23:07 06/21/18 00:30 White Blood Count 11.1 x10^3/uL (4.0-11.0) Red Blood Count 5.00 x10^6/uL (3.50-5.40) Hemoglobin 13.6 g/dL (12.0-15.5) Hematocrit 41.0 % (36.0-47.0) Mean Corpuscular Volume 82 fL (79-100) Mean Corpuscular Hemoglobin 27 pg (25-35) Mean Corpuscular Hemoglobin Concent 33 g/dL (31-37) Red Cell Distribution Width 17.5 % (11.5-14.5) Platelet Count 222 x10^3/uL (140-400) Neutrophils (%) (Auto) 79 % (31-73) Lymphocytes (%) (Auto) 12 % (24-48) Monocytes (%) (Auto) 7 % (0-9) Eosinophils (%) (Auto) 1 % (0-3) Basophils (%) (Auto) 0 % (0-3) Neutrophils # (Auto) 8.8 x10^3uL (1.8-7.7) Lymphocytes # (Auto) 1.4 x10^3/uL (1.0-4.8) Monocytes # (Auto) 0.8 x10^3/uL (0.0-1.1) Eosinophils # (Auto) 0.1 x10^3/uL (0.0-0.7) Basophils # (Auto) 0.0 x10^3/uL (0.0-0.2) Prothrombin Time 14.3 SEC (11.7-14.0) Prothromb Time International Ratio 1.2 (0.8-1.1) Activated Partial Thromboplast Time 31 SEC (24-38) Sodium Level 136 mmol/L (136-145) Potassium Level 4.5 mmol/L (3.5-5.1) Chloride Level 96 mmol/L (98-107) Carbon Dioxide Level 28 mmol/L (21-32) Anion Gap 12 (6-14) Blood Urea Nitrogen 15 mg/dL (7-20) Creatinine 1.4 mg/dL (0.6-1.0) Estimated GFR (Cockcroft-Gault) 38.8 BUN/Creatinine Ratio 11 (6-20) Glucose Level 207 mg/dL (70-99) Lactic Acid Level 3.9 mmol/L (0.4-2.0) 2.3 mmol/L (0.4-2.0) Calcium Level 9.4 mg/dL (8.5-10.1) Total Bilirubin 0.7 mg/dL (0.2-1.0) Aspartate Amino Transf (AST/SGOT) 27 U/L (15-37) Alanine Aminotransferase (ALT/SGPT) 31 U/L (14-59) Alkaline Phosphatase 99 U/L (46-116) Creatine Kinase 580 U/L (26-192) Troponin I Quantitative < 0.017 ng/mL (0.000-0.055) < 0.017 ng/mL (0.000-0.055) Total Protein 7.3 g/dL (6.4-8.2) Albumin 3.6 g/dL (3.4-5.0) Albumin/Globulin Ratio 1.0 (1.0-1.7) Lipase 116 U/L (73-393) Urine Collection Type Unknown Urine Color Yellow Urine Clarity Clear Urine pH 6.5 Urine Specific [place] 1.025 Urine Protein 30 mg/dL (NEG-TRACE) Urine Glucose (UA) >=1000 mg/dL (NEG) Urine Ketones (Stick) Trace mg/dL (NEG) Urine Blood Small (NEG) Urine Nitrite Positive (NEG) Urine Bilirubin Negative (NEG) Urine Urobilinogen Dipstick 0.2 mg/dL (0.2 mg/dL) Urine Leukocyte Esterase Moderate (NEG) Urine RBC 1-2 /HPF (0-2) Urine WBC 11-20 /HPF (0-4) Urine Squamous Epithelial Cells Occ /LPF Urine Bacteria Many /HPF (0-FEW) Glucose (Fingerstick) 400 mg/dL (70-99) Test 06/21/18 01:45 06/21/18 04:00 06/21/18 04:15 06/21/18 07:30 Glucose (Fingerstick) 124 mg/dL (70-99) White Blood Count 11.1 x10^3/uL (4.0-11.0) Red Blood Count 4.84 x10^6/uL (3.50-5.40) Hemoglobin 13.6 g/dL (12.0-15.5) Hematocrit 40.2 % (36.0-47.0) Mean Corpuscular Volume 83 fL (79-100) Mean Corpuscular Hemoglobin 28 pg (25-35) Mean Corpuscular Hemoglobin Concent 34 g/dL (31-37) Red Cell Distribution Width 17.7 % (11.5-14.5) Platelet Count 176 x10^3/uL (140-400) Neutrophils (%) (Auto) 84 % (31-73) Lymphocytes (%) (Auto) 9 % (24-48) Monocytes (%) (Auto) 6 % (0-9) Eosinophils (%) (Auto) 1 % (0-3) Basophils (%) (Auto) 0 % (0-3) Neutrophils # (Auto) 9.3 x10^3uL (1.8-7.7) Lymphocytes # (Auto) 1.0 x10^3/uL (1.0-4.8) Monocytes # (Auto) 0.6 x10^3/uL (0.0-1.1) Eosinophils # (Auto) 0.1 x10^3/uL (0.0-0.7) Basophils # (Auto) 0.0 x10^3/uL (0.0-0.2) Sodium Level 140 mmol/L (136-145) Potassium Level 3.6 mmol/L (3.5-5.1) Chloride Level 106 mmol/L (98-107) Carbon Dioxide Level 24 mmol/L (21-32) Anion Gap 10 (6-14) Blood Urea Nitrogen 15 mg/dL (7-20) Creatinine 1.1 mg/dL (0.6-1.0) Estimated GFR (Cockcroft-Gault) 51.2 BUN/Creatinine Ratio 14 (6-20) Glucose Level 94 mg/dL (70-99) Calcium Level 7.8 mg/dL (8.5-10.1) Total Bilirubin 0.6 mg/dL (0.2-1.0) Aspartate Amino Transf (AST/SGOT) 34 U/L (15-37) Alanine Aminotransferase (ALT/SGPT) 25 U/L (14-59) Alkaline Phosphatase 67 U/L (46-116) Ammonia 52 mcmol/L (11-34) Troponin I Quantitative < 0.017 ng/mL (0.000-0.055) Total Protein 5.6 g/dL (6.4-8.2) Albumin 2.6 g/dL (3.4-5.0) Albumin/Globulin Ratio 0.9 (1.0-1.7) Lactic Acid Level 1.0 mmol/L (0.4-2.0) Urine Opiates Screen Neg (NEG) Urine Methadone Screen Neg (NEG) Urine Barbiturates Neg (NEG) Urine Phencyclidine Screen Neg (NEG) Urine Amphetamine/Methamphetamine Neg (NEG) Urine Benzodiazepines Screen Neg (NEG) Urine Cocaine Screen Neg (NEG) Urine Cannabinoids Screen Neg (NEG) Urine Ethyl Alcohol Neg (NEG) Assessment and Plan Assessmemt and Plan Problems Medical Problems: (1) Acute renal insufficiency Status: Acute (2) Elevated lactic acid level Status: Acute (3) Fever Status: Acute (4) Rash Status: Acute (5) Severe sepsis Status: Acute (6) Weakness Status: Acute Comment Review of Relevant I have reviewed the following items garcia (where applicable) has been applied. Labs Laboratory Tests Test 06/20/18 18:04 06/20/18 20:37 06/20/18 23:07 06/21/18 00:30 White Blood Count 11.1 x10^3/uL (4.0-11.0) Red Blood Count 5.00 x10^6/uL (3.50-5.40) Hemoglobin 13.6 g/dL (12.0-15.5) Hematocrit 41.0 % (36.0-47.0) Mean Corpuscular Volume 82 fL (79-100) Mean Corpuscular Hemoglobin 27 pg (25-35) Mean Corpuscular Hemoglobin Concent 33 g/dL (31-37) Red Cell Distribution Width 17.5 % (11.5-14.5) Platelet Count 222 x10^3/uL (140-400) Neutrophils (%) (Auto) 79 % (31-73) Lymphocytes (%) (Auto) 12 % (24-48) Monocytes (%) (Auto) 7 % (0-9) Eosinophils (%) (Auto) 1 % (0-3) Basophils (%) (Auto) 0 % (0-3) Neutrophils # (Auto) 8.8 x10^3uL (1.8-7.7) Lymphocytes # (Auto) 1.4 x10^3/uL (1.0-4.8) Monocytes # (Auto) 0.8 x10^3/uL (0.0-1.1) Eosinophils # (Auto) 0.1 x10^3/uL (0.0-0.7) Basophils # (Auto) 0.0 x10^3/uL (0.0-0.2) Prothrombin Time 14.3 SEC (11.7-14.0) Prothromb Time International Ratio 1.2 (0.8-1.1) Activated Partial Thromboplast Time 31 SEC (24-38) Sodium Level 136 mmol/L (136-145) Potassium Level 4.5 mmol/L (3.5-5.1) Chloride Level 96 mmol/L (98-107) Carbon Dioxide Level 28 mmol/L (21-32) Anion Gap 12 (6-14) Blood Urea Nitrogen 15 mg/dL (7-20) Creatinine 1.4 mg/dL (0.6-1.0) Estimated GFR (Cockcroft-Gault) 38.8 BUN/Creatinine Ratio 11 (6-20) Glucose Level 207 mg/dL (70-99) Lactic Acid Level 3.9 mmol/L (0.4-2.0) 2.3 mmol/L (0.4-2.0) Calcium Level 9.4 mg/dL (8.5-10.1) Total Bilirubin 0.7 mg/dL (0.2-1.0) Aspartate Amino Transf (AST/SGOT) 27 U/L (15-37) Alanine Aminotransferase (ALT/SGPT) 31 U/L (14-59) Alkaline Phosphatase 99 U/L (46-116) Creatine Kinase 580 U/L (26-192) Troponin I Quantitative < 0.017 ng/mL (0.000-0.055) < 0.017 ng/mL (0.000-0.055) Total Protein 7.3 g/dL (6.4-8.2) Albumin 3.6 g/dL (3.4-5.0) Albumin/Globulin Ratio 1.0 (1.0-1.7) Lipase 116 U/L (73-393) Urine Collection Type Unknown Urine Color Yellow Urine Clarity Clear Urine pH 6.5 Urine Specific [place] 1.025 Urine Protein 30 mg/dL (NEG-TRACE) Urine Glucose (UA) >=1000 mg/dL (NEG) Urine Ketones (Stick) Trace mg/dL (NEG) Urine Blood Small (NEG) Urine Nitrite Positive (NEG) Urine Bilirubin Negative (NEG) Urine Urobilinogen Dipstick 0.2 mg/dL (0.2 mg/dL) Urine Leukocyte Esterase Moderate (NEG) Urine RBC 1-2 /HPF (0-2) Urine WBC 11-20 /HPF (0-4) Urine Squamous Epithelial Cells Occ /LPF Urine Bacteria Many /HPF (0-FEW) Glucose (Fingerstick) 400 mg/dL (70-99) Test 06/21/18 01:45 06/21/18 04:00 06/21/18 04:15 06/21/18 07:30 Glucose (Fingerstick) 124 mg/dL (70-99) White Blood Count 11.1 x10^3/uL (4.0-11.0) Red Blood Count 4.84 x10^6/uL (3.50-5.40) Hemoglobin 13.6 g/dL (12.0-15.5) Hematocrit 40.2 % (36.0-47.0) Mean Corpuscular Volume 83 fL (79-100) Mean Corpuscular Hemoglobin 28 pg (25-35) Mean Corpuscular Hemoglobin Concent 34 g/dL (31-37) Red Cell Distribution Width 17.7 % (11.5-14.5) Platelet Count 176 x10^3/uL (140-400) Neutrophils (%) (Auto) 84 % (31-73) Lymphocytes (%) (Auto) 9 % (24-48) Monocytes (%) (Auto) 6 % (0-9) Eosinophils (%) (Auto) 1 % (0-3) Basophils (%) (Auto) 0 % (0-3) Neutrophils # (Auto) 9.3 x10^3uL (1.8-7.7) Lymphocytes # (Auto) 1.0 x10^3/uL (1.0-4.8) Monocytes # (Auto) 0.6 x10^3/uL (0.0-1.1) Eosinophils # (Auto) 0.1 x10^3/uL (0.0-0.7) Basophils # (Auto) 0.0 x10^3/uL (0.0-0.2) Sodium Level 140 mmol/L (136-145) Potassium Level 3.6 mmol/L (3.5-5.1) Chloride Level 106 mmol/L (98-107) Carbon Dioxide Level 24 mmol/L (21-32) Anion Gap 10 (6-14) Blood Urea Nitrogen 15 mg/dL (7-20) Creatinine 1.1 mg/dL (0.6-1.0) Estimated GFR (Cockcroft-Gault) 51.2 BUN/Creatinine Ratio 14 (6-20) Glucose Level 94 mg/dL (70-99) Calcium Level 7.8 mg/dL (8.5-10.1) Total Bilirubin 0.6 mg/dL (0.2-1.0) Aspartate Amino Transf (AST/SGOT) 34 U/L (15-37) Alanine Aminotransferase (ALT/SGPT) 25 U/L (14-59) Alkaline Phosphatase 67 U/L (46-116) Ammonia 52 mcmol/L (11-34) Troponin I Quantitative < 0.017 ng/mL (0.000-0.055) Total Protein 5.6 g/dL (6.4-8.2) Albumin 2.6 g/dL (3.4-5.0) Albumin/Globulin Ratio 0.9 (1.0-1.7) Lactic Acid Level 1.0 mmol/L (0.4-2.0) Urine Opiates Screen Neg (NEG) Urine Methadone Screen Neg (NEG) Urine Barbiturates Neg (NEG) Urine Phencyclidine Screen Neg (NEG) Urine Amphetamine/Methamphetamine Neg (NEG) Urine Benzodiazepines Screen Neg (NEG) Urine Cocaine Screen Neg (NEG) Urine Cannabinoids Screen Neg (NEG) Urine Ethyl Alcohol Neg (NEG) Laboratory Tests Test 06/20/18 18:04 06/20/18 20:37 06/20/18 23:07 06/21/18 00:30 White Blood Count 11.1 x10^3/uL (4.0-11.0) Red Blood Count 5.00 x10^6/uL (3.50-5.40) Hemoglobin 13.6 g/dL (12.0-15.5) Hematocrit 41.0 % (36.0-47.0) Mean Corpuscular Volume 82 fL (79-100) Mean Corpuscular Hemoglobin 27 pg (25-35) Mean Corpuscular Hemoglobin Concent 33 g/dL (31-37) Red Cell Distribution Width 17.5 % (11.5-14.5) Platelet Count 222 x10^3/uL (140-400) Neutrophils (%) (Auto) 79 % (31-73) Lymphocytes (%) (Auto) 12 % (24-48) Monocytes (%) (Auto) 7 % (0-9) Eosinophils (%) (Auto) 1 % (0-3) Basophils (%) (Auto) 0 % (0-3) Neutrophils # (Auto) 8.8 x10^3uL (1.8-7.7) Lymphocytes # (Auto) 1.4 x10^3/uL (1.0-4.8) Monocytes # (Auto) 0.8 x10^3/uL (0.0-1.1) Eosinophils # (Auto) 0.1 x10^3/uL (0.0-0.7) Basophils # (Auto) 0.0 x10^3/uL (0.0-0.2) Prothrombin Time 14.3 SEC (11.7-14.0) Prothromb Time International Ratio 1.2 (0.8-1.1) Activated Partial Thromboplast Time 31 SEC (24-38) Sodium Level 136 mmol/L (136-145) Potassium Level 4.5 mmol/L (3.5-5.1) Chloride Level 96 mmol/L (98-107) Carbon Dioxide Level 28 mmol/L (21-32) Anion Gap 12 (6-14) Blood Urea Nitrogen 15 mg/dL (7-20) Creatinine 1.4 mg/dL (0.6-1.0) Estimated GFR (Cockcroft-Gault) 38.8 BUN/Creatinine Ratio 11 (6-20) Glucose Level 207 mg/dL (70-99) Lactic Acid Level 3.9 mmol/L (0.4-2.0) 2.3 mmol/L (0.4-2.0) Calcium Level 9.4 mg/dL (8.5-10.1) Total Bilirubin 0.7 mg/dL (0.2-1.0) Aspartate Amino Transf (AST/SGOT) 27 U/L (15-37) Alanine Aminotransferase (ALT/SGPT) 31 U/L (14-59) Alkaline Phosphatase 99 U/L (46-116) Creatine Kinase 580 U/L (26-192) Troponin I Quantitative < 0.017 ng/mL (0.000-0.055) < 0.017 ng/mL (0.000-0.055) Total Protein 7.3 g/dL (6.4-8.2) Albumin 3.6 g/dL (3.4-5.0) Albumin/Globulin Ratio 1.0 (1.0-1.7) Lipase 116 U/L (73-393) Urine Collection Type Unknown Urine Color Yellow Urine Clarity Clear Urine pH 6.5 Urine Specific [place] 1.025 Urine Protein 30 mg/dL (NEG-TRACE) Urine Glucose (UA) >=1000 mg/dL (NEG) Urine Ketones (Stick) Trace mg/dL (NEG) Urine Blood Small (NEG) Urine Nitrite Positive (NEG) Urine Bilirubin Negative (NEG) Urine Urobilinogen Dipstick 0.2 mg/dL (0.2 mg/dL) Urine Leukocyte Esterase Moderate (NEG) Urine RBC 1-2 /HPF (0-2) Urine WBC 11-20 /HPF (0-4) Urine Squamous Epithelial Cells Occ /LPF Urine Bacteria Many /HPF (0-FEW) Glucose (Fingerstick) 400 mg/dL (70-99) Test 06/21/18 01:45 06/21/18 04:00 06/21/18 04:15 06/21/18 07:30 Glucose (Fingerstick) 124 mg/dL (70-99) White Blood Count 11.1 x10^3/uL (4.0-11.0) Red Blood Count 4.84 x10^6/uL (3.50-5.40) Hemoglobin 13.6 g/dL (12.0-15.5) Hematocrit 40.2 % (36.0-47.0) Mean Corpuscular Volume 83 fL (79-100) Mean Corpuscular Hemoglobin 28 pg (25-35) Mean Corpuscular Hemoglobin Concent 34 g/dL (31-37) Red Cell Distribution Width 17.7 % (11.5-14.5) Platelet Count 176 x10^3/uL (140-400) Neutrophils (%) (Auto) 84 % (31-73) Lymphocytes (%) (Auto) 9 % (24-48) Monocytes (%) (Auto) 6 % (0-9) Eosinophils (%) (Auto) 1 % (0-3) Basophils (%) (Auto) 0 % (0-3) Neutrophils # (Auto) 9.3 x10^3uL (1.8-7.7) Lymphocytes # (Auto) 1.0 x10^3/uL (1.0-4.8) Monocytes # (Auto) 0.6 x10^3/uL (0.0-1.1) Eosinophils # (Auto) 0.1 x10^3/uL (0.0-0.7) Basophils # (Auto) 0.0 x10^3/uL (0.0-0.2) Sodium Level 140 mmol/L (136-145) Potassium Level 3.6 mmol/L (3.5-5.1) Chloride Level 106 mmol/L (98-107) Carbon Dioxide Level 24 mmol/L (21-32) Anion Gap 10 (6-14) Blood Urea Nitrogen 15 mg/dL (7-20) Creatinine 1.1 mg/dL (0.6-1.0) Estimated GFR (Cockcroft-Gault) 51.2 BUN/Creatinine Ratio 14 (6-20) Glucose Level 94 mg/dL (70-99) Calcium Level 7.8 mg/dL (8.5-10.1) Total Bilirubin 0.6 mg/dL (0.2-1.0) Aspartate Amino Transf (AST/SGOT) 34 U/L (15-37) Alanine Aminotransferase (ALT/SGPT) 25 U/L (14-59) Alkaline Phosphatase 67 U/L (46-116) Ammonia 52 mcmol/L (11-34) Troponin I Quantitative < 0.017 ng/mL (0.000-0.055) Total Protein 5.6 g/dL (6.4-8.2) Albumin 2.6 g/dL (3.4-5.0) Albumin/Globulin Ratio 0.9 (1.0-1.7) Lactic Acid Level 1.0 mmol/L (0.4-2.0) Urine Opiates Screen Neg (NEG) Urine Methadone Screen Neg (NEG) Urine Barbiturates Neg (NEG) Urine Phencyclidine Screen Neg (NEG) Urine Amphetamine/Methamphetamine Neg (NEG) Urine Benzodiazepines Screen Neg (NEG) Urine Cocaine Screen Neg (NEG) Urine Cannabinoids Screen Neg (NEG) Urine Ethyl Alcohol Neg (NEG) Medications Current Medications Acetaminophen (Tylenol) 650 mg 1X ONCE PO Last administered on 06/20/18at 18:47 ; Start 06/20/18 at 18:15; Stop 06/20/18 at 18:20; Status DC Sodium Chloride 1,000 ml @ 1,000 mls/hr 1X ONCE IV Last administered on at 18:46; Start 9/22/18 at 18:15; Stop 06/20/18 at 19:14; Status DC Sodium Chloride 1,000 ml @ 1,000 mls/hr 1X ONCE IV Last administered on at 18:48; Start 06/20/18 at 18:15; Stop 06/20/18 at 19:14; Status DC Sodium Chloride 500 ml @ 500 mls/hr 1X ONCE IV Last administered on at 18:49; Start 06/20/18 at 18:15; Stop 06/20/18 at 19:14; Status DC Lorazepam (Ativan) 0.5 mg 1X ONCE IV Last administered on 06/20/18at 18:47; Start 06/20/18 at 18:45; Stop 06/20/18 at 18:46; Status DC Piperacillin Sod/ Tazobactam Sod 4.5 gm/Sodium Chloride 100 ml @ 200 mls/hr 1X ONCE IV Last administered on 06/20/18at 20:15; Start 06/20/18 at 19:15; Stop 06/20/18 at 19:44; Status DC Ondansetron HCl (Zofran) 4 mg PRN Q8HRS PRN IV NAUSEA/VOMITING; Start 06/20/18 at 21:45; Stop 06/21/18 at 21:44 Amlodipine Besylate (Norvasc) 10 mg DAILY PO Last administered on 06/21/18at 09: 49; Start 06/21/18 at 09:00 Bisacodyl (Dulcolax Supp) 20 mg PRN Q6HRS PRN RC CONSTIPATION; Start 06/20/18 at 23:15 Bisacodyl (Dulcolax Tab) 10 mg Q6HRS PO Last administered on 06/21/18at 06:08; Start 06/21/18 at 00:00 Carbamazepine (TEGretol) 200 mg BID PO Last administered on 06/21/18at 09:51; Start 06/21/18 at 09:00 Glyburide (Diabeta) 10 mg BIDWMEALS PO Last administered on 06/21/18at 09:48; Start 06/21/18 at 08:00 Losartan Potassium (Cozaar) 50 mg DAILY PO Last administered on 06/21/18at 09:51 ; Start 06/21/18 at 09:00 Simvastatin (Zocor) 10 mg QHS PO ; Start 06/21/18 at 21:00 Trimethoprim/ Sulfamethoxazole (Bactrim Ds) 1 tab BID PO ; Start 06/21/18 at 09: 00; Stop 06/21/18 at 09:00; Status DC Gabapentin (Neurontin) 900 mg BID PO Last administered on 06/21/18at 09:49; Start 06/21/18 at 09:00 Magnesium Citrate (Citroma) 296 ml DAILY PO Last administered on 06/21/18at 09: 48; Start 06/21/18 at 09:00 Metformin HCl (Glucophage) 1,000 mg BIDWMEALS PO Last administered on at 09:50; Start 06/21/18 at 08:00 Metoprolol Tartrate (Lopressor) 100 mg BID PO Last administered on 06/21/18at 09 :50; Start 06/21/18 at 09:00 Multivitamins (Thera M Plus) 1 tab DAILY PO Last administered on 06/21/18at 09: 50; Start 06/21/18 at 09:00 Nortriptyline HCl (Pamelor) 150 mg HS PO ; Start 06/21/18 at 21:00 Non-Formulary Medication (Tiotropium [place] (Spiriva)) 1 cap DAILY IH ; Start 06/21/18 at 09:00; Status UNV Insulin Human Lispro (HumaLOG) 0-9 UNITS TIDWMEALS SQ ; Start 06/21/18 at 08:00 Dextrose (Dextrose 50%-Water Syringe) 12.5 gm PRN Q15MIN PRN IV SEE COMMENTS; Start 06/20/18 at 23:15 Insulin Glargine (Lantus) 12 units QHS SQ Last administered on 06/20/18at 23:52 ; Start 06/20/18 at 23:15 Acetaminophen (Tylenol) 650 mg PRN Q6HRS PRN PO fever Last administered on 06/21at 09:48; Start 06/20/18 at 23:30 Sodium Chloride 1,000 ml @ 100 mls/hr Q10H IV Last administered on 06/21/18at 03:36; Start 06/20/18 at 23:30 Sodium Chloride 1,000 ml @ 1,000 mls/hr 1X ONCE IV Last administered on at 23:44; Start 06/20/18 at 23:30; Stop 06/21/18 at 00:29; Status DC Piperacillin Sod/ Tazobactam Sod (Zosyn Per Pharmacy) 1 each PRN DAILY PRN MC SEE COMMENTS; Start 06/20/18 at 23:30; Stop 06/21/18 at 11:48; Status DC Insulin Human Lispro (HumaLOG) 12 units 1X ONCE SQ Last administered on at 23:54; Start 06/20/18 at 23:45; Stop 06/20/18 at 23:46; Status DC Piperacillin Sod/ Tazobactam Sod 3.375 gm/Sodium Chloride 50 ml @ 100 mls/hr Q6HRS IV Last administered on 06/21/18at 06:08; Start 06/21/18 at 00:00; Stop at 10:28; Status DC Albuterol/ Ipratropium (Duoneb) 3 ml RTQID NEB Last administered on 06/21/18at 10:44; Start 06/21/18 at 08:00 Sodium Chloride 500 ml @ 500 mls/hr 1X ONCE IV Last administered on at 02:45; Start 06/21/18 at 02:45; Stop 06/21/18 at 03:44; Status DC Info (Do NOT chart on this placeholder) 1 each 1X ONCE MC ; Start 06/21/18 at 03:00; Stop 06/21/18 at 03:01; Status UNV Influenza Virus Vaccine (Afluria Trivalent [id number] Syringe) 0.5 ml ONCE ONCE VAX IM Last administered on 06/21/18at 11:47; Start 06/21/18 at 09:00; Stop at 09:01; Status DC Cefepime HCl 1 gm/ Dextrose 50 ml @ 100 mls/hr Q8HRS IV ; Start 06/21/18 at 14: 00; Status UNV Cefepime HCl (Maxipime) 1 gm Q8HRS IVP ; Start 06/21/18 at 11:00 Lactobacillus Rhamnosus (Culturelle) 1 cap BID PO ; Start 06/21/18 at 21:00 Active Scripts Active Orphenadrine Citrate 100 Mg Tablet.er 1 Tab PO BID PRN Bactrim Ds Tablet (Sulfamethoxazole/Trimethoprim) 1 Each Tablet 1 Tab PO BID 10 Days Biscolax (Bisacodyl) 10 Mg Supp.rect 20 Mg RC Q6HRS PRN Dulcolax (Bisacodyl) 5 Mg Tablet.dr 2 Tab PO Q6HRS Magnesium Citrate 296 Ml Solution 296 Ml PO DAILY 3 Days Cozaar (Losartan Potassium) 50 Mg Tablet 50 Mg PO DAILY Simvastatin 10 Mg Tablet 10 Mg PO QHS Amlodipine Besylate 10 Mg Tablet 10 Mg PO DAILY Reported [Anti-depression] [Biotin] PO DAILY Carbamazepine 200 Mg Tablet 200 Mg PO BID Glyburide 5 Mg Tablet 2 Tab PO BID Nortriptyline Hcl 75 Mg Capsule 150 Mg PO HS Spiriva (Tiotropium [place]) 18 Mcg Cap.w.dev 1 Cap IH DAILY Metformin Hcl 1,000 Mg Tablet 1,000 Mg PO BIDAC Fish Oil ([place]-3 Fatty Acids) 300 Mg Capsule 300 Mg PO Multi-Day Vitamins (Multivitamin) 1 Each Tablet 1 Cap PO DAILY Alprazolam 0.5 Mg Tablet 1 Tab PO BID PRN Gabapentin 300 Mg Capsule 900 Mg PO BID Metoprolol Tartrate 100 Mg Tablet 1 Tab PO BID Vitals/I & O Vital Sign - Last 24 Hours 06/20/18 06/20/18 06/20/18 06/20/18 17:47 19:40 20:30 21:45 Temp 102.7 102.7 Pulse 109 102 104 98 Resp 20 18 B/P (MAP) 140/101 (114) Pulse Ox 91 96 96 97 O2 Delivery Room Air 06/20/18 06/20/18 06/21/18 06/21/18 23:00 23:15 01:48 01:49 Temp 103.2 100.5 103.2 100.5 Pulse 114 107 Resp 20 B/P (MAP) 156/83 (107) 120/53 (75) Pulse Ox 92 87 94 O2 Delivery Room Air Room Air Room Air Nasal Cannula O2 Flow Rate 2.0 06/21/18 06/21/18 06/21/18 06/21/18 03:00 07:00 08:34 09:49 Temp 98.9 98.9 98.9 98.9 Pulse 98 98 98 Resp 18 B/P (MAP) 128/57 (80) 128/57 (80) 128/57 Pulse Ox 91 91 85 O2 Delivery Nasal Cannula Room Air Room Air O2 Flow Rate 2.0 2.0 06/21/18 06/21/18 06/21/18 06/21/18 09:50 09:51 10:45 11:00 Temp 98.9 98.9 Pulse 98 98 90 Resp 16 B/P (MAP) 128/57 128/57 100/57 (71) Pulse Ox 94 O2 Delivery Nasal Cannula Room Air O2 Flow Rate 2.0 Intake and Output 06/20/18 06/20/18 06/21/18 15:00 23:00 07:00 Intake Total 1550 ml Output Total 300 ml Balance 1250 ml GOMEZ MITCHELL MD Jun 21, 2018 14:22
[2018-06-21] MEDS: CEFEPIME HCL IV Push 1 GM VIAL. IVP SCH ×2 (14:24→22:00)
--- NOTE | 2018-06-21 17:45 | PDOC2 ---
NEUROLOGY CONSULT Date of Admission Date of Admission DATE: 06/21/18 TIME: 16:58 Reason for Consult Reason for Consult: IMPRESSION: Frequent falls x 6 times recently. Generalized weakness. Confusional episodes. Seizure evaluation. Fever 102. 7 degree. Skin rash, generalized. UTI. Cough. Hyperglycemia, glucose level 400. DM. Hepatosplenomegaly. HCV. Obesity. RECOMMENDATIONS/PLAN: EEG. Lab: TSH, Vit B12, D, CPK, UDS, HIV, blood culture. Treat medical diseases. Please consult ID. Cervical spine CT: No cord compression or radiculopathy. HISTORY OF THE PRESENT ILLNESS: 57-y-old female patient with above medical diseases had several falls recently. She stated she stumped something and fell and was difficult to get up sometimes. Her family had different concerns as she had confusional episodes. No cranial nerves symptoms. No focalized sensory or motor deficits. Past Medical History Cardiovascular: CAD, CHF, HTN, Hyperlipidemia, Valve insufficiency. Pulmonary: COPD CENTRAL NERVOUS SYSTEM: Periperal neuropathy GI: GERD Hepatobiliary: Hep A/B/C Psych: Anxiety, Depression Musculoskeletal: Other Endocrine: Diabetes Past Surgical History Family History Coronary Artery Disease, Other ALLERGY: Reviewed. MEDICATIONS: Refer to [facility] SOCIAL HISTORY: Lives at home. Denies illicit drug use. She smoked for about 40 years, but quit in 10/2017. She drinks alcohol occasionally.. REVIEW OF SYSTEMS: Constitutional: No cachexia. Head: No traumatic brain or head injury. Skin: No edema, or rash. Ear: No infection. Eyes: No vision loss or color blindness. Nose: No bleeding or purulent discharges. Hearing: No hearing decrease. Neck: No injury. Breast: No history of cancer, masses,or discharges. Cardiac: CAD, HTN. Pulmonary: Former smoker.. GI: No GI ulcer, GI bleeding. Urinary/genital: UTI. Endocrinologic: Diabetes Mellitus. Skeletomuscular: No muscular atrophy, deformity. Neurological: see HP. Psychiatric: Denies drug use/abuse. Otherwise, not [id number] review of systems. PHYSICAL EXAMINATION: General appearance is in subacute distress. HEENT: Normocephalic and nontraumatic. Eyes, nose, ears, and throat are unremarkable. Neck is supple. No lymphadenopathy. No crepitus. Cardiovascular: S1, S2, regular rate and rhythm. Pulmonary: Clear to auscultation bilaterally. Abdomen: Bowel sounds are positive. Extremities: Generalized rash in body and extremities. No restriction of range of motion NEUROLOGICAL EXAMINATION: Awake. Oriented to time, place and person. PERRL. EOMI. CN: no focal findings. Muscle tone: within normal. Muscle strength: 5- DTR: 2- Plantar reflex: Flexor response bilaterally Gait: not examined in bed. Sensory exam: no abnormal findings. No cerebellar signs elicited. F-T-N test fine. Current Medications Current Medications Current Medications Acetaminophen (Tylenol) 650 mg 1X ONCE PO Last administered on 06/20/18at 18:47 ; Start 06/20/18 at 18:15; Stop 06/20/18 at 18:20; Status DC Sodium Chloride 1,000 ml @ 1,000 mls/hr 1X ONCE IV Last administered on at 18:46; Start 06/20/18 at 18:15; Stop 06/20/18 at 19:14; Status DC Sodium Chloride 1,000 ml @ 1,000 mls/hr 1X ONCE IV Last administered on at 18:48; Start 06/20/18 at 18:15; Stop 06/20/18 at 19:14; Status DC Sodium Chloride 500 ml @ 500 mls/hr 1X ONCE IV Last administered on at 18:49; Start 06/20/18 at 18:15; Stop 06/20/18 at 19:14; Status DC Lorazepam (Ativan) 0.5 mg 1X ONCE IV Last administered on 06/20/18at 18:47; Start 06/20/18 at 18:45; Stop 06/20/18 at 18:46; Status DC Piperacillin Sod/ Tazobactam Sod 4.5 gm/Sodium Chloride 100 ml @ 200 mls/hr 1X ONCE IV Last administered on 06/20/18at 20:15; Start 06/20/18 at 19:15; Stop 06/20/18 at 19:44; Status DC Ondansetron HCl (Zofran) 4 mg PRN Q8HRS PRN IV NAUSEA/VOMITING; Start 06/20/18 at 21:45; Stop 06/21/18 at 21:44 Amlodipine Besylate (Norvasc) 10 mg DAILY PO Last administered on 06/21/18at 09: 49; Start 06/21/18 at 09:00; Stop 06/21/18 at 14:19; Status DC Bisacodyl (Dulcolax Supp) 20 mg PRN Q6HRS PRN RC CONSTIPATION; Start 06/20/18 at 23:15 Bisacodyl (Dulcolax Tab) 10 mg Q6HRS PO Last administered on 06/21/18at 14:24; Start 06/21/18 at 00:00 Carbamazepine (TEGretol) 200 mg BID PO Last administered on 06/21/18 09:51; Start 06/21/18 at 09:00 Glyburide (Diabeta) 10 mg BIDWMEALS PO Last administered on 06/21/18 09:48; Start 06/21/18 at 08:00 Losartan Potassium (Cozaar) 50 mg DAILY PO Last administered on 06/21/18 09:51 ; Start 06/21/18 at 09:00 Simvastatin (Zocor) 10 mg QHS PO ; Start 06/21/18 at 21:00 Trimethoprim/ Sulfamethoxazole (Bactrim Ds) 1 tab BID PO ; Start 06/21/18 at 09: 00; Stop 06/21/18 at 09:00; Status DC Gabapentin (Neurontin) 900 mg BID PO Last administered on 06/21/18at 09:49; Start 06/21/18 at 09:00 Magnesium Citrate (Citroma) 296 ml DAILY PO Last administered on 06/21/18at 09: 48; Start 06/21/18 at 09:00 Metformin HCl (Glucophage) 1,000 mg BIDWMEALS PO Last administered on at 09:50; Start 06/21/18 at 08:00 Metoprolol Tartrate (Lopressor) 100 mg BID PO Last administered on 06/21/18at 09 :50; Start 06/21/18 at 09:00 Multivitamins (Thera M Plus) 1 tab DAILY PO Last administered on 06/21/18at 09: 50; Start 06/21/18 at 09:00 Nortriptyline HCl (Pamelor) 150 mg HS PO ; Start 06/21/18 at 21:00 Non-Formulary Medication (Tiotropium [place] (Spiriva)) 1 cap DAILY IH ; Start 06/21/18 at 09:00; Status UNV Insulin Human Lispro (HumaLOG) 0-9 UNITS TIDWMEALS SQ Last administered on 06/21at 14:27; Start 06/21/18 at 08:00 Dextrose (Dextrose 50%-Water Syringe) 12.5 gm PRN Q15MIN PRN IV SEE COMMENTS; Start 06/20/18 at 23:15 Insulin Glargine (Lantus) 12 units QHS SQ Last administered on 06/20/18at 23:52 ; Start 06/20/18 at 23:15 Acetaminophen (Tylenol) 650 mg PRN Q6HRS PRN PO fever Last administered on 06/21at 09:48; Start 06/20/18 at 23:30 Sodium Chloride 1,000 ml @ 100 mls/hr Q10H IV Last administered on 06/21/18at 03:36; Start 06/20/18 at 23:30 Sodium Chloride 1,000 ml @ 1,000 mls/hr 1X ONCE IV Last administered on at 23:44; Start 06/20/18 at 23:30; Stop 06/21/18 at 00:29; Status DC Piperacillin Sod/ Tazobactam Sod (Zosyn Per Pharmacy) 1 each PRN DAILY PRN MC SEE COMMENTS; Start 06/20/18 at 23:30; Stop 06/21/18 at 11:48; Status DC Insulin Human Lispro (HumaLOG) 12 units 1X ONCE SQ Last administered on at 23:54; Start 06/20/18 at 23:45; Stop 06/20/18 at 23:46; Status DC Piperacillin Sod/ Tazobactam Sod 3.375 gm/Sodium Chloride 50 ml @ 100 mls/hr Q6HRS IV Last administered on 06/21/18at 06:08; Start 06/21/18 at 00:00; Stop at 10:28; Status DC Albuterol/ Ipratropium (Duoneb) 3 ml RTQID NEB Last administered on 06/21/18at 14:42; Start 06/21/18 at 08:00 Sodium Chloride 500 ml @ 500 mls/hr 1X ONCE IV Last administered on at 02:45; Start 06/21/18 at 02:45; Stop 06/21/18 at 03:44; Status DC Info (Do NOT chart on this placeholder) 1 each 1X ONCE MC ; Start 06/21/18 at 03:00; Stop 06/21/18 at 03:01; Status UNV Influenza Virus Vaccine (Afluria Trivalent [id number] Syringe) 0.5 ml ONCE ONCE VAX IM Last administered on 06/21/18at 11:47; Start 06/21/18 at 09:00; Stop at 09:01; Status DC Cefepime HCl 1 gm/ Dextrose 50 ml @ 100 mls/hr Q8HRS IV ; Start 06/21/18 at 14: 00; Status UNV Cefepime HCl (Maxipime) 1 gm Q8HRS IVP Last administered on 06/21/18at 14:24; Start 06/21/18 at 11:00 Lactobacillus Rhamnosus (Culturelle) 1 cap BID PO ; Start 06/21/18 at 21:00 Active Scripts Active Orphenadrine Citrate 100 Mg Tablet.er 1 Tab PO BID PRN Bactrim Ds Tablet (Sulfamethoxazole/Trimethoprim) 1 Each Tablet 1 Tab PO BID 10 Days Biscolax (Bisacodyl) 10 Mg Supp.rect 20 Mg RC Q6HRS PRN Dulcolax (Bisacodyl) 5 Mg Tablet.dr 2 Tab PO Q6HRS Magnesium Citrate 296 Ml Solution 296 Ml PO DAILY 3 Days Cozaar (Losartan Potassium) 50 Mg Tablet 50 Mg PO DAILY Simvastatin 10 Mg Tablet 10 Mg PO QHS Amlodipine Besylate 10 Mg Tablet 10 Mg PO DAILY Reported [Anti-depression] [Biotin] PO DAILY Carbamazepine 200 Mg Tablet 200 Mg PO BID Glyburide 5 Mg Tablet 2 Tab PO BID Nortriptyline Hcl 75 Mg Capsule 150 Mg PO HS Spiriva (Tiotropium [place]) 18 Mcg Cap.w.dev 1 Cap IH DAILY Metformin Hcl 1,000 Mg Tablet 1,000 Mg PO BIDAC Fish Oil ([place]-3 Fatty Acids) 300 Mg Capsule 300 Mg PO Multi-Day Vitamins (Multivitamin) 1 Each Tablet 1 Cap PO DAILY Alprazolam 0.5 Mg Tablet 1 Tab PO BID PRN Gabapentin 300 Mg Capsule 900 Mg PO BID Metoprolol Tartrate 100 Mg Tablet 1 Tab PO BID Allergies Allergies: Allergies Coded Allergies Type Severity Reaction Last Updated Verified pregabalin Allergy Intermediate Hives, SUICIDAL IDEATIONS 9/23/18 Yes ROS Review of System The patient denies any associated fevers, chills, headache, ear pain, rhinorrhea , sore throat, stiff neck, productive cough, chest pain, shortness of breath, back or flank pain, abdominal pain, nausea, vomiting, diarrhea, constipation, dysuria, rash, numbness, weakness, tingling, incontinence, difficulty ambulating, or diaphoresis. Physical Exam Physical Exam General: Well developed, well nourished, no acute distress, well appearing HEENT: Pupils equally round and reactive to light, EOMI, no discharge, normal conjunctiva Neck: Supple, no nuchal rigidity, no JVD, trachea midline, no tenderness Cardiac: RRR, no murmurs, no gallops, no rubs Chest/Lungs: CTAB, no wheeze, no rhonchi, no crackles Abdomen: soft, non-distended, no guarding, no peritoneal signs, non-tender Back: No tenderness Extremities: no edema, pulses intact, non-tender,capillary refill <3 sec bilateral upper and lower extremities, Neuro: Alert and oriented x 4, no focal deficits, normal speech Vitals Vitals: Vital Signs Date Time Temp Pulse Resp B/P (MAP) Pulse Ox O2 Delivery O2 Flow Rate FiO2 06/21/18 15:00 98.9 95 16 104/47 (66) 92 Room Air 98.9 06/21/18 14:43 2.0 Labs Labs Laboratory Tests Test 06/20/18 18:04 06/20/18 20:37 06/20/18 23:07 06/21/18 00:30 White Blood Count 11.1 x10^3/uL (4.0-11.0) Red Blood Count 5.00 x10^6/uL (3.50-5.40) Hemoglobin 13.6 g/dL (12.0-15.5) Hematocrit 41.0 % (36.0-47.0) Mean Corpuscular Volume 82 fL (79-100) Mean Corpuscular Hemoglobin 27 pg (25-35) Mean Corpuscular Hemoglobin Concent 33 g/dL (31-37) Red Cell Distribution Width 17.5 % (11.5-14.5) Platelet Count 222 x10^3/uL (140-400) Neutrophils (%) (Auto) 79 % (31-73) Lymphocytes (%) (Auto) 12 % (24-48) Monocytes (%) (Auto) 7 % (0-9) Eosinophils (%) (Auto) 1 % (0-3) Basophils (%) (Auto) 0 % (0-3) Neutrophils # (Auto) 8.8 x10^3uL (1.8-7.7) Lymphocytes # (Auto) 1.4 x10^3/uL (1.0-4.8) Monocytes # (Auto) 0.8 x10^3/uL (0.0-1.1) Eosinophils # (Auto) 0.1 x10^3/uL (0.0-0.7) Basophils # (Auto) 0.0 x10^3/uL (0.0-0.2) Prothrombin Time 14.3 SEC (11.7-14.0) Prothromb Time International Ratio 1.2 (0.8-1.1) Activated Partial Thromboplast Time 31 SEC (24-38) Sodium Level 136 mmol/L (136-145) Potassium Level 4.5 mmol/L (3.5-5.1) Chloride Level 96 mmol/L (98-107) Carbon Dioxide Level 28 mmol/L (21-32) Anion Gap 12 (6-14) Blood Urea Nitrogen 15 mg/dL (7-20) Creatinine 1.4 mg/dL (0.6-1.0) Estimated GFR (Cockcroft-Gault) 38.8 BUN/Creatinine Ratio 11 (6-20) Glucose Level 207 mg/dL (70-99) Lactic Acid Level 3.9 mmol/L (0.4-2.0) 2.3 mmol/L (0.4-2.0) Calcium Level 9.4 mg/dL (8.5-10.1) Total Bilirubin 0.7 mg/dL (0.2-1.0) Aspartate Amino Transf (AST/SGOT) 27 U/L (15-37) Alanine Aminotransferase (ALT/SGPT) 31 U/L (14-59) Alkaline Phosphatase 99 U/L (46-116) Creatine Kinase 580 U/L (26-192) Troponin I Quantitative < 0.017 ng/mL (0.000-0.055) < 0.017 ng/mL (0.000-0.055) Total Protein 7.3 g/dL (6.4-8.2) Albumin 3.6 g/dL (3.4-5.0) Albumin/Globulin Ratio 1.0 (1.0-1.7) Lipase 116 U/L (73-393) Urine Collection Type Unknown Urine Color Yellow Urine Clarity Clear Urine pH 6.5 Urine Specific [place] 1.025 Urine Protein 30 mg/dL (NEG-TRACE) Urine Glucose (UA) >=1000 mg/dL (NEG) Urine Ketones (Stick) Trace mg/dL (NEG) Urine Blood Small (NEG) Urine Nitrite Positive (NEG) Urine Bilirubin Negative (NEG) Urine Urobilinogen Dipstick 0.2 mg/dL (0.2 mg/dL) Urine Leukocyte Esterase Moderate (NEG) Urine RBC 1-2 /HPF (0-2) Urine WBC 11-20 /HPF (0-4) Urine Squamous Epithelial Cells Occ /LPF Urine Bacteria Many /HPF (0-FEW) Glucose (Fingerstick) 400 mg/dL (70-99) Test 06/21/18 01:45 06/21/18 04:00 06/21/18 04:15 06/21/18 07:30 Glucose (Fingerstick) 124 mg/dL (70-99) White Blood Count 11.1 x10^3/uL (4.0-11.0) Red Blood Count 4.84 x10^6/uL (3.50-5.40) Hemoglobin 13.6 g/dL (12.0-15.5) Hematocrit 40.2 % (36.0-47.0) Mean Corpuscular Volume 83 fL (79-100) Mean Corpuscular Hemoglobin 28 pg (25-35) Mean Corpuscular Hemoglobin Concent 34 g/dL (31-37) Red Cell Distribution Width 17.7 % (11.5-14.5) Platelet Count 176 x10^3/uL (140-400) Neutrophils (%) (Auto) 84 % (31-73) Lymphocytes (%) (Auto) 9 % (24-48) Monocytes (%) (Auto) 6 % (0-9) Eosinophils (%) (Auto) 1 % (0-3) Basophils (%) (Auto) 0 % (0-3) Neutrophils # (Auto) 9.3 x10^3uL (1.8-7.7) Lymphocytes # (Auto) 1.0 x10^3/uL (1.0-4.8) Monocytes # (Auto) 0.6 x10^3/uL (0.0-1.1) Eosinophils # (Auto) 0.1 x10^3/uL (0.0-0.7) Basophils # (Auto) 0.0 x10^3/uL (0.0-0.2) Sodium Level 140 mmol/L (136-145) Potassium Level 3.6 mmol/L (3.5-5.1) Chloride Level 106 mmol/L (98-107) Carbon Dioxide Level 24 mmol/L (21-32) Anion Gap 10 (6-14) Blood Urea Nitrogen 15 mg/dL (7-20) Creatinine 1.1 mg/dL (0.6-1.0) Estimated GFR (Cockcroft-Gault) 51.2 BUN/Creatinine Ratio 14 (6-20) Glucose Level 94 mg/dL (70-99) Calcium Level 7.8 mg/dL (8.5-10.1) Total Bilirubin 0.6 mg/dL (0.2-1.0) Aspartate Amino Transf (AST/SGOT) 34 U/L (15-37) Alanine Aminotransferase (ALT/SGPT) 25 U/L (14-59) Alkaline Phosphatase 67 U/L (46-116) Ammonia 52 mcmol/L (11-34) Troponin I Quantitative < 0.017 ng/mL (0.000-0.055) Total Protein 5.6 g/dL (6.4-8.2) Albumin 2.6 g/dL (3.4-5.0) Albumin/Globulin Ratio 0.9 (1.0-1.7) Lactic Acid Level 1.0 mmol/L (0.4-2.0) Urine Opiates Screen Neg (NEG) Urine Methadone Screen Neg (NEG) Urine Barbiturates Neg (NEG) Urine Phencyclidine Screen Neg (NEG) Urine Amphetamine/Methamphetamine Neg (NEG) Urine Benzodiazepines Screen Neg (NEG) Urine Cocaine Screen Neg (NEG) Urine Cannabinoids Screen Neg (NEG) Urine Ethyl Alcohol Neg (NEG) Laboratory Tests Test 06/20/18 18:04 06/20/18 20:37 06/20/18 23:07 06/21/18 00:30 White Blood Count 11.1 x10^3/uL (4.0-11.0) Red Blood Count 5.00 x10^6/uL (3.50-5.40) Hemoglobin 13.6 g/dL (12.0-15.5) Hematocrit 41.0 % (36.0-47.0) Mean Corpuscular Volume 82 fL (79-100) Mean Corpuscular Hemoglobin 27 pg (25-35) Mean Corpuscular Hemoglobin Concent 33 g/dL (31-37) Red Cell Distribution Width 17.5 % (11.5-14.5) Platelet Count 222 x10^3/uL (140-400) Neutrophils (%) (Auto) 79 % (31-73) Lymphocytes (%) (Auto) 12 % (24-48) Monocytes (%) (Auto) 7 % (0-9) Eosinophils (%) (Auto) 1 % (0-3) Basophils (%) (Auto) 0 % (0-3) Neutrophils # (Auto) 8.8 x10^3uL (1.8-7.7) Lymphocytes # (Auto) 1.4 x10^3/uL (1.0-4.8) Monocytes # (Auto) 0.8 x10^3/uL (0.0-1.1) Eosinophils # (Auto) 0.1 x10^3/uL (0.0-0.7) Basophils # (Auto) 0.0 x10^3/uL (0.0-0.2) Prothrombin Time 14.3 SEC (11.7-14.0) Prothromb Time International Ratio 1.2 (0.8-1.1) Activated Partial Thromboplast Time 31 SEC (24-38) Sodium Level 136 mmol/L (136-145) Potassium Level 4.5 mmol/L (3.5-5.1) Chloride Level 96 mmol/L (98-107) Carbon Dioxide Level 28 mmol/L (21-32) Anion Gap 12 (6-14) Blood Urea Nitrogen 15 mg/dL (7-20) Creatinine 1.4 mg/dL (0.6-1.0) Estimated GFR (Cockcroft-Gault) 38.8 BUN/Creatinine Ratio 11 (6-20) Glucose Level 207 mg/dL (70-99) Lactic Acid Level 3.9 mmol/L (0.4-2.0) 2.3 mmol/L (0.4-2.0) Calcium Level 9.4 mg/dL (8.5-10.1) Total Bilirubin 0.7 mg/dL (0.2-1.0) Aspartate Amino Transf (AST/SGOT) 27 U/L (15-37) Alanine Aminotransferase (ALT/SGPT) 31 U/L (14-59) Alkaline Phosphatase 99 U/L (46-116) Creatine Kinase 580 U/L (26-192) Troponin I Quantitative < 0.017 ng/mL (0.000-0.055) < 0.017 ng/mL (0.000-0.055) Total Protein 7.3 g/dL (6.4-8.2) Albumin 3.6 g/dL (3.4-5.0) Albumin/Globulin Ratio 1.0 (1.0-1.7) Lipase 116 U/L (73-393) Urine Collection Type Unknown Urine Color Yellow Urine Clarity Clear Urine pH 6.5 Urine Specific [place] 1.025 Urine Protein 30 mg/dL (NEG-TRACE) Urine Glucose (UA) >=1000 mg/dL (NEG) Urine Ketones (Stick) Trace mg/dL (NEG) Urine Blood Small (NEG) Urine Nitrite Positive (NEG) Urine Bilirubin Negative (NEG) Urine Urobilinogen Dipstick 0.2 mg/dL (0.2 mg/dL) Urine Leukocyte Esterase Moderate (NEG) Urine RBC 1-2 /HPF (0-2) Urine WBC 11-20 /HPF (0-4) Urine Squamous Epithelial Cells Occ /LPF Urine Bacteria Many /HPF (0-FEW) Glucose (Fingerstick) 400 mg/dL (70-99) Test 06/21/18 01:45 06/21/18 04:00 06/21/18 04:15 06/21/18 07:30 Glucose (Fingerstick) 124 mg/dL (70-99) White Blood Count 11.1 x10^3/uL (4.0-11.0) Red Blood Count 4.84 x10^6/uL (3.50-5.40) Hemoglobin 13.6 g/dL (12.0-15.5) Hematocrit 40.2 % (36.0-47.0) Mean Corpuscular Volume 83 fL (79-100) Mean Corpuscular Hemoglobin 28 pg (25-35) Mean Corpuscular Hemoglobin Concent 34 g/dL (31-37) Red Cell Distribution Width 17.7 % (11.5-14.5) Platelet Count 176 x10^3/uL (140-400) Neutrophils (%) (Auto) 84 % (31-73) Lymphocytes (%) (Auto) 9 % (24-48) Monocytes (%) (Auto) 6 % (0-9) Eosinophils (%) (Auto) 1 % (0-3) Basophils (%) (Auto) 0 % (0-3) Neutrophils # (Auto) 9.3 x10^3uL (1.8-7.7) Lymphocytes # (Auto) 1.0 x10^3/uL (1.0-4.8) Monocytes # (Auto) 0.6 x10^3/uL (0.0-1.1) Eosinophils # (Auto) 0.1 x10^3/uL (0.0-0.7) Basophils # (Auto) 0.0 x10^3/uL (0.0-0.2) Sodium Level 140 mmol/L (136-145) Potassium Level 3.6 mmol/L (3.5-5.1) Chloride Level 106 mmol/L (98-107) Carbon Dioxide Level 24 mmol/L (21-32) Anion Gap 10 (6-14) Blood Urea Nitrogen 15 mg/dL (7-20) Creatinine 1.1 mg/dL (0.6-1.0) Estimated GFR (Cockcroft-Gault) 51.2 BUN/Creatinine Ratio 14 (6-20) Glucose Level 94 mg/dL (70-99) Calcium Level 7.8 mg/dL (8.5-10.1) Total Bilirubin 0.6 mg/dL (0.2-1.0) Aspartate Amino Transf (AST/SGOT) 34 U/L (15-37) Alanine Aminotransferase (ALT/SGPT) 25 U/L (14-59) Alkaline Phosphatase 67 U/L (46-116) Ammonia 52 mcmol/L (11-34) Troponin I Quantitative < 0.017 ng/mL (0.000-0.055) Total Protein 5.6 g/dL (6.4-8.2) Albumin 2.6 g/dL (3.4-5.0) Albumin/Globulin Ratio 0.9 (1.0-1.7) Lactic Acid Level 1.0 mmol/L (0.4-2.0) Urine Opiates Screen Neg (NEG) Urine Methadone Screen Neg (NEG) Urine Barbiturates Neg (NEG) Urine Phencyclidine Screen Neg (NEG) Urine Amphetamine/Methamphetamine Neg (NEG) Urine Benzodiazepines Screen Neg (NEG) Urine Cocaine Screen Neg (NEG) Urine Cannabinoids Screen Neg (NEG) Urine Ethyl Alcohol Neg (NEG) FINA DRAKE MD Jun 21, 2018 17:45
[2018-06-21] MEDS: INSULIN GLARGINE 300 UNITS/3 ML INSULN.PEN. SQ SCH (21:14)
--- NOTE | 2018-06-21 21:15 | EKG ---
[facility] [address] [place] [address] Test Date: 2018-06-20 Test Time: 18:01:12 Pat Name: HUY LARES Department: Room: [facility] Gender: F Shelver: MANDEEP : 1960 Requested By: SUSAN CARR Order Number: [id number] Reading MD: Shayan Hennessy Measurements Intervals [place] Rate: 103 P: -139 [place]: 192 QRS: -37 QRSD: 88 T: 79 QT: 324 QTc: 426 Interpretive Statements SINUS TACHYCARDIA ABNORMAL LEFT AXIS DEVIATION LEFT ANTERIOR FASCICULAR BLOCK CONSIDER LEFT VENTRICULAR HYPERTROPHY QRS(T) CONTOUR ABNORMALITY CONSISTENT WITH ANTEROSEPTAL INFARCT AGE UNDETERMINED ST & T ABNORMALITY, CONSIDER HIGH LATERAL ISCHEMIA OR LEFT VENTRICULAR STRAIN ABNORMAL ECG Electronically Signed On 06-23-2018 10:58:05 CDT by Shayan Hennessy
[2018-06-21] MEDS: NORTRIPTYLINE 25 MG CAPSULE PO SCH (21:16)
[2018-06-21] MEDS: LACTOBACILLUS RHAMNOSUS GG 1 CAPSULE. PO SCH (21:16)
[2018-06-21] MEDS: diphenhydrAMINE 50 MG/ML VIAL IVP PRN (21:16)
[2018-06-21] MEDS: SIMVASTATIN 10 MG TABLET PO SCH (21:17)
[2018-06-22 03:00] VITALS: BP 104/49
[2018-06-22] MEDS: IV NORMAL SALINE 1000ML BAG 1,000 ML IV SCH ×3 (03:00→21:03)
[2018-06-22] MEDS: BISACODYL 5 MG TABLET.DR. PO SCH ×4 (06:00→16:57)
[2018-06-22] MEDS: CEFEPIME HCL IV Push 1 GM VIAL. IVP SCH ×3 (06:00→20:52)
[2018-06-22 07:00] VITALS: BP 113/46
[2018-06-22 07:18] LABS: CALCIUM 8.6 mg/dL (8.5-10.1); GFR 57.1; POTASSIUM 3.6 mmol/L (3.5-5.1)
[2018-06-22 07:22] LABS: BASO % 0 % (0-3); EOS # 0.2 x10^3/uL (0.0-0.7); EOS % 3 % (0-3); HEMATOCRIT 33.1 % (36.0-47.0); HEMOGLOBIN 11.1 g/dL (12.0-15.5); LYMPH # 1.4 x10^3/uL (1.0-4.8); LYMPH % 20 % (24-48); MEAN CORPUSCULAR HEMOGLOBIN 28 pg (25-35); MEAN CORPUSCULAR HGB CONC 34 g/dL (31-37); MEAN CORPUSCULAR VOLUME 83 fL (79-100); MONO # 0.5 x10^3/uL (0.0-1.1); MONO % 8 % (0-9); NEUT # 4.7 x10^3uL (1.8-7.7); NEUT % 69 % (31-73); PLATELET COUNT 140 x10^3/uL (140-400); RED BLOOD COUNT 3.99 x10^6/uL (3.50-5.40); RED CELL DISTRIBUTION WIDTH 17.4 % (11.5-14.5); WHITE BLOOD COUNT 6.8 x10^3/uL (4.0-11.0)
[2018-06-22] MEDS: IPRATRPIUM/ALBUTEROL 0.5/2.5MG 3 ML NEBU. NEB SCH ×4 (07:27→20:32)
[2018-06-22] MEDS: INSULIN LISPRO 300 UNITS/3 ML INSULN.PEN. SQ SCH ×3 (07:58→17:08)
[2018-06-22] MEDS: glyBURIDE 5 MG TABLET PO SCH ×2 (08:00→17:00)
[2018-06-22] MEDS: LACTOBACILLUS RHAMNOSUS GG 1 CAPSULE. PO SCH ×2 (09:10→20:49)
[2018-06-22] MEDS: GABAPENTIN 300 MG CAPSULE. PO SCH ×2 (09:10→20:48)
[2018-06-22] MEDS: LOSARTAN POTASSIUM 50 MG TABLET. PO SCH (09:11)
[2018-06-22] MEDS: METOPROLOL TART IMMED RELEASE 50 MG TABLET. PO SCH ×2 (09:11→20:50)
[2018-06-22] MEDS: carBAMazepine 200 MG TABLET PO SCH ×2 (09:12→20:48)
[2018-06-22] MEDS: MULTIVITAMIN with MINERAL TABLET. PO SCH (09:12)
[2018-06-22] MEDS: MAGNESIUM CITRATE 296 ML SOLUTION. PO SCH (09:13)
--- NOTE | 2018-06-22 09:21 | PDOC ---
PULMONARY PROGRESS NOTES Vitals Vital Signs Date Time Temp Pulse Resp B/P (MAP) Pulse Ox O2 Delivery O2 Flow Rate FiO2 06/22/18 09:11 110 113/46 06/22/18 07:31 94 Nasal Cannula 2.0 06/22/18 07:00 98.7 18 98.7 General: Alert, No acute distress Lungs: Other Cardiovascular: S1 Abdomen: Soft Extremities: No Edema Labs Laboratory Tests Test 06/20/18 18:04 06/20/18 20:37 06/20/18 23:07 06/21/18 00:30 White Blood Count 11.1 x10^3/uL (4.0-11.0) Red Blood Count 5.00 x10^6/uL (3.50-5.40) Hemoglobin 13.6 g/dL (12.0-15.5) Hematocrit 41.0 % (36.0-47.0) Mean Corpuscular Volume 82 fL (79-100) Mean Corpuscular Hemoglobin 27 pg (25-35) Mean Corpuscular Hemoglobin Concent 33 g/dL (31-37) Red Cell Distribution Width 17.5 % (11.5-14.5) Platelet Count 222 x10^3/uL (140-400) Neutrophils (%) (Auto) 79 % (31-73) Lymphocytes (%) (Auto) 12 % (24-48) Monocytes (%) (Auto) 7 % (0-9) Eosinophils (%) (Auto) 1 % (0-3) Basophils (%) (Auto) 0 % (0-3) Neutrophils # (Auto) 8.8 x10^3uL (1.8-7.7) Lymphocytes # (Auto) 1.4 x10^3/uL (1.0-4.8) Monocytes # (Auto) 0.8 x10^3/uL (0.0-1.1) Eosinophils # (Auto) 0.1 x10^3/uL (0.0-0.7) Basophils # (Auto) 0.0 x10^3/uL (0.0-0.2) Prothrombin Time 14.3 SEC (11.7-14.0) Prothromb Time International Ratio 1.2 (0.8-1.1) Activated Partial Thromboplast Time 31 SEC (24-38) Sodium Level 136 mmol/L (136-145) Potassium Level 4.5 mmol/L (3.5-5.1) Chloride Level 96 mmol/L (98-107) Carbon Dioxide Level 28 mmol/L (21-32) Anion Gap 12 (6-14) Blood Urea Nitrogen 15 mg/dL (7-20) Creatinine 1.4 mg/dL (0.6-1.0) Estimated GFR (Cockcroft-Gault) 38.8 BUN/Creatinine Ratio 11 (6-20) Glucose Level 207 mg/dL (70-99) Lactic Acid Level 3.9 mmol/L (0.4-2.0) 2.3 mmol/L (0.4-2.0) Calcium Level 9.4 mg/dL (8.5-10.1) Total Bilirubin 0.7 mg/dL (0.2-1.0) Aspartate Amino Transf (AST/SGOT) 27 U/L (15-37) Alanine Aminotransferase (ALT/SGPT) 31 U/L (14-59) Alkaline Phosphatase 99 U/L (46-116) Creatine Kinase 580 U/L (26-192) Troponin I Quantitative < 0.017 ng/mL (0.000-0.055) < 0.017 ng/mL (0.000-0.055) Total Protein 7.3 g/dL (6.4-8.2) Albumin 3.6 g/dL (3.4-5.0) Albumin/Globulin Ratio 1.0 (1.0-1.7) Lipase 116 U/L (73-393) Urine Collection Type Unknown Urine Color Yellow Urine Clarity Clear Urine pH 6.5 Urine Specific [place] 1.025 Urine Protein 30 mg/dL (NEG-TRACE) Urine Glucose (UA) >=1000 mg/dL (NEG) Urine Ketones (Stick) Trace mg/dL (NEG) Urine Blood Small (NEG) Urine Nitrite Positive (NEG) Urine Bilirubin Negative (NEG) Urine Urobilinogen Dipstick 0.2 mg/dL (0.2 mg/dL) Urine Leukocyte Esterase Moderate (NEG) Urine RBC 1-2 /HPF (0-2) Urine WBC 11-20 /HPF (0-4) Urine Squamous Epithelial Cells Occ /LPF Urine Bacteria Many /HPF (0-FEW) Glucose (Fingerstick) 400 mg/dL (70-99) Test 06/21/18 01:45 06/21/18 04:00 06/21/18 04:15 06/21/18 07:30 Glucose (Fingerstick) 124 mg/dL (70-99) White Blood Count 11.1 x10^3/uL (4.0-11.0) Red Blood Count 4.84 x10^6/uL (3.50-5.40) Hemoglobin 13.6 g/dL (12.0-15.5) Hematocrit 40.2 % (36.0-47.0) Mean Corpuscular Volume 83 fL (79-100) Mean Corpuscular Hemoglobin 28 pg (25-35) Mean Corpuscular Hemoglobin Concent 34 g/dL (31-37) Red Cell Distribution Width 17.7 % (11.5-14.5) Platelet Count 176 x10^3/uL (140-400) Neutrophils (%) (Auto) 84 % (31-73) Lymphocytes (%) (Auto) 9 % (24-48) Monocytes (%) (Auto) 6 % (0-9) Eosinophils (%) (Auto) 1 % (0-3) Basophils (%) (Auto) 0 % (0-3) Neutrophils # (Auto) 9.3 x10^3uL (1.8-7.7) Lymphocytes # (Auto) 1.0 x10^3/uL (1.0-4.8) Monocytes # (Auto) 0.6 x10^3/uL (0.0-1.1) Eosinophils # (Auto) 0.1 x10^3/uL (0.0-0.7) Basophils # (Auto) 0.0 x10^3/uL (0.0-0.2) Sodium Level 140 mmol/L (136-145) Potassium Level 3.6 mmol/L (3.5-5.1) Chloride Level 106 mmol/L (98-107) Carbon Dioxide Level 24 mmol/L (21-32) Anion Gap 10 (6-14) Blood Urea Nitrogen 15 mg/dL (7-20) Creatinine 1.1 mg/dL (0.6-1.0) Estimated GFR (Cockcroft-Gault) 51.2 BUN/Creatinine Ratio 14 (6-20) Glucose Level 94 mg/dL (70-99) Calcium Level 7.8 mg/dL (8.5-10.1) Total Bilirubin 0.6 mg/dL (0.2-1.0) Aspartate Amino Transf (AST/SGOT) 34 U/L (15-37) Alanine Aminotransferase (ALT/SGPT) 25 U/L (14-59) Alkaline Phosphatase 67 U/L (46-116) Ammonia 52 mcmol/L (11-34) Creatine Kinase 773 U/L (26-192) Troponin I Quantitative < 0.017 ng/mL (0.000-0.055) Total Protein 5.6 g/dL (6.4-8.2) Albumin 2.6 g/dL (3.4-5.0) Albumin/Globulin Ratio 0.9 (1.0-1.7) Thyroid Stimulating Hormone (TSH) 2.369 uIU/mL (0.358-3.74) Lactic Acid Level 1.0 mmol/L (0.4-2.0) Urine Opiates Screen Neg (NEG) Urine Methadone Screen Neg (NEG) Urine Barbiturates Neg (NEG) Urine Phencyclidine Screen Neg (NEG) Urine Amphetamine/Methamphetamine Neg (NEG) Urine Benzodiazepines Screen Neg (NEG) Urine Cocaine Screen Neg (NEG) Urine Cannabinoids Screen Neg (NEG) Urine Ethyl Alcohol Neg (NEG) Test 06/21/18 20:33 06/22/18 05:05 06/22/18 07:54 Glucose (Fingerstick) 186 mg/dL (70-99) 111 mg/dL (70-99) White Blood Count 6.8 x10^3/uL (4.0-11.0) Red Blood Count 3.99 x10^6/uL (3.50-5.40) Hemoglobin 11.1 g/dL (12.0-15.5) Hematocrit 33.1 % (36.0-47.0) Mean Corpuscular Volume 83 fL (79-100) Mean Corpuscular Hemoglobin 28 pg (25-35) Mean Corpuscular Hemoglobin Concent 34 g/dL (31-37) Red Cell Distribution Width 17.4 % (11.5-14.5) Platelet Count 140 x10^3/uL (140-400) Neutrophils (%) (Auto) 69 % (31-73) Lymphocytes (%) (Auto) 20 % (24-48) Monocytes (%) (Auto) 8 % (0-9) Eosinophils (%) (Auto) 3 % (0-3) Basophils (%) (Auto) 0 % (0-3) Neutrophils # (Auto) 4.7 x10^3uL (1.8-7.7) Lymphocytes # (Auto) 1.4 x10^3/uL (1.0-4.8) Monocytes # (Auto) 0.5 x10^3/uL (0.0-1.1) Eosinophils # (Auto) 0.2 x10^3/uL (0.0-0.7) Basophils # (Auto) 0.0 x10^3/uL (0.0-0.2) Sodium Level 136 mmol/L (136-145) Potassium Level 3.6 mmol/L (3.5-5.1) Chloride Level 102 mmol/L (98-107) Carbon Dioxide Level 23 mmol/L (21-32) Anion Gap 11 (6-14) Blood Urea Nitrogen 15 mg/dL (7-20) Creatinine 1.0 mg/dL (0.6-1.0) Estimated GFR (Cockcroft-Gault) 57.1 Glucose Level 111 mg/dL (70-99) Calcium Level 8.6 mg/dL (8.5-10.1) Laboratory Tests Test 06/21/18 20:33 06/22/18 05:05 06/22/18 07:54 Glucose (Fingerstick) 186 mg/dL (70-99) 111 mg/dL (70-99) White Blood Count 6.8 x10^3/uL (4.0-11.0) Red Blood Count 3.99 x10^6/uL (3.50-5.40) Hemoglobin 11.1 g/dL (12.0-15.5) Hematocrit 33.1 % (36.0-47.0) Mean Corpuscular Volume 83 fL (79-100) Mean Corpuscular Hemoglobin 28 pg (25-35) Mean Corpuscular Hemoglobin Concent 34 g/dL (31-37) Red Cell Distribution Width 17.4 % (11.5-14.5) Platelet Count 140 x10^3/uL (140-400) Neutrophils (%) (Auto) 69 % (31-73) Lymphocytes (%) (Auto) 20 % (24-48) Monocytes (%) (Auto) 8 % (0-9) Eosinophils (%) (Auto) 3 % (0-3) Basophils (%) (Auto) 0 % (0-3) Neutrophils # (Auto) 4.7 x10^3uL (1.8-7.7) Lymphocytes # (Auto) 1.4 x10^3/uL (1.0-4.8) Monocytes # (Auto) 0.5 x10^3/uL (0.0-1.1) Eosinophils # (Auto) 0.2 x10^3/uL (0.0-0.7) Basophils # (Auto) 0.0 x10^3/uL (0.0-0.2) Sodium Level 136 mmol/L (136-145) Potassium Level 3.6 mmol/L (3.5-5.1) Chloride Level 102 mmol/L (98-107) Carbon Dioxide Level 23 mmol/L (21-32) Anion Gap 11 (6-14) Blood Urea Nitrogen 15 mg/dL (7-20) Creatinine 1.0 mg/dL (0.6-1.0) Estimated GFR (Cockcroft-Gault) 57.1 Glucose Level 111 mg/dL (70-99) Calcium Level 8.6 mg/dL (8.5-10.1) Medications Active Scripts Medications Dose Route/Sig Max Daily Dose Days Date Category Orphenadrine Citrate 100 Mg Tablet.er 1 Tab PO BID PRN 04/25/18 Rx Bactrim Ds Tablet (Sulfamethoxazole/Trimethoprim) 1 Each Tablet 1 Tab PO BID 10 03/30/18 Rx Biscolax (Bisacodyl) 10 Mg Supp.rect 20 Mg RC Q6HRS PRN 11/13/17 Rx Dulcolax (Bisacodyl) 5 Mg Tablet.dr 2 Tab PO Q6HRS 11/13/17 Rx Magnesium Citrate 296 Ml Solution 296 Ml PO DAILY 3 11/13/17 Rx Cozaar (Losartan Potassium) 50 Mg Tablet 50 Mg PO DAILY 11/07/17 Rx Simvastatin 10 Mg Tablet 10 Mg PO QHS 11/07/17 Rx Amlodipine Besylate 10 Mg Tablet 10 Mg PO DAILY 11/07/17 Rx [Anti-depression] 09/09/16 Reported [Biotin] PO DAILY 12/12/16 Reported Carbamazepine 200 Mg Tablet 200 Mg PO BID 06/12/14 Reported Glyburide 5 Mg Tablet 2 Tab PO BID 06/12/14 Reported Nortriptyline Hcl 75 Mg Capsule 150 Mg PO HS 06/12/14 Reported Spiriva (Tiotropium Anselmo) 18 Mcg Cap.w.dev 1 Cap IH DAILY 06/12/14 Reported Metformin Hcl 1,000 Mg Tablet 1,000 Mg PO BIDAC 06/12/14 Reported Fish Oil (Morse-3 Fatty Acids) 300 Mg Capsule 300 Mg PO 06/12/14 Reported Multi-Day Vitamins (Multivitamin) 1 Each Tablet 1 Cap PO DAILY 06/12/14 Reported Alprazolam 0.5 Mg Tablet 1 Tab PO BID PRN 06/12/14 Reported Gabapentin 300 Mg Capsule 900 Mg PO BID 06/12/14 Reported Metoprolol Tartrate 100 Mg Tablet 1 Tab PO BID 06/12/14 Reported Impression . 1. Abnormal CT chest with plate-like atelectasis right lower lobe and a tiny 4 mm nodule in the left lower lobe. The nodule can be followed up in 6 months due to her history of tobacco use for 40+ years. 2. FEVER PER ID 3. Mild nocturnal hypoxia, 4. Moderate protein-calorie malnutrition. 5. POSSIBLE PARKINSONISM Plan . ANTIBX PER ID BD FOLLOW CLINICAL COURSE FOLLOW UP IN OUR PT WITH REPEAT CT CHEST 6 MONTHS AWAIS HERNANDEZ MD Jun 22, 2018 09:21
--- NOTE | 2018-06-22 09:57 | PDOC ---
Infectious Disease Note Subjective Subjective Doing ok and wanting to go home Denies F/C/S/SOA/N/V/D/dysuria/frequency or urgency. Did fall prior to admit but states ok Rash is improving. Less itch and not spreading ROS ROS o/w neg Vital Sign Vital Signs Vital Signs Date Time Temp Pulse Resp B/P (MAP) Pulse Ox O2 Delivery O2 Flow Rate FiO2 06/22/18 09:11 110 113/46 06/22/18 07:31 94 Nasal Cannula 2.0 06/22/18 07:00 98.7 18 98.7 Physical Exam PHYSICAL EXAM GENERAL: Alert, NAD Has tremors in the hands -picking like motion particularly with left Pt is comfortable, sitting in bed, in no acute distress. HEENT: Normocephalic, atraumatic, anicteric. Moist, No thrush. No oral lesions. Oropharynx clear. No exudate. NECK: Supple. LUNGS: clear, no wheezing HEART: S1, S2.NO murmurs ABDOMEN: Soft, nontender, nondistended. BS+ EXTREMITIES: No edema, no cyanosis. DERMATOLOGIC: Superficial abrasion over the left knee. No effusion. No purulence. Generalized maculopapular rash all over face, neck, anterior chest, back, torso. No palm or sole involvement. No skin breakdown seen. No evidence of vesicles or fluid filled lesions. No evidence of secondary bacterial infection. NEUROLOGIC: Alert and oriented x 3. Grossly nonfocal. PSYCHIATRIC: Appropriate mood and affect, cooperative. MUSCULOSKELETAL: No joint effusion. No decrease in range of motion noted. Labs Lab Laboratory Tests Test 06/21/18 20:33 06/22/18 05:05 06/22/18 07:54 Glucose (Fingerstick) 186 mg/dL (70-99) 111 mg/dL (70-99) White Blood Count 6.8 x10^3/uL (4.0-11.0) Red Blood Count 3.99 x10^6/uL (3.50-5.40) Hemoglobin 11.1 g/dL (12.0-15.5) Hematocrit 33.1 % (36.0-47.0) Mean Corpuscular Volume 83 fL (79-100) Mean Corpuscular Hemoglobin 28 pg (25-35) Mean Corpuscular Hemoglobin Concent 34 g/dL (31-37) Red Cell Distribution Width 17.4 % (11.5-14.5) Platelet Count 140 x10^3/uL (140-400) Neutrophils (%) (Auto) 69 % (31-73) Lymphocytes (%) (Auto) 20 % (24-48) Monocytes (%) (Auto) 8 % (0-9) Eosinophils (%) (Auto) 3 % (0-3) Basophils (%) (Auto) 0 % (0-3) Neutrophils # (Auto) 4.7 x10^3uL (1.8-7.7) Lymphocytes # (Auto) 1.4 x10^3/uL (1.0-4.8) Monocytes # (Auto) 0.5 x10^3/uL (0.0-1.1) Eosinophils # (Auto) 0.2 x10^3/uL (0.0-0.7) Basophils # (Auto) 0.0 x10^3/uL (0.0-0.2) Sodium Level 136 mmol/L (136-145) Potassium Level 3.6 mmol/L (3.5-5.1) Chloride Level 102 mmol/L (98-107) Carbon Dioxide Level 23 mmol/L (21-32) Anion Gap 11 (6-14) Blood Urea Nitrogen 15 mg/dL (7-20) Creatinine 1.0 mg/dL (0.6-1.0) Estimated GFR (Cockcroft-Gault) 57.1 Glucose Level 111 mg/dL (70-99) Calcium Level 8.6 mg/dL (8.5-10.1) Micro Microbiology 06/21/18 Blood Culture - Preliminary, Resulted NO GROWTH AFTER 1 DAY Objective Assessment 1. Sepsis. etiology , could be bacterial or viral - better 2. Pyuria with a working diagnosis of urinary tract infection. 3. Generalized rash. etiology unclear at this time, Pt had it [employer] .Improving per pt 4. Acute kidney injury. 5. History of fall. 6. High ammonia. 7. H/O COPD/Suspected atelectasis. 8. Lactic acidosis.resolved 9. Altered mental status improving, no clinical evidence of meningitis or encephalitis Plan Plan of Care 1. Cont empiric cefepime - improving 2. Monitor renal functions closely. 3. Follow up lab and susceptibility results. 4. Follow up Urine cultures 5. Continue supportive care. 6. We will modify treatment depending on culture data and clinical status. CECELIA SMITH MD Jun 22, 2018 09:57
[2018-06-22 11:00] VITALS: BP 115/63
--- NOTE | 2018-06-22 11:39 | PDOC ---
PROGRESS NOTES Chief Complaint Chief Complaint acute metabolic encephalopathy sepsis, sepsis syndrome, UTI, bronchitis Dm2, poor control on admit seizure h/o , on tegretol fall maybe from seizure, might now be post-ictal or unsteady gait fall, concussion, CT head OK SELVIN, vasomotr frequent falls dm2 on insulin HTN copd acute hypoxic resp failure hepatosplenomegaly Parkinson's disease plan: lactulose doppler hepatic vein start sinemet fu with id, pulm, cont most home meds, hold amlodipine, still on metoprolol, losartan insulin, ssi cefepime as per ID pt wants go home, concern about insurance given she had high fever, + US, required NC 2L wo home o2, frequent falls in the past 2 weeks, likely sec to Parkinson's. discussed with pt and nurse. History of Present Illness History of Present Illness ROS: n [place], sob or chest pain no home o2, now on NC 2l t 102 PT WANTS go home , refused request based on encephalopathy add lactulose Vitals Vitals Vital Signs Date Time Temp Pulse Resp B/P (MAP) Pulse Ox O2 Delivery O2 Flow Rate FiO2 06/22/18 11:27 94 Nasal Cannula 2.0 06/22/18 11:00 98.2 81 18 115/63 (80) 98.2 Physical Exam Physical Exam GENERAL: Alert, NAD Has tremors in the hands -picking like motion particularly with left Pt is comfortable, sitting in bed, in no acute distress. HEENT: Normocephalic, atraumatic, anicteric. Moist, No thrush. No oral lesions. Oropharynx clear. No exudate. NECK: Supple. LUNGS: clear, no wheezing HEART: S1, S2.NO murmurs ABDOMEN: Soft, nontender, nondistended. BS+ EXTREMITIES: No edema, no cyanosis. DERMATOLOGIC: Superficial abrasion over the left knee. No effusion. No purulence. Generalized maculopapular rash all over face, neck, anterior chest, back, torso. No palm or sole involvement. No skin breakdown seen. No evidence of vesicles or fluid filled lesions. No evidence of secondary bacterial infection. NEUROLOGIC: Alert and oriented x 3. Grossly nonfocal. PSYCHIATRIC: Appropriate mood and affect, cooperative. MUSCULOSKELETAL: No joint effusion. No decrease in range of motion noted. General: Alert, Oriented X3, Cooperative, mild distress, Other Heart: Regular rate, Normal S1, Normal S2 Lungs: Other Abdomen: Normal bowel sounds, Soft Extremities: No clubbing, No cyanosis, No edema, Normal pulses Skin: No breakdown, Other Labs LABS FINDINGS: Lack of intravenous contrast limits evaluation of solid organs, vasculature, and lymph nodes. Chest: Heart is borderline enlarged. Coronary artery calcifications are seen. No pericardial effusion. No mediastinal or hilar lymphadenopathy by size criteria. No axillary lymphadenopathy. No pleural effusion or pneumothorax. Platelike opacities in the right lower lobe likely subsegmental atelectasis. 4 mm left lower lobe lung nodule (series 2 image 30) is stable to 04/13/2013. Abdomen and Pelvis: Liver is enlarged measuring 23.5 cm in length. No focal liver lesion. Gallbladder is unremarkable. No biliary ductal dilatation. Pancreas is unremarkable. Adrenal glands are normal. Spleen is enlarged measuring 14 cm in AP dimension. No definite renal lesion. No renal calculi. No hydronephrosis. Atherosclerotic calcifications of aorta and iliacs are seen. Moderate colonic stool content. No small or large bowel dilatation. Appendix is normal. No abdominal or pelvic lymphadenopathy. No abdominal pelvic ascites. Bones: Degenerative changes of the hip joints are seen. There is height loss of the T11 vertebral body with associated transverse sclerosis, progressed since 11/13/2017 but age-indeterminate compression fracture. IMPRESSION: 1. Hepatosplenomegaly. 2. T11 vertebral body height loss, progressed since prior 11/13/2017, however age indeterminate. 3. Moderate colonic stool content. 4. No abdominal or pelvic lymphadenopathy or free or loculated fluid collection. Laboratory Tests Test 06/21/18 20:33 06/22/18 05:05 06/22/18 07:54 06/22/18 11:20 Glucose (Fingerstick) 186 mg/dL (70-99) 111 mg/dL (70-99) 154 mg/dL (70-99) White Blood Count 6.8 x10^3/uL (4.0-11.0) Red Blood Count 3.99 x10^6/uL (3.50-5.40) Hemoglobin 11.1 g/dL (12.0-15.5) Hematocrit 33.1 % (36.0-47.0) Mean Corpuscular Volume 83 fL (79-100) Mean Corpuscular Hemoglobin 28 pg (25-35) Mean Corpuscular Hemoglobin Concent 34 g/dL (31-37) Red Cell Distribution Width 17.4 % (11.5-14.5) Platelet Count 140 x10^3/uL (140-400) Neutrophils (%) (Auto) 69 % (31-73) Lymphocytes (%) (Auto) 20 % (24-48) Monocytes (%) (Auto) 8 % (0-9) Eosinophils (%) (Auto) 3 % (0-3) Basophils (%) (Auto) 0 % (0-3) Neutrophils # (Auto) 4.7 x10^3uL (1.8-7.7) Lymphocytes # (Auto) 1.4 x10^3/uL (1.0-4.8) Monocytes # (Auto) 0.5 x10^3/uL (0.0-1.1) Eosinophils # (Auto) 0.2 x10^3/uL (0.0-0.7) Basophils # (Auto) 0.0 x10^3/uL (0.0-0.2) Sodium Level 136 mmol/L (136-145) Potassium Level 3.6 mmol/L (3.5-5.1) Chloride Level 102 mmol/L (98-107) Carbon Dioxide Level 23 mmol/L (21-32) Anion Gap 11 (6-14) Blood Urea Nitrogen 15 mg/dL (7-20) Creatinine 1.0 mg/dL (0.6-1.0) Estimated GFR (Cockcroft-Gault) 57.1 Glucose Level 111 mg/dL (70-99) Calcium Level 8.6 mg/dL (8.5-10.1) Assessment and Plan Assessmemt and Plan Problems Medical Problems: (1) Acute renal insufficiency Status: Acute (2) Elevated lactic acid level Status: Acute (3) Fever Status: Acute (4) Rash Status: Acute (5) Severe sepsis Status: Acute (6) Weakness Status: Acute Comment Review of Relevant I have reviewed the following items garcia (where applicable) has been applied. Labs Laboratory Tests Test 06/20/18 18:04 06/20/18 20:37 06/20/18 23:07 06/21/18 00:30 White Blood Count 11.1 x10^3/uL (4.0-11.0) Red Blood Count 5.00 x10^6/uL (3.50-5.40) Hemoglobin 13.6 g/dL (12.0-15.5) Hematocrit 41.0 % (36.0-47.0) Mean Corpuscular Volume 82 fL (79-100) Mean Corpuscular Hemoglobin 27 pg (25-35) Mean Corpuscular Hemoglobin Concent 33 g/dL (31-37) Red Cell Distribution Width 17.5 % (11.5-14.5) Platelet Count 222 x10^3/uL (140-400) Neutrophils (%) (Auto) 79 % (31-73) Lymphocytes (%) (Auto) 12 % (24-48) Monocytes (%) (Auto) 7 % (0-9) Eosinophils (%) (Auto) 1 % (0-3) Basophils (%) (Auto) 0 % (0-3) Neutrophils # (Auto) 8.8 x10^3uL (1.8-7.7) Lymphocytes # (Auto) 1.4 x10^3/uL (1.0-4.8) Monocytes # (Auto) 0.8 x10^3/uL (0.0-1.1) Eosinophils # (Auto) 0.1 x10^3/uL (0.0-0.7) Basophils # (Auto) 0.0 x10^3/uL (0.0-0.2) Prothrombin Time 14.3 SEC (11.7-14.0) Prothromb Time International Ratio 1.2 (0.8-1.1) Activated Partial Thromboplast Time 31 SEC (24-38) Sodium Level 136 mmol/L (136-145) Potassium Level 4.5 mmol/L (3.5-5.1) Chloride Level 96 mmol/L (98-107) Carbon Dioxide Level 28 mmol/L (21-32) Anion Gap 12 (6-14) Blood Urea Nitrogen 15 mg/dL (7-20) Creatinine 1.4 mg/dL (0.6-1.0) Estimated GFR (Cockcroft-Gault) 38.8 BUN/Creatinine Ratio 11 (6-20) Glucose Level 207 mg/dL (70-99) Lactic Acid Level 3.9 mmol/L (0.4-2.0) 2.3 mmol/L (0.4-2.0) Calcium Level 9.4 mg/dL (8.5-10.1) Total Bilirubin 0.7 mg/dL (0.2-1.0) Aspartate Amino Transf (AST/SGOT) 27 U/L (15-37) Alanine Aminotransferase (ALT/SGPT) 31 U/L (14-59) Alkaline Phosphatase 99 U/L (46-116) Creatine Kinase 580 U/L (26-192) Troponin I Quantitative < 0.017 ng/mL (0.000-0.055) < 0.017 ng/mL (0.000-0.055) Total Protein 7.3 g/dL (6.4-8.2) Albumin 3.6 g/dL (3.4-5.0) Albumin/Globulin Ratio 1.0 (1.0-1.7) Lipase 116 U/L (73-393) Urine Collection Type Unknown Urine Color Yellow Urine Clarity Clear Urine pH 6.5 Urine Specific [place] 1.025 Urine Protein 30 mg/dL (NEG-TRACE) Urine Glucose (UA) >=1000 mg/dL (NEG) Urine Ketones (Stick) Trace mg/dL (NEG) Urine Blood Small (NEG) Urine Nitrite Positive (NEG) Urine Bilirubin Negative (NEG) Urine Urobilinogen Dipstick 0.2 mg/dL (0.2 mg/dL) Urine Leukocyte Esterase Moderate (NEG) Urine RBC 1-2 /HPF (0-2) Urine WBC 11-20 /HPF (0-4) Urine Squamous Epithelial Cells Occ /LPF Urine Bacteria Many /HPF (0-FEW) Glucose (Fingerstick) 400 mg/dL (70-99) Test 06/21/18 01:45 06/21/18 04:00 06/21/18 04:15 06/21/18 07:30 Glucose (Fingerstick) 124 mg/dL (70-99) White Blood Count 11.1 x10^3/uL (4.0-11.0) Red Blood Count 4.84 x10^6/uL (3.50-5.40) Hemoglobin 13.6 g/dL (12.0-15.5) Hematocrit 40.2 % (36.0-47.0) Mean Corpuscular Volume 83 fL (79-100) Mean Corpuscular Hemoglobin 28 pg (25-35) Mean Corpuscular Hemoglobin Concent 34 g/dL (31-37) Red Cell Distribution Width 17.7 % (11.5-14.5) Platelet Count 176 x10^3/uL (140-400) Neutrophils (%) (Auto) 84 % (31-73) Lymphocytes (%) (Auto) 9 % (24-48) Monocytes (%) (Auto) 6 % (0-9) Eosinophils (%) (Auto) 1 % (0-3) Basophils (%) (Auto) 0 % (0-3) Neutrophils # (Auto) 9.3 x10^3uL (1.8-7.7) Lymphocytes # (Auto) 1.0 x10^3/uL (1.0-4.8) Monocytes # (Auto) 0.6 x10^3/uL (0.0-1.1) Eosinophils # (Auto) 0.1 x10^3/uL (0.0-0.7) Basophils # (Auto) 0.0 x10^3/uL (0.0-0.2) Sodium Level 140 mmol/L (136-145) Potassium Level 3.6 mmol/L (3.5-5.1) Chloride Level 106 mmol/L (98-107) Carbon Dioxide Level 24 mmol/L (21-32) Anion Gap 10 (6-14) Blood Urea Nitrogen 15 mg/dL (7-20) Creatinine 1.1 mg/dL (0.6-1.0) Estimated GFR (Cockcroft-Gault) 51.2 BUN/Creatinine Ratio 14 (6-20) Glucose Level 94 mg/dL (70-99) Calcium Level 7.8 mg/dL (8.5-10.1) Total Bilirubin 0.6 mg/dL (0.2-1.0) Aspartate Amino Transf (AST/SGOT) 34 U/L (15-37) Alanine Aminotransferase (ALT/SGPT) 25 U/L (14-59) Alkaline Phosphatase 67 U/L (46-116) Ammonia 52 mcmol/L (11-34) Creatine Kinase 773 U/L (26-192) Troponin I Quantitative < 0.017 ng/mL (0.000-0.055) Total Protein 5.6 g/dL (6.4-8.2) Albumin 2.6 g/dL (3.4-5.0) Albumin/Globulin Ratio 0.9 (1.0-1.7) Vitamin B12 Level 263 pg/mL (247-911) 25-Hydroxy Vitamin D Total 27.4 ng/mL (30-100) Thyroid Stimulating Hormone (TSH) 2.369 uIU/mL (0.358-3.74) HIV (1&2) Antibody Screen Nonreactive (Nonreactive) Lactic Acid Level 1.0 mmol/L (0.4-2.0) Urine Opiates Screen Neg (NEG) Urine Methadone Screen Neg (NEG) Urine Barbiturates Neg (NEG) Urine Phencyclidine Screen Neg (NEG) Urine Amphetamine/Methamphetamine Neg (NEG) Urine Benzodiazepines Screen Neg (NEG) Urine Cocaine Screen Neg (NEG) Urine Cannabinoids Screen Neg (NEG) Urine Ethyl Alcohol Neg (NEG) Test 06/21/18 20:33 06/22/18 05:05 06/22/18 07:54 06/22/18 11:20 Glucose (Fingerstick) 186 mg/dL (70-99) 111 mg/dL (70-99) 154 mg/dL (70-99) White Blood Count 6.8 x10^3/uL (4.0-11.0) Red Blood Count 3.99 x10^6/uL (3.50-5.40) Hemoglobin 11.1 g/dL (12.0-15.5) Hematocrit 33.1 % (36.0-47.0) Mean Corpuscular Volume 83 fL (79-100) Mean Corpuscular Hemoglobin 28 pg (25-35) Mean Corpuscular Hemoglobin Concent 34 g/dL (31-37) Red Cell Distribution Width 17.4 % (11.5-14.5) Platelet Count 140 x10^3/uL (140-400) Neutrophils (%) (Auto) 69 % (31-73) Lymphocytes (%) (Auto) 20 % (24-48) Monocytes (%) (Auto) 8 % (0-9) Eosinophils (%) (Auto) 3 % (0-3) Basophils (%) (Auto) 0 % (0-3) Neutrophils # (Auto) 4.7 x10^3uL (1.8-7.7) Lymphocytes # (Auto) 1.4 x10^3/uL (1.0-4.8) Monocytes # (Auto) 0.5 x10^3/uL (0.0-1.1) Eosinophils # (Auto) 0.2 x10^3/uL (0.0-0.7) Basophils # (Auto) 0.0 x10^3/uL (0.0-0.2) Sodium Level 136 mmol/L (136-145) Potassium Level 3.6 mmol/L (3.5-5.1) Chloride Level 102 mmol/L (98-107) Carbon Dioxide Level 23 mmol/L (21-32) Anion Gap 11 (6-14) Blood Urea Nitrogen 15 mg/dL (7-20) Creatinine 1.0 mg/dL (0.6-1.0) Estimated GFR (Cockcroft-Gault) 57.1 Glucose Level 111 mg/dL (70-99) Calcium Level 8.6 mg/dL (8.5-10.1) Laboratory Tests Test 06/21/18 20:33 06/22/18 05:05 06/22/18 07:54 06/22/18 11:20 Glucose (Fingerstick) 186 mg/dL (70-99) 111 mg/dL (70-99) 154 mg/dL (70-99) White Blood Count 6.8 x10^3/uL (4.0-11.0) Red Blood Count 3.99 x10^6/uL (3.50-5.40) Hemoglobin 11.1 g/dL (12.0-15.5) Hematocrit 33.1 % (36.0-47.0) Mean Corpuscular Volume 83 fL (79-100) Mean Corpuscular Hemoglobin 28 pg (25-35) Mean Corpuscular Hemoglobin Concent 34 g/dL (31-37) Red Cell Distribution Width 17.4 % (11.5-14.5) Platelet Count 140 x10^3/uL (140-400) Neutrophils (%) (Auto) 69 % (31-73) Lymphocytes (%) (Auto) 20 % (24-48) Monocytes (%) (Auto) 8 % (0-9) Eosinophils (%) (Auto) 3 % (0-3) Basophils (%) (Auto) 0 % (0-3) Neutrophils # (Auto) 4.7 x10^3uL (1.8-7.7) Lymphocytes # (Auto) 1.4 x10^3/uL (1.0-4.8) Monocytes # (Auto) 0.5 x10^3/uL (0.0-1.1) Eosinophils # (Auto) 0.2 x10^3/uL (0.0-0.7) Basophils # (Auto) 0.0 x10^3/uL (0.0-0.2) Sodium Level 136 mmol/L (136-145) Potassium Level 3.6 mmol/L (3.5-5.1) Chloride Level 102 mmol/L (98-107) Carbon Dioxide Level 23 mmol/L (21-32) Anion Gap 11 (6-14) Blood Urea Nitrogen 15 mg/dL (7-20) Creatinine 1.0 mg/dL (0.6-1.0) Estimated GFR (Cockcroft-Gault) 57.1 Glucose Level 111 mg/dL (70-99) Calcium Level 8.6 mg/dL (8.5-10.1) Microbiology 06/21/18 Blood Culture - Preliminary, Resulted NO GROWTH AFTER 1 DAY Medications Current Medications Acetaminophen (Tylenol) 650 mg 1X ONCE PO Last administered on 06/20/18at 18:47 ; Start 06/20/18 at 18:15; Stop 06/20/18 at 18:20; Status DC Sodium Chloride 1,000 ml @ 1,000 mls/hr 1X ONCE IV Last administered on at 18:46; Start 06/20/18 at 18:15; Stop 06/20/18 at 19:14; Status DC Sodium Chloride 1,000 ml @ 1,000 mls/hr 1X ONCE IV Last administered on at 18:48; Start 06/20/18 at 18:15; Stop 06/20/18 at 19:14; Status DC Sodium Chloride 500 ml @ 500 mls/hr 1X ONCE IV Last administered on at 18:49; Start 06/20/18 at 18:15; Stop 06/20/18 at 19:14; Status DC Lorazepam (Ativan) 0.5 mg 1X ONCE IV Last administered on 06/20/18at 18:47; Start 06/20/18 at 18:45; Stop 06/20/18 at 18:46; Status DC Piperacillin Sod/ Tazobactam Sod 4.5 gm/Sodium Chloride 100 ml @ 200 mls/hr 1X ONCE IV Last administered on 06/20/18at 20:15; Start 06/20/18 at 19:15; Stop 06/20/18 at 19:44; Status DC Ondansetron HCl (Zofran) 4 mg PRN Q8HRS PRN IV NAUSEA/VOMITING; Start 06/20/18 at 21:45; Stop 06/21/18 at 21:44; Status DC Amlodipine Besylate (Norvasc) 10 mg DAILY PO Last administered on 06/21/18at 09: 49; Start 06/21/18 at 09:00; Stop 06/21/18 at 14:19; Status DC Bisacodyl (Dulcolax Supp) 20 mg PRN Q6HRS PRN RC CONSTIPATION; Start 06/20/18 at 23:15 Bisacodyl (Dulcolax Tab) 10 mg Q6HRS PO Last administered on 06/21/18at 17:37; Start 06/21/18 at 00:00 Carbamazepine (TEGretol) 200 mg BID PO Last administered on 06/22/18at 09:12; Start 06/21/18 at 09:00 Glyburide (Diabeta) 10 mg BIDWMEALS PO Last administered on 06/21/18at 17:37; Start 06/21/18 at 08:00 Losartan Potassium (Cozaar) 50 mg DAILY PO Last administered on 06/22/18at 09:11 ; Start 06/21/18 at 09:00 Simvastatin (Zocor) 10 mg QHS PO Last administered on 06/21/18at 21:17; Start at 21:00 Trimethoprim/ Sulfamethoxazole (Bactrim Ds) 1 tab BID PO ; Start 06/21/18 at 09: 00; Stop 06/21/18 at 09:00; Status DC Gabapentin (Neurontin) 900 mg BID PO Last administered on 06/22/18at 09:10; Start 06/21/18 at 09:00 Magnesium Citrate (Citroma) 296 ml DAILY PO Last administered on 06/22/18at 09: 13; Start 06/21/18 at 09:00 Metformin HCl (Glucophage) 1,000 mg BIDWMEALS PO Last administered on 09:11; Start 06/21/18 at 08:00 Metoprolol Tartrate (Lopressor) 100 mg BID PO Last administered on 06/22/18at 09 :11; Start 06/21/18 at 09:00 Multivitamins (Thera M Plus) 1 tab DAILY PO Last administered on 06/22/18at 09: 12; Start 06/21/18 at 09:00 Nortriptyline HCl (Pamelor) 150 mg HS PO Last administered on 06/21/18at 21:16; Start 06/21/18 at 21:00 Non-Formulary Medication (Tiotropium [place] (Spiriva)) 1 cap DAILY IH ; Start 06/21/18 at 09:00; Status UNV Insulin Human Lispro (HumaLOG) 0-9 UNITS TIDWMEALS SQ Last administered on 06/21at 17:47; Start 06/21/18 at 08:00 Dextrose (Dextrose 50%-Water Syringe) 12.5 gm PRN Q15MIN PRN IV SEE COMMENTS; Start 06/20/18 at 23:15 Insulin Glargine (Lantus) 12 units QHS SQ Last administered on 06/21/18at 21:14 ; Start 06/20/18 at 23:15 Acetaminophen (Tylenol) 650 mg PRN Q6HRS PRN PO fever Last administered on 06/21at 21:28; Start 06/20/18 at 23:30 Sodium Chloride 1,000 ml @ 100 mls/hr Q10H IV Last administered on 06/22/18at 03:00; Start 06/20/18 at 23:30 Sodium Chloride 1,000 ml @ 1,000 mls/hr 1X ONCE IV Last administered on at 23:44; Start 06/20/18 at 23:30; Stop 06/21/18 at 00:29; Status DC Piperacillin Sod/ Tazobactam Sod (Zosyn Per Pharmacy) 1 each PRN DAILY PRN MC SEE COMMENTS; Start 06/20/18 at 23:30; Stop 06/21/18 at 11:48; Status DC Insulin Human Lispro (HumaLOG) 12 units 1X ONCE SQ Last administered on at 23:54; Start 06/20/18 at 23:45; Stop 06/20/18 at 23:46; Status DC Piperacillin Sod/ Tazobactam Sod 3.375 gm/Sodium Chloride 50 ml @ 100 mls/hr Q6HRS IV Last administered on 06/21/18at 06:08; Start 06/21/18 at 00:00; Stop at 10:28; Status DC Albuterol/ Ipratropium (Duoneb) 3 ml RTQID NEB Last administered on 06/22/18at 11:25; Start 06/21/18 at 08:00 Sodium Chloride 500 ml @ 500 mls/hr 1X ONCE IV Last administered on at 02:45; Start 06/21/18 at 02:45; Stop 06/21/18 at 03:44; Status DC Info (Do NOT chart on this placeholder) 1 each 1X ONCE MC ; Start 06/21/18 at 03:00; Stop 06/21/18 at 03:01; Status UNV Influenza Virus Vaccine (Afluria Trivalent [id number] Syringe) 0.5 ml ONCE ONCE VAX IM Last administered on 06/21/18at 11:47; Start 06/21/18 at 09:00; Stop at 09:01; Status DC Cefepime HCl 1 gm/ Dextrose 50 ml @ 100 mls/hr Q8HRS IV ; Start 06/21/18 at 14: 00; Status UNV Cefepime HCl (Maxipime) 1 gm Q8HRS IVP Last administered on 06/22/18at 06:00; Start 06/21/18 at 11:00 Lactobacillus Rhamnosus (Culturelle) 1 cap BID PO Last administered on at 09:10; Start 06/21/18 at 21:00 Diphenhydramine HCl (Benadryl) 25 mg PRN Q6HRS PRN IVP ITCHING Last administered on 06/21/18at 21:16; Start 06/21/18 at 18:45 Carbidopa/Levodopa (Sinemet 25/100) 1 tab TIDAC PO ; Start 06/22/18 at 11:30 Active Scripts Active Orphenadrine Citrate 100 Mg Tablet.er 1 Tab PO BID PRN Bactrim Ds Tablet (Sulfamethoxazole/Trimethoprim) 1 Each Tablet 1 Tab PO BID 10 Days Biscolax (Bisacodyl) 10 Mg Supp.rect 20 Mg RC Q6HRS PRN Dulcolax (Bisacodyl) 5 Mg Tablet.dr 2 Tab PO Q6HRS Magnesium Citrate 296 Ml Solution 296 Ml PO DAILY 3 Days Cozaar (Losartan Potassium) 50 Mg Tablet 50 Mg PO DAILY Simvastatin 10 Mg Tablet 10 Mg PO QHS Amlodipine Besylate 10 Mg Tablet 10 Mg PO DAILY Reported [Anti-depression] [Biotin] PO DAILY Carbamazepine 200 Mg Tablet 200 Mg PO BID Glyburide 5 Mg Tablet 2 Tab PO BID Nortriptyline Hcl 75 Mg Capsule 150 Mg PO HS Spiriva (Tiotropium Carson) 18 Mcg Cap.w.dev 1 Cap IH DAILY Metformin Hcl 1,000 Mg Tablet 1,000 Mg PO BIDAC Fish Oil ([place]-3 Fatty Acids) 300 Mg Capsule 300 Mg PO Multi-Day Vitamins (Multivitamin) 1 Each Tablet 1 Cap PO DAILY Alprazolam 0.5 Mg Tablet 1 Tab PO BID PRN Gabapentin 300 Mg Capsule 900 Mg PO BID Metoprolol Tartrate 100 Mg Tablet 1 Tab PO BID Vitals/I & O Vital Sign - Last 24 Hours 06/21/18 06/21/18 06/21/18 06/21/18 14:43 15:00 19:00 19:51 Temp 98.9 102.5 98.9 102.5 Pulse 95 111 Resp 16 18 B/P (MAP) 104/47 (66) 135/85 (102) Pulse Ox 92 94 98 O2 Delivery Nasal Cannula Room Air Nasal Cannula Nasal Cannula O2 Flow Rate 2.0 2.0 2.0 06/21/18 06/21/18 06/21/18 06/22/18 20:00 21:16 23:00 03:00 Temp 99.3 98.3 99.3 98.3 Pulse 111 95 85 Resp 18 18 B/P (MAP) 135/85 119/58 (78) 104/49 (67) Pulse Ox 94 94 O2 Delivery Nasal Cannula Nasal Cannula Nasal Cannula O2 Flow Rate 2.0 2.0 2.0 06/22/18 06/22/18 06/22/18 06/22/18 07:00 07:31 09:11 09:11 Temp 98.7 98.7 Pulse 110 110 110 Resp 18 B/P (MAP) 113/46 (68) 113/46 113/46 Pulse Ox 92 94 O2 Delivery Nasal Cannula Nasal Cannula O2 Flow Rate 2.0 2.0 06/22/18 06/22/18 11:00 11:27 Temp 98.2 98.2 Pulse 81 Resp 18 B/P (MAP) 115/63 (80) Pulse Ox 95 94 O2 Delivery Room Air Nasal Cannula O2 Flow Rate 2.0 LEONEL CAMPA MD Jun 22, 2018 11:39
[2018-06-22] MEDS: CARBIDOPA/LEVODOPA 25/100MG TABLET PO SCH ×2 (11:57→16:56)
--- NOTE | 2018-06-22 12:07 | PDOC ---
PROGRESS NOTES Assessment Problems Medical Problems: (1) Acute renal insufficiency Status: Acute (2) Elevated lactic acid level Status: Acute (3) Fever Status: Acute (4) Rash Status: Acute (5) Severe sepsis Status: Acute (6) Weakness Status: Acute Evidence of Parkinson's disease, she says that she has been trying to hide her tremor Frequent falls x 6 times recently, may be due to parkinsonism, no evidence of stroke, central or peripheral vestibular dysfunction, cervical myelopathy, peripheral neuropathy, or other cause. Confusional episodes, evaluate for seizure Fever 102. 7 degree. Skin rash, generalized. UTI. Cough. Hyperglycemia, glucose level 400. DM. Hepatosplenomegaly. HCV. Obesity. Plan EEG. I started carbidopa/levodopa and discussed side effects Treat medical diseases. Patient refuses half-way, is willing to have home health Follow up with me in 6 weeks Subjective Admits that she has been having a timer for several months, in the left hand Objective Vital Signs Date Time Temp Pulse Resp B/P (MAP) Pulse Ox O2 Delivery O2 Flow Rate FiO2 06/22/18 11:27 94 Nasal Cannula 2.0 06/22/18 11:00 98.2 81 18 115/63 (80) 98.2 PHYSICAL EXAM Alert. Oriented to time, place and person. PERRL. EOMI. CN: no focal findings. Muscle tone: some cogwheeling on the left, normal on right Muscle strength: 4/5 Left-sided resting tremor DTR: 1+ Plantar reflex: flexor Gait: unsteady, apraxic more than festinating, only took a few steps. Sensory exam: no abnormal findings. No cerebellar signs elicited. Review of Relevant I have reviewed the following items garcia (where applicable) has been applied. Labs Laboratory Tests Test 06/20/18 18:04 06/20/18 20:37 06/20/18 23:07 06/21/18 00:30 White Blood Count 11.1 x10^3/uL (4.0-11.0) Red Blood Count 5.00 x10^6/uL (3.50-5.40) Hemoglobin 13.6 g/dL (12.0-15.5) Hematocrit 41.0 % (36.0-47.0) Mean Corpuscular Volume 82 fL (79-100) Mean Corpuscular Hemoglobin 27 pg (25-35) Mean Corpuscular Hemoglobin Concent 33 g/dL (31-37) Red Cell Distribution Width 17.5 % (11.5-14.5) Platelet Count 222 x10^3/uL (140-400) Neutrophils (%) (Auto) 79 % (31-73) Lymphocytes (%) (Auto) 12 % (24-48) Monocytes (%) (Auto) 7 % (0-9) Eosinophils (%) (Auto) 1 % (0-3) Basophils (%) (Auto) 0 % (0-3) Neutrophils # (Auto) 8.8 x10^3uL (1.8-7.7) Lymphocytes # (Auto) 1.4 x10^3/uL (1.0-4.8) Monocytes # (Auto) 0.8 x10^3/uL (0.0-1.1) Eosinophils # (Auto) 0.1 x10^3/uL (0.0-0.7) Basophils # (Auto) 0.0 x10^3/uL (0.0-0.2) Prothrombin Time 14.3 SEC (11.7-14.0) Prothromb Time International Ratio 1.2 (0.8-1.1) Activated Partial Thromboplast Time 31 SEC (24-38) Sodium Level 136 mmol/L (136-145) Potassium Level 4.5 mmol/L (3.5-5.1) Chloride Level 96 mmol/L (98-107) Carbon Dioxide Level 28 mmol/L (21-32) Anion Gap 12 (6-14) Blood Urea Nitrogen 15 mg/dL (7-20) Creatinine 1.4 mg/dL (0.6-1.0) Estimated GFR (Cockcroft-Gault) 38.8 BUN/Creatinine Ratio 11 (6-20) Glucose Level 207 mg/dL (70-99) Lactic Acid Level 3.9 mmol/L (0.4-2.0) 2.3 mmol/L (0.4-2.0) Calcium Level 9.4 mg/dL (8.5-10.1) Total Bilirubin 0.7 mg/dL (0.2-1.0) Aspartate Amino Transf (AST/SGOT) 27 U/L (15-37) Alanine Aminotransferase (ALT/SGPT) 31 U/L (14-59) Alkaline Phosphatase 99 U/L (46-116) Creatine Kinase 580 U/L (26-192) Troponin I Quantitative < 0.017 ng/mL (0.000-0.055) < 0.017 ng/mL (0.000-0.055) Total Protein 7.3 g/dL (6.4-8.2) Albumin 3.6 g/dL (3.4-5.0) Albumin/Globulin Ratio 1.0 (1.0-1.7) Lipase 116 U/L (73-393) Urine Collection Type Unknown Urine Color Yellow Urine Clarity Clear Urine pH 6.5 Urine Specific [place] 1.025 Urine Protein 30 mg/dL (NEG-TRACE) Urine Glucose (UA) >=1000 mg/dL (NEG) Urine Ketones (Stick) Trace mg/dL (NEG) Urine Blood Small (NEG) Urine Nitrite Positive (NEG) Urine Bilirubin Negative (NEG) Urine Urobilinogen Dipstick 0.2 mg/dL (0.2 mg/dL) Urine Leukocyte Esterase Moderate (NEG) Urine RBC 1-2 /HPF (0-2) Urine WBC 11-20 /HPF (0-4) Urine Squamous Epithelial Cells Occ /LPF Urine Bacteria Many /HPF (0-FEW) Glucose (Fingerstick) 400 mg/dL (70-99) Test 06/21/18 01:45 06/21/18 04:00 06/21/18 04:15 06/21/18 07:30 Glucose (Fingerstick) 124 mg/dL (70-99) White Blood Count 11.1 x10^3/uL (4.0-11.0) Red Blood Count 4.84 x10^6/uL (3.50-5.40) Hemoglobin 13.6 g/dL (12.0-15.5) Hematocrit 40.2 % (36.0-47.0) Mean Corpuscular Volume 83 fL (79-100) Mean Corpuscular Hemoglobin 28 pg (25-35) Mean Corpuscular Hemoglobin Concent 34 g/dL (31-37) Red Cell Distribution Width 17.7 % (11.5-14.5) Platelet Count 176 x10^3/uL (140-400) Neutrophils (%) (Auto) 84 % (31-73) Lymphocytes (%) (Auto) 9 % (24-48) Monocytes (%) (Auto) 6 % (0-9) Eosinophils (%) (Auto) 1 % (0-3) Basophils (%) (Auto) 0 % (0-3) Neutrophils # (Auto) 9.3 x10^3uL (1.8-7.7) Lymphocytes # (Auto) 1.0 x10^3/uL (1.0-4.8) Monocytes # (Auto) 0.6 x10^3/uL (0.0-1.1) Eosinophils # (Auto) 0.1 x10^3/uL (0.0-0.7) Basophils # (Auto) 0.0 x10^3/uL (0.0-0.2) Sodium Level 140 mmol/L (136-145) Potassium Level 3.6 mmol/L (3.5-5.1) Chloride Level 106 mmol/L (98-107) Carbon Dioxide Level 24 mmol/L (21-32) Anion Gap 10 (6-14) Blood Urea Nitrogen 15 mg/dL (7-20) Creatinine 1.1 mg/dL (0.6-1.0) Estimated GFR (Cockcroft-Gault) 51.2 BUN/Creatinine Ratio 14 (6-20) Glucose Level 94 mg/dL (70-99) Calcium Level 7.8 mg/dL (8.5-10.1) Total Bilirubin 0.6 mg/dL (0.2-1.0) Aspartate Amino Transf (AST/SGOT) 34 U/L (15-37) Alanine Aminotransferase (ALT/SGPT) 25 U/L (14-59) Alkaline Phosphatase 67 U/L (46-116) Ammonia 52 mcmol/L (11-34) Creatine Kinase 773 U/L (26-192) Troponin I Quantitative < 0.017 ng/mL (0.000-0.055) Total Protein 5.6 g/dL (6.4-8.2) Albumin 2.6 g/dL (3.4-5.0) Albumin/Globulin Ratio 0.9 (1.0-1.7) Vitamin B12 Level 263 pg/mL (247-911) 25-Hydroxy Vitamin D Total 27.4 ng/mL (30-100) Thyroid Stimulating Hormone (TSH) 2.369 uIU/mL (0.358-3.74) HIV (1&2) Antibody Screen Nonreactive (Nonreactive) Lactic Acid Level 1.0 mmol/L (0.4-2.0) Urine Opiates Screen Neg (NEG) Urine Methadone Screen Neg (NEG) Urine Barbiturates Neg (NEG) Urine Phencyclidine Screen Neg (NEG) Urine Amphetamine/Methamphetamine Neg (NEG) Urine Benzodiazepines Screen Neg (NEG) Urine Cocaine Screen Neg (NEG) Urine Cannabinoids Screen Neg (NEG) Urine Ethyl Alcohol Neg (NEG) Test 06/21/18 20:33 06/22/18 05:05 06/22/18 07:54 06/22/18 11:20 Glucose (Fingerstick) 186 mg/dL (70-99) 111 mg/dL (70-99) 154 mg/dL (70-99) White Blood Count 6.8 x10^3/uL (4.0-11.0) Red Blood Count 3.99 x10^6/uL (3.50-5.40) Hemoglobin 11.1 g/dL (12.0-15.5) Hematocrit 33.1 % (36.0-47.0) Mean Corpuscular Volume 83 fL (79-100) Mean Corpuscular Hemoglobin 28 pg (25-35) Mean Corpuscular Hemoglobin Concent 34 g/dL (31-37) Red Cell Distribution Width 17.4 % (11.5-14.5) Platelet Count 140 x10^3/uL (140-400) Neutrophils (%) (Auto) 69 % (31-73) Lymphocytes (%) (Auto) 20 % (24-48) Monocytes (%) (Auto) 8 % (0-9) Eosinophils (%) (Auto) 3 % (0-3) Basophils (%) (Auto) 0 % (0-3) Neutrophils # (Auto) 4.7 x10^3uL (1.8-7.7) Lymphocytes # (Auto) 1.4 x10^3/uL (1.0-4.8) Monocytes # (Auto) 0.5 x10^3/uL (0.0-1.1) Eosinophils # (Auto) 0.2 x10^3/uL (0.0-0.7) Basophils # (Auto) 0.0 x10^3/uL (0.0-0.2) Sodium Level 136 mmol/L (136-145) Potassium Level 3.6 mmol/L (3.5-5.1) Chloride Level 102 mmol/L (98-107) Carbon Dioxide Level 23 mmol/L (21-32) Anion Gap 11 (6-14) Blood Urea Nitrogen 15 mg/dL (7-20) Creatinine 1.0 mg/dL (0.6-1.0) Estimated GFR (Cockcroft-Gault) 57.1 Glucose Level 111 mg/dL (70-99) Calcium Level 8.6 mg/dL (8.5-10.1) Laboratory Tests Test 06/21/18 20:33 06/22/18 05:05 06/22/18 07:54 06/22/18 11:20 Glucose (Fingerstick) 186 mg/dL (70-99) 111 mg/dL (70-99) 154 mg/dL (70-99) White Blood Count 6.8 x10^3/uL (4.0-11.0) Red Blood Count 3.99 x10^6/uL (3.50-5.40) Hemoglobin 11.1 g/dL (12.0-15.5) Hematocrit 33.1 % (36.0-47.0) Mean Corpuscular Volume 83 fL (79-100) Mean Corpuscular Hemoglobin 28 pg (25-35) Mean Corpuscular Hemoglobin Concent 34 g/dL (31-37) Red Cell Distribution Width 17.4 % (11.5-14.5) Platelet Count 140 x10^3/uL (140-400) Neutrophils (%) (Auto) 69 % (31-73) Lymphocytes (%) (Auto) 20 % (24-48) Monocytes (%) (Auto) 8 % (0-9) Eosinophils (%) (Auto) 3 % (0-3) Basophils (%) (Auto) 0 % (0-3) Neutrophils # (Auto) 4.7 x10^3uL (1.8-7.7) Lymphocytes # (Auto) 1.4 x10^3/uL (1.0-4.8) Monocytes # (Auto) 0.5 x10^3/uL (0.0-1.1) Eosinophils # (Auto) 0.2 x10^3/uL (0.0-0.7) Basophils # (Auto) 0.0 x10^3/uL (0.0-0.2) Sodium Level 136 mmol/L (136-145) Potassium Level 3.6 mmol/L (3.5-5.1) Chloride Level 102 mmol/L (98-107) Carbon Dioxide Level 23 mmol/L (21-32) Anion Gap 11 (6-14) Blood Urea Nitrogen 15 mg/dL (7-20) Creatinine 1.0 mg/dL (0.6-1.0) Estimated GFR (Cockcroft-Gault) 57.1 Glucose Level 111 mg/dL (70-99) Calcium Level 8.6 mg/dL (8.5-10.1) Microbiology 06/21/18 Blood Culture - Preliminary, Resulted NO GROWTH AFTER 1 DAY Medications Current Medications Acetaminophen (Tylenol) 650 mg 1X ONCE PO Last administered on 06/20/18at 18:47 ; Start 06/20/18 at 18:15; Stop 06/20/18 at 18:20; Status DC Sodium Chloride 1,000 ml @ 1,000 mls/hr 1X ONCE IV Last administered on at 18:46; Start 06/20/18 at 18:15; Stop 06/20/18 at 19:14; Status DC Sodium Chloride 1,000 ml @ 1,000 mls/hr 1X ONCE IV Last administered on at 18:48; Start 06/20/18 at 18:15; Stop 06/20/18 at 19:14; Status DC Sodium Chloride 500 ml @ 500 mls/hr 1X ONCE IV Last administered on at 18:49; Start 06/20/18 at 18:15; Stop 06/20/18 at 19:14; Status DC Lorazepam (Ativan) 0.5 mg 1X ONCE IV Last administered on 06/20/18at 18:47; Start 06/20/18 at 18:45; Stop 06/20/18 at 18:46; Status DC Piperacillin Sod/ Tazobactam Sod 4.5 gm/Sodium Chloride 100 ml @ 200 mls/hr 1X ONCE IV Last administered on 06/20/18at 20:15; Start 06/20/18 at 19:15; Stop 06/20/18 at 19:44; Status DC Ondansetron HCl (Zofran) 4 mg PRN Q8HRS PRN IV NAUSEA/VOMITING; Start 06/20/18 at 21:45; Stop 06/21/18 at 21:44; Status DC Amlodipine Besylate (Norvasc) 10 mg DAILY PO Last administered on 06/21/18at 09: 49; Start 06/21/18 at 09:00; Stop 06/21/18 at 14:19; Status DC Bisacodyl (Dulcolax Supp) 20 mg PRN Q6HRS PRN RC CONSTIPATION; Start 06/20/18 at 23:15 Bisacodyl (Dulcolax Tab) 10 mg Q6HRS PO Last administered on 06/21/18at 17:37; Start 06/21/18 at 00:00 Carbamazepine (TEGretol) 200 mg BID PO Last administered on 06/22/18 09:12; Start 06/21/18 at 09:00 Glyburide (Diabeta) 10 mg BIDWMEALS PO Last administered on 06/21/18at 17:37; Start 06/21/18 at 08:00 Losartan Potassium (Cozaar) 50 mg DAILY PO Last administered on 06/22/18 09:11 ; Start 06/21/18 at 09:00 Simvastatin (Zocor) 10 mg QHS PO Last administered on 06/21/18at 21:17; Start at 21:00 Trimethoprim/ Sulfamethoxazole (Bactrim Ds) 1 tab BID PO ; Start 06/21/18 at 09: 00; Stop 06/21/18 at 09:00; Status DC Gabapentin (Neurontin) 900 mg BID PO Last administered on 06/22/18 09:10; Start 06/21/18 at 09:00 Magnesium Citrate (Citroma) 296 ml DAILY PO Last administered on 06/22/18 09: 13; Start 06/21/18 at 09:00 Metformin HCl (Glucophage) 1,000 mg BIDWMEALS PO Last administered on 09:11; Start 06/21/18 at 08:00 Metoprolol Tartrate (Lopressor) 100 mg BID PO Last administered on 06/22/18 09 :11; Start 06/21/18 at 09:00 Multivitamins (Thera M Plus) 1 tab DAILY PO Last administered on 06/22/18at 09: 12; Start 06/21/18 at 09:00 Nortriptyline HCl (Pamelor) 150 mg HS PO Last administered on 06/21/18at 21:16; Start 06/21/18 at 21:00 Non-Formulary Medication (Tiotropium Darden (Spiriva)) 1 cap DAILY IH ; Start 06/21/18 at 09:00; Status UNV Insulin Human Lispro (HumaLOG) 0-9 UNITS TIDWMEALS SQ Last administered on 06/22at 11:57; Start 06/21/18 at 08:00 Dextrose (Dextrose 50%-Water Syringe) 12.5 gm PRN Q15MIN PRN IV SEE COMMENTS; Start 06/20/18 at 23:15 Insulin Glargine (Lantus) 12 units QHS SQ Last administered on 06/21/18at 21:14 ; Start 06/20/18 at 23:15 Acetaminophen (Tylenol) 650 mg PRN Q6HRS PRN PO fever Last administered on 06/21at 21:28; Start 06/20/18 at 23:30 Sodium Chloride 1,000 ml @ 100 mls/hr Q10H IV Last administered on 06/22/18at 03:00; Start 06/20/18 at 23:30 Sodium Chloride 1,000 ml @ 1,000 mls/hr 1X ONCE IV Last administered on at 23:44; Start 06/20/18 at 23:30; Stop 06/21/18 at 00:29; Status DC Piperacillin Sod/ Tazobactam Sod (Zosyn Per Pharmacy) 1 each PRN DAILY PRN MC SEE COMMENTS; Start 06/20/18 at 23:30; Stop 06/21/18 at 11:48; Status DC Insulin Human Lispro (HumaLOG) 12 units 1X ONCE SQ Last administered on at 23:54; Start 06/20/18 at 23:45; Stop 06/20/18 at 23:46; Status DC Piperacillin Sod/ Tazobactam Sod 3.375 gm/Sodium Chloride 50 ml @ 100 mls/hr Q6HRS IV Last administered on 06/21/18at 06:08; Start 06/21/18 at 00:00; Stop at 10:28; Status DC Albuterol/ Ipratropium (Duoneb) 3 ml RTQID NEB Last administered on 06/22/18at 11:25; Start 06/21/18 at 08:00 Sodium Chloride 500 ml @ 500 mls/hr 1X ONCE IV Last administered on at 02:45; Start 06/21/18 at 02:45; Stop 06/21/18 at 03:44; Status DC Info (Do NOT chart on this placeholder) 1 each 1X ONCE MC ; Start 06/21/18 at 03:00; Stop 06/21/18 at 03:01; Status UNV Influenza Virus Vaccine (Afluria Trivalent [id number] Syringe) 0.5 ml ONCE ONCE VAX IM Last administered on 06/21/18at 11:47; Start 06/21/18 at 09:00; Stop at 09:01; Status DC Cefepime HCl 1 gm/ Dextrose 50 ml @ 100 mls/hr Q8HRS IV ; Start 06/21/18 at 14: 00; Status UNV Cefepime HCl (Maxipime) 1 gm Q8HRS IVP Last administered on 06/22/18at 06:00; Start 06/21/18 at 11:00 Lactobacillus Rhamnosus (Culturelle) 1 cap BID PO Last administered on at 09:10; Start 06/21/18 at 21:00 Diphenhydramine HCl (Benadryl) 25 mg PRN Q6HRS PRN IVP ITCHING Last administered on 06/21/18at 21:16; Start 06/21/18 at 18:45 Carbidopa/Levodopa (Sinemet 25/100) 1 tab TIDAC PO Last administered on at 11:57; Start 06/22/18 at 11:30 Active Scripts Active Orphenadrine Citrate 100 Mg Tablet.er 1 Tab PO BID PRN Bactrim Ds Tablet (Sulfamethoxazole/Trimethoprim) 1 Each Tablet 1 Tab PO BID 10 Days Biscolax (Bisacodyl) 10 Mg Supp.rect 20 Mg RC Q6HRS PRN Dulcolax (Bisacodyl) 5 Mg Tablet.dr 2 Tab PO Q6HRS Magnesium Citrate 296 Ml Solution 296 Ml PO DAILY 3 Days Cozaar (Losartan Potassium) 50 Mg Tablet 50 Mg PO DAILY Simvastatin 10 Mg Tablet 10 Mg PO QHS Amlodipine Besylate 10 Mg Tablet 10 Mg PO DAILY Reported [Anti-depression] [Biotin] PO DAILY Carbamazepine 200 Mg Tablet 200 Mg PO BID Glyburide 5 Mg Tablet 2 Tab PO BID Nortriptyline Hcl 75 Mg Capsule 150 Mg PO HS Spiriva (Tiotropium Darden) 18 Mcg Cap.w.dev 1 Cap IH DAILY Metformin Hcl 1,000 Mg Tablet 1,000 Mg PO BIDAC Fish Oil (Perkins-3 Fatty Acids) 300 Mg Capsule 300 Mg PO Multi-Day Vitamins (Multivitamin) 1 Each Tablet 1 Cap PO DAILY Alprazolam 0.5 Mg Tablet 1 Tab PO BID PRN Gabapentin 300 Mg Capsule 900 Mg PO BID Metoprolol Tartrate 100 Mg Tablet 1 Tab PO BID Vitals/I & O Vital Sign - Last 24 Hours 06/21/18 06/21/18 06/21/18 06/21/18 14:43 15:00 19:00 19:51 Temp 98.9 102.5 98.9 102.5 Pulse 95 111 Resp 16 18 B/P (MAP) 104/47 (66) 135/85 (102) Pulse Ox 92 94 98 O2 Delivery Nasal Cannula Room Air Nasal Cannula Nasal Cannula O2 Flow Rate 2.0 2.0 2.0 06/21/18 06/21/18 06/21/18 06/22/18 20:00 21:16 23:00 03:00 Temp 99.3 98.3 99.3 98.3 Pulse 111 95 85 Resp 18 18 B/P (MAP) 135/85 119/58 (78) 104/49 (67) Pulse Ox 94 94 O2 Delivery Nasal Cannula Nasal Cannula Nasal Cannula O2 Flow Rate 2.0 2.0 2.0 06/22/18 06/22/18 06/22/18 06/22/18 07:00 07:31 09:11 09:11 Temp 98.7 98.7 Pulse 110 110 110 Resp 18 B/P (MAP) 113/46 (68) 113/46 113/46 Pulse Ox 92 94 O2 Delivery Nasal Cannula Nasal Cannula O2 Flow Rate 2.0 2.0 06/22/18 06/22/18 11:00 11:27 Temp 98.2 98.2 Pulse 81 Resp 18 B/P (MAP) 115/63 (80) Pulse Ox 95 94 O2 Delivery Room Air Nasal Cannula O2 Flow Rate 2.0 BAR KIRKLAND MD Jun 22, 2018 12:07
[2018-06-22] MEDS: diphenhydrAMINE 50 MG/ML VIAL IVP PRN ×2 (14:12→20:51)
[2018-06-22 15:00] VITALS: BP 118/65
--- NOTE | 2018-06-22 16:35 | EEG ---
DATE OF SERVICE: 06/22/2018 EEG NUMBER: [id number] performed on 06/22/2018. OBJECTIVE: The patient is a 57-year-old female with episodes of altered consciousness. DESCRIPTION: This is a digital study. Electrodes are placed according to the international 10-20 system. Bipolar and referential montages are available. Activation procedures typically include hyperventilation and intermittent photic stimulation. INTERPRETATION: The waking background consists of 9-10 Hz, 50-100 microvolt activity, symmetrically distributed over parietooccipital regions and reactive to eye opening. Hyperventilation and intermittent photic stimulation are noncontributory. Stage 1 sleep is achieved with normal electroencephalogram patterns. IMPRESSION: This electroencephalogram with the patient awake and asleep is within normal limits. There is no focal, paroxysmal, or epileptiform activity. Thank you for letting us help with the patient's care. BAR KIRKLAND MD DR: MARY/lizzy JOB#: [id number] / [id number] LUKE Perez MD
[2018-06-22] MEDS: LACTULOSE 20 GM/30 ML SOLUTION. PO SCH (18:00)
[2018-06-22 19:00] VITALS: BP 128/68
[2018-06-22] MEDS: NORTRIPTYLINE 25 MG CAPSULE PO SCH (20:47)
[2018-06-22] MEDS: SIMVASTATIN 10 MG TABLET PO SCH (20:48)
[2018-06-22] MEDS: ACETAMINOPHEN 325 MG TABLET. PO PRN (20:48)
[2018-06-22] MEDS: INSULIN GLARGINE 300 UNITS/3 ML INSULN.PEN. SQ SCH (20:55)
[2018-06-22 23:00] VITALS: BP 125/60
[2018-06-23] MEDS: BISACODYL 5 MG TABLET.DR. PO SCH ×3 (00:07→11:48)
[2018-06-23 03:00] VITALS: BP 119/67
[2018-06-23] MEDS: CEFEPIME HCL IV Push 1 GM VIAL. IVP SCH (05:46)
[2018-06-23] MEDS: CARBIDOPA/LEVODOPA 25/100MG TABLET PO SCH ×3 (05:46→16:30)
[2018-06-23] MEDS: diphenhydrAMINE 50 MG/ML VIAL IVP PRN (05:50)
[2018-06-23 07:00] VITALS: BP 156/75
[2018-06-23] MEDS: IPRATRPIUM/ALBUTEROL 0.5/2.5MG 3 ML NEBU. NEB SCH ×3 (07:21→15:22)
[2018-06-23] MEDS: INSULIN LISPRO 300 UNITS/3 ML INSULN.PEN. SQ SCH ×3 (08:00→17:22)
[2018-06-23] MEDS: LACTULOSE 20 GM/30 ML SOLUTION. PO SCH (08:00)
[2018-06-23] MEDS: MAGNESIUM CITRATE 296 ML SOLUTION. PO SCH (08:09)
--- NOTE | 2018-06-23 08:19 | RAD ---
Abdominal ultrasound, 06/22/2018: HISTORY: Hepatomegaly, hepatic encephalopathy The gallbladder is somewhat contracted. No gallstones are evident. The liver is enlarged measuring 22 cm in craniocaudad extent at the level the right lobe. It demonstrates mildly increased echogenicity suggesting fatty change. No hepatic mass or bile duct dilatation is evident. The pancreas and central retroperitoneum including the aorta and inferior vena cava were secured by overlying bowel. The spleen is at the upper limits of normal in size measuring 13 cm in craniocaudad extent. No renal abnormality is detected. No free fluid is evident in the abdomen. IMPRESSION: 1. Hepatomegaly with mildly increased hepatic echogenicity suggesting hepatic steatosis. 2. Borderline splenomegaly. 3. Obscuration of the pancreas and central retroperitoneum due to overlying bowel. Electronically signed by: Peña Ortez MD (06/23/2018 8:16 AM) [facility]
[2018-06-23] MEDS: MULTIVITAMIN with MINERAL TABLET. PO SCH (08:53)
[2018-06-23] MEDS: glyBURIDE 5 MG TABLET PO SCH ×2 (08:53→17:19)
[2018-06-23] MEDS: LOSARTAN POTASSIUM 50 MG TABLET. PO SCH (08:53)
[2018-06-23] MEDS: carBAMazepine 200 MG TABLET PO SCH (08:53)
[2018-06-23] MEDS: METOPROLOL TART IMMED RELEASE 50 MG TABLET. PO SCH (08:54)
[2018-06-23] MEDS: GABAPENTIN 300 MG CAPSULE. PO SCH (08:54)
--- NOTE | 2018-06-23 09:06 | PDOC ---
PULMONARY PROGRESS NOTES Subjective PT FEELS BETTER LESS SOA Vitals Vital Signs Date Time Temp Pulse Resp B/P (MAP) Pulse Ox O2 Delivery O2 Flow Rate FiO2 06/23/18 08:54 87 156/75 06/23/18 07:23 90 Room Air 06/23/18 07:00 97.9 16 97.9 06/23/18 03:00 2.0 General: Alert, No acute distress Lungs: Clear Cardiovascular: S1 Abdomen: Soft Extremities: No Edema Labs Laboratory Tests Test 06/21/18 11:38 06/21/18 17:08 06/21/18 20:33 06/22/18 05:05 Glucose (Fingerstick) 178 mg/dL (70-99) 155 mg/dL (70-99) 186 mg/dL (70-99) White Blood Count 6.8 x10^3/uL (4.0-11.0) Red Blood Count 3.99 x10^6/uL (3.50-5.40) Hemoglobin 11.1 g/dL (12.0-15.5) Hematocrit 33.1 % (36.0-47.0) Mean Corpuscular Volume 83 fL (79-100) Mean Corpuscular Hemoglobin 28 pg (25-35) Mean Corpuscular Hemoglobin Concent 34 g/dL (31-37) Red Cell Distribution Width 17.4 % (11.5-14.5) Platelet Count 140 x10^3/uL (140-400) Neutrophils (%) (Auto) 69 % (31-73) Lymphocytes (%) (Auto) 20 % (24-48) Monocytes (%) (Auto) 8 % (0-9) Eosinophils (%) (Auto) 3 % (0-3) Basophils (%) (Auto) 0 % (0-3) Neutrophils # (Auto) 4.7 x10^3uL (1.8-7.7) Lymphocytes # (Auto) 1.4 x10^3/uL (1.0-4.8) Monocytes # (Auto) 0.5 x10^3/uL (0.0-1.1) Eosinophils # (Auto) 0.2 x10^3/uL (0.0-0.7) Basophils # (Auto) 0.0 x10^3/uL (0.0-0.2) Sodium Level 136 mmol/L (136-145) Potassium Level 3.6 mmol/L (3.5-5.1) Chloride Level 102 mmol/L (98-107) Carbon Dioxide Level 23 mmol/L (21-32) Anion Gap 11 (6-14) Blood Urea Nitrogen 15 mg/dL (7-20) Creatinine 1.0 mg/dL (0.6-1.0) Estimated GFR (Cockcroft-Gault) 57.1 Glucose Level 111 mg/dL (70-99) Calcium Level 8.6 mg/dL (8.5-10.1) Test 06/22/18 07:54 06/22/18 11:20 06/22/18 16:10 06/22/18 20:38 Glucose (Fingerstick) 111 mg/dL (70-99) 154 mg/dL (70-99) 165 mg/dL (70-99) 180 mg/dL (70-99) Laboratory Tests Test 06/22/18 11:20 06/22/18 16:10 06/22/18 20:38 Glucose (Fingerstick) 154 mg/dL (70-99) 165 mg/dL (70-99) 180 mg/dL (70-99) Medications Active Scripts Medications Dose Route/Sig Max Daily Dose Days Date Category Orphenadrine Citrate 100 Mg Tablet.er 1 Tab PO BID PRN 04/25/18 Rx Bactrim Ds Tablet (Sulfamethoxazole/Trimethoprim) 1 Each Tablet 1 Tab PO BID 10 03/30/18 Rx Biscolax (Bisacodyl) 10 Mg Supp.rect 20 Mg RC Q6HRS PRN 11/13/17 Rx Dulcolax (Bisacodyl) 5 Mg Tablet.dr 2 Tab PO Q6HRS 11/13/17 Rx Magnesium Citrate 296 Ml Solution 296 Ml PO DAILY 3 11/13/17 Rx Cozaar (Losartan Potassium) 50 Mg Tablet 50 Mg PO DAILY 11/07/17 Rx Simvastatin 10 Mg Tablet 10 Mg PO QHS 11/07/17 Rx Amlodipine Besylate 10 Mg Tablet 10 Mg PO DAILY 11/07/17 Rx [Anti-depression] 09/09/16 Reported [Biotin] PO DAILY 09/09/16 Reported Carbamazepine 200 Mg Tablet 200 Mg PO BID 06/12/14 Reported Glyburide 5 Mg Tablet 2 Tab PO BID 06/12/14 Reported Nortriptyline Hcl 75 Mg Capsule 150 Mg PO HS 06/12/14 Reported Spiriva (Tiotropium Roy) 18 Mcg Cap.w.dev 1 Cap IH DAILY 06/12/14 Reported Metformin Hcl 1,000 Mg Tablet 1,000 Mg PO BIDAC 06/12/14 Reported Fish Oil ([place]-3 Fatty Acids) 300 Mg Capsule 300 Mg PO 06/12/14 Reported Multi-Day Vitamins (Multivitamin) 1 Each Tablet 1 Cap PO DAILY 06/12/14 Reported Alprazolam 0.5 Mg Tablet 1 Tab PO BID PRN 06/12/14 Reported Gabapentin 300 Mg Capsule 900 Mg PO BID 06/12/14 Reported Metoprolol Tartrate 100 Mg Tablet 1 Tab PO BID 06/12/14 Reported Impression . 1. Abnormal CT chest with plate-like atelectasis right lower lobe and a tiny 4 mm nodule in the left lower lobe. The nodule can be followed up in 6 months due to her history of tobacco use for 40+ years. 2. FEVER PER ID 3. Mild nocturnal hypoxia, 4. Moderate protein-calorie malnutrition. 5. POSSIBLE PARKINSONISM Plan . D/C HOME FOLLOW UP IN OFFICE REPEAT CT CHEST 6 MONTHS AWAIS HERNANDEZ MD Jun 23, 2018 09:06
[2018-06-23 09:14] LABS: BASO % 0 % (0-3); EOS # 0.3 x10^3/uL (0.0-0.7); EOS % 4 % (0-3); HEMATOCRIT 30.9 % (36.0-47.0); HEMOGLOBIN 10.3 g/dL (12.0-15.5); LYMPH # 1.1 x10^3/uL (1.0-4.8); LYMPH % 16 % (24-48); MEAN CORPUSCULAR HEMOGLOBIN 28 pg (25-35); MEAN CORPUSCULAR HGB CONC 33 g/dL (31-37); MEAN CORPUSCULAR VOLUME 83 fL (79-100); MONO # 0.6 x10^3/uL (0.0-1.1); MONO % 9 % (0-9); NEUT # 4.8 x10^3uL (1.8-7.7); NEUT % 71 % (31-73); PLATELET COUNT 152 x10^3/uL (140-400); RED BLOOD COUNT 3.72 x10^6/uL (3.50-5.40); RED CELL DISTRIBUTION WIDTH 18.4 % (11.5-14.5); WHITE BLOOD COUNT 6.8 x10^3/uL (4.0-11.0)
[2018-06-23 09:24] LABS: ALBUMIN 2.5 g/dL (3.4-5.0); ALBUMIN/GLOBULIN RATIO 0.7 (1.0-1.7); GFR 57.1; MAGNESIUM 2.2 mg/dL (1.8-2.4); POTASSIUM 4.5 mmol/L (3.5-5.1); TOTAL BILIRUBIN 0.4 mg/dL (0.2-1.0); TOTAL PROTEIN 6.1 g/dL (6.4-8.2)
--- NOTE | 2018-06-23 09:54 | PDOC ---
PROGRESS NOTES Assessment Problems Medical Problems: (1) Acute renal insufficiency Status: Acute (2) Elevated lactic acid level Status: Acute (3) Fever Status: Acute (4) Rash Status: Acute (5) Severe sepsis Status: Acute (6) Weakness Status: Acute Evidence of Parkinson's disease, she says that she has been trying to hide her tremor Frequent falls x 6 times recently, may be due to parkinsonism, no evidence of stroke, central or peripheral vestibular dysfunction, cervical myelopathy, or other cause. She does have diabetic peripheral neuropathy which contributes Confusional episodes, evaluate for seizure, EEG was negative Checked with patient, she does not have a seizure disorder, she takes the Tegretol for her neuropathy. Plan Okay for discharge Continue carbidopa/levodopa and discussed side effects Treat medical diseases. Patient refuses assisted, cannot afford home health or outpatient physical therapy Follow up with me in 6 weeks Subjective Does not think she has Parkinson's, says she can suppress her tremor, but I did explain that I'm hoping the treatment will help with her gait disorder as well Objective Vital Signs Date Time Temp Pulse Resp B/P (MAP) Pulse Ox O2 Delivery O2 Flow Rate FiO2 06/23/18 08:54 87 156/75 06/23/18 07:23 90 Room Air 06/23/18 07:00 97.9 16 97.9 06/23/18 03:00 2.0 Intake and Output 06/23/18 07:00 Intake Total 1480 ml Balance 1480 ml Intake Oral 480 ml IV Total 1000 ml # Voids 6 # Bowel Movements 2 PHYSICAL EXAM Alert. Oriented to time, place and person. PERRL. EOMI. CN: no focal findings. Muscle tone: no cogwheeling on the left, normal on right Muscle strength: 4/5 No tremor DTR: 1+ Plantar reflex: flexor Gait: Improved from yesterday Sensory exam: stocking loss. No cerebellar signs elicited. Review of Relevant I have reviewed the following items garcia (where applicable) has been applied. Labs Laboratory Tests Test 06/21/18 11:38 06/21/18 17:08 06/21/18 20:33 06/22/18 05:05 Glucose (Fingerstick) 178 mg/dL (70-99) 155 mg/dL (70-99) 186 mg/dL (70-99) White Blood Count 6.8 x10^3/uL (4.0-11.0) Red Blood Count 3.99 x10^6/uL (3.50-5.40) Hemoglobin 11.1 g/dL (12.0-15.5) Hematocrit 33.1 % (36.0-47.0) Mean Corpuscular Volume 83 fL (79-100) Mean Corpuscular Hemoglobin 28 pg (25-35) Mean Corpuscular Hemoglobin Concent 34 g/dL (31-37) Red Cell Distribution Width 17.4 % (11.5-14.5) Platelet Count 140 x10^3/uL (140-400) Neutrophils (%) (Auto) 69 % (31-73) Lymphocytes (%) (Auto) 20 % (24-48) Monocytes (%) (Auto) 8 % (0-9) Eosinophils (%) (Auto) 3 % (0-3) Basophils (%) (Auto) 0 % (0-3) Neutrophils # (Auto) 4.7 x10^3uL (1.8-7.7) Lymphocytes # (Auto) 1.4 x10^3/uL (1.0-4.8) Monocytes # (Auto) 0.5 x10^3/uL (0.0-1.1) Eosinophils # (Auto) 0.2 x10^3/uL (0.0-0.7) Basophils # (Auto) 0.0 x10^3/uL (0.0-0.2) Sodium Level 136 mmol/L (136-145) Potassium Level 3.6 mmol/L (3.5-5.1) Chloride Level 102 mmol/L (98-107) Carbon Dioxide Level 23 mmol/L (21-32) Anion Gap 11 (6-14) Blood Urea Nitrogen 15 mg/dL (7-20) Creatinine 1.0 mg/dL (0.6-1.0) Estimated GFR (Cockcroft-Gault) 57.1 Glucose Level 111 mg/dL (70-99) Calcium Level 8.6 mg/dL (8.5-10.1) Test 06/22/18 07:54 06/22/18 11:20 06/22/18 16:10 06/22/18 20:38 Glucose (Fingerstick) 111 mg/dL (70-99) 154 mg/dL (70-99) 165 mg/dL (70-99) 180 mg/dL (70-99) Test 06/23/18 08:45 White Blood Count 6.8 x10^3/uL (4.0-11.0) Red Blood Count 3.72 x10^6/uL (3.50-5.40) Hemoglobin 10.3 g/dL (12.0-15.5) Hematocrit 30.9 % (36.0-47.0) Mean Corpuscular Volume 83 fL (79-100) Mean Corpuscular Hemoglobin 28 pg (25-35) Mean Corpuscular Hemoglobin Concent 33 g/dL (31-37) Red Cell Distribution Width 18.4 % (11.5-14.5) Platelet Count 152 x10^3/uL (140-400) Neutrophils (%) (Auto) 71 % (31-73) Lymphocytes (%) (Auto) 16 % (24-48) Monocytes (%) (Auto) 9 % (0-9) Eosinophils (%) (Auto) 4 % (0-3) Basophils (%) (Auto) 0 % (0-3) Neutrophils # (Auto) 4.8 x10^3uL (1.8-7.7) Lymphocytes # (Auto) 1.1 x10^3/uL (1.0-4.8) Monocytes # (Auto) 0.6 x10^3/uL (0.0-1.1) Eosinophils # (Auto) 0.3 x10^3/uL (0.0-0.7) Basophils # (Auto) 0.0 x10^3/uL (0.0-0.2) Sodium Level 137 mmol/L (136-145) Potassium Level 4.5 mmol/L (3.5-5.1) Chloride Level 104 mmol/L (98-107) Carbon Dioxide Level 26 mmol/L (21-32) Anion Gap 7 (6-14) Blood Urea Nitrogen 13 mg/dL (7-20) Creatinine 1.0 mg/dL (0.6-1.0) Estimated GFR (Cockcroft-Gault) 57.1 BUN/Creatinine Ratio 13 (6-20) Glucose Level 221 mg/dL (70-99) Calcium Level 8.0 mg/dL (8.5-10.1) Magnesium Level 2.2 mg/dL (1.8-2.4) Total Bilirubin 0.4 mg/dL (0.2-1.0) Aspartate Amino Transf (AST/SGOT) 41 U/L (15-37) Alanine Aminotransferase (ALT/SGPT) 11 U/L (14-59) Alkaline Phosphatase 78 U/L (46-116) Ammonia 16 mcmol/L (11-34) Total Protein 6.1 g/dL (6.4-8.2) Albumin 2.5 g/dL (3.4-5.0) Albumin/Globulin Ratio 0.7 (1.0-1.7) Thyroid Stimulating Hormone (TSH) 2.050 uIU/mL (0.358-3.74) Laboratory Tests Test 06/22/18 11:20 06/22/18 16:10 06/22/18 20:38 06/23/18 08:45 Glucose (Fingerstick) 154 mg/dL (70-99) 165 mg/dL (70-99) 180 mg/dL (70-99) White Blood Count 6.8 x10^3/uL (4.0-11.0) Red Blood Count 3.72 x10^6/uL (3.50-5.40) Hemoglobin 10.3 g/dL (12.0-15.5) Hematocrit 30.9 % (36.0-47.0) Mean Corpuscular Volume 83 fL (79-100) Mean Corpuscular Hemoglobin 28 pg (25-35) Mean Corpuscular Hemoglobin Concent 33 g/dL (31-37) Red Cell Distribution Width 18.4 % (11.5-14.5) Platelet Count 152 x10^3/uL (140-400) Neutrophils (%) (Auto) 71 % (31-73) Lymphocytes (%) (Auto) 16 % (24-48) Monocytes (%) (Auto) 9 % (0-9) Eosinophils (%) (Auto) 4 % (0-3) Basophils (%) (Auto) 0 % (0-3) Neutrophils # (Auto) 4.8 x10^3uL (1.8-7.7) Lymphocytes # (Auto) 1.1 x10^3/uL (1.0-4.8) Monocytes # (Auto) 0.6 x10^3/uL (0.0-1.1) Eosinophils # (Auto) 0.3 x10^3/uL (0.0-0.7) Basophils # (Auto) 0.0 x10^3/uL (0.0-0.2) Sodium Level 137 mmol/L (136-145) Potassium Level 4.5 mmol/L (3.5-5.1) Chloride Level 104 mmol/L (98-107) Carbon Dioxide Level 26 mmol/L (21-32) Anion Gap 7 (6-14) Blood Urea Nitrogen 13 mg/dL (7-20) Creatinine 1.0 mg/dL (0.6-1.0) Estimated GFR (Cockcroft-Gault) 57.1 BUN/Creatinine Ratio 13 (6-20) Glucose Level 221 mg/dL (70-99) Calcium Level 8.0 mg/dL (8.5-10.1) Magnesium Level 2.2 mg/dL (1.8-2.4) Total Bilirubin 0.4 mg/dL (0.2-1.0) Aspartate Amino Transf (AST/SGOT) 41 U/L (15-37) Alanine Aminotransferase (ALT/SGPT) 11 U/L (14-59) Alkaline Phosphatase 78 U/L (46-116) Ammonia 16 mcmol/L (11-34) Total Protein 6.1 g/dL (6.4-8.2) Albumin 2.5 g/dL (3.4-5.0) Albumin/Globulin Ratio 0.7 (1.0-1.7) Thyroid Stimulating Hormone (TSH) 2.050 uIU/mL (0.358-3.74) Microbiology 06/21/18 Blood Culture - Preliminary, Resulted NO GROWTH AFTER 1 DAY Medications Current Medications Acetaminophen (Tylenol) 650 mg 1X ONCE PO Last administered on 06/20/18at 18:47 ; Start 06/20/18 at 18:15; Stop 06/20/18 at 18:20; Status DC Sodium Chloride 1,000 ml @ 1,000 mls/hr 1X ONCE IV Last administered on at 18:46; Start 06/20/18 at 18:15; Stop 06/20/18 at 19:14; Status DC Sodium Chloride 1,000 ml @ 1,000 mls/hr 1X ONCE IV Last administered on at 18:48; Start 06/20/18 at 18:15; Stop 06/20/18 at 19:14; Status DC Sodium Chloride 500 ml @ 500 mls/hr 1X ONCE IV Last administered on at 18:49; Start 06/20/18 at 18:15; Stop 06/20/18 at 19:14; Status DC Lorazepam (Ativan) 0.5 mg 1X ONCE IV Last administered on 06/20/18at 18:47; Start 06/20/18 at 18:45; Stop 06/20/18 at 18:46; Status DC Piperacillin Sod/ Tazobactam Sod 4.5 gm/Sodium Chloride 100 ml @ 200 mls/hr 1X ONCE IV Last administered on 06/20/18at 20:15; Start 06/20/18 at 19:15; Stop 06/20/18 at 19:44; Status DC Ondansetron HCl (Zofran) 4 mg PRN Q8HRS PRN IV NAUSEA/VOMITING; Start 06/20/18 at 21:45; Stop 06/21/18 at 21:44; Status DC Amlodipine Besylate (Norvasc) 10 mg DAILY PO Last administered on 06/21/18at 09: 49; Start 06/21/18 at 09:00; Stop 06/21/18 at 14:19; Status DC Bisacodyl (Dulcolax Supp) 20 mg PRN Q6HRS PRN RC CONSTIPATION; Start 06/20/18 at 23:15 Bisacodyl (Dulcolax Tab) 10 mg Q6HRS PO Last administered on 06/23/18at 05:46; Start 06/21/18 at 00:00 Carbamazepine (TEGretol) 200 mg BID PO Last administered on 06/23/18 08:53; Start 06/21/18 at 09:00 Glyburide (Diabeta) 10 mg BIDWMEALS PO Last administered on 06/23/18 08:53; Start 06/21/18 at 08:00 Losartan Potassium (Cozaar) 50 mg DAILY PO Last administered on 06/23/18at 08:53 ; Start 06/21/18 at 09:00 Simvastatin (Zocor) 10 mg QHS PO Last administered on 06/22/18 20:48; Start at 21:00 Trimethoprim/ Sulfamethoxazole (Bactrim Ds) 1 tab BID PO ; Start 06/21/18 at 09: 00; Stop 06/21/18 at 09:00; Status DC Gabapentin (Neurontin) 900 mg BID PO Last administered on 06/23/18 08:54; Start 06/21/18 at 09:00 Magnesium Citrate (Citroma) 296 ml DAILY PO Last administered on 06/22/18at 09: 13; Start 06/21/18 at 09:00 Metformin HCl (Glucophage) 1,000 mg BIDWMEALS PO Last administered on 08:53; Start 06/21/18 at 08:00 Metoprolol Tartrate (Lopressor) 100 mg BID PO Last administered on 06/23/18 08 :54; Start 06/21/18 at 09:00 Multivitamins (Thera M Plus) 1 tab DAILY PO Last administered on 06/23/18 08: 53; Start 06/21/18 at 09:00 Nortriptyline HCl (Pamelor) 150 mg HS PO Last administered on 06/22/18 20:47; Start 06/21/18 at 21:00 Non-Formulary Medication (Tiotropium [place] (Spiriva)) 1 cap DAILY IH ; Start 06/21/18 at 09:00; Status UNV Insulin Human Lispro (HumaLOG) 0-9 UNITS TIDWMEALS SQ Last administered on 06/22 17:08; Start 06/21/18 at 08:00 Dextrose (Dextrose 50%-Water Syringe) 12.5 gm PRN Q15MIN PRN IV SEE COMMENTS; Start 06/20/18 at 23:15 Insulin Glargine (Lantus) 12 units QHS SQ Last administered on 06/22/18 20:55 ; Start 06/20/18 at 23:15 Acetaminophen (Tylenol) 650 mg PRN Q6HRS PRN PO fever Last administered on 06/22 20:48; Start 06/20/18 at 23:30 Sodium Chloride 1,000 ml @ 100 mls/hr Q10H IV Last administered on 06/22/18 17:01; Start 06/20/18 at 23:30 Sodium Chloride 1,000 ml @ 1,000 mls/hr 1X ONCE IV Last administered on at 23:44; Start 06/20/18 at 23:30; Stop 06/21/18 at 00:29; Status DC Piperacillin Sod/ Tazobactam Sod (Zosyn Per Pharmacy) 1 each PRN DAILY PRN MC SEE COMMENTS; Start 06/20/18 at 23:30; Stop 06/21/18 at 11:48; Status DC Insulin Human Lispro (HumaLOG) 12 units 1X ONCE SQ Last administered on at 23:54; Start 06/20/18 at 23:45; Stop 06/20/18 at 23:46; Status DC Piperacillin Sod/ Tazobactam Sod 3.375 gm/Sodium Chloride 50 ml @ 100 mls/hr Q6HRS IV Last administered on 06/21/18at 06:08; Start 06/21/18 at 00:00; Stop at 10:28; Status DC Albuterol/ Ipratropium (Duoneb) 3 ml RTQID NEB Last administered on 06/23/18at 07:21; Start 06/21/18 at 08:00 Sodium Chloride 500 ml @ 500 mls/hr 1X ONCE IV Last administered on at 02:45; Start 06/21/18 at 02:45; Stop 06/21/18 at 03:44; Status DC Info (Do NOT chart on this placeholder) 1 each 1X ONCE MC ; Start 06/21/18 at 03:00; Stop 06/21/18 at 03:01; Status UNV Influenza Virus Vaccine (Afluria Trivalent [id number] Syringe) 0.5 ml ONCE ONCE VAX IM Last administered on 06/21/18at 11:47; Start 06/21/18 at 09:00; Stop at 09:01; Status DC Cefepime HCl 1 gm/ Dextrose 50 ml @ 100 mls/hr Q8HRS IV ; Start 06/21/18 at 14: 00; Status UNV Cefepime HCl (Maxipime) 1 gm Q8HRS IVP Last administered on 06/23/18at 05:46; Start 06/21/18 at 11:00 Lactobacillus Rhamnosus (Culturelle) 1 cap BID PO Last administered on at 20:49; Start 06/21/18 at 21:00 Diphenhydramine HCl (Benadryl) 25 mg PRN Q6HRS PRN IVP ITCHING Last administered on 06/23/18at 05:50; Start 06/21/18 at 18:45 Carbidopa/Levodopa (Sinemet 25/100) 1 tab TIDAC PO Last administered on at 05:46; Start 06/22/18 at 11:30 Lactulose (Lactulose) 20 gm DAILY08 PO ; Start 06/22/18 at 18:00 Active Scripts Active Orphenadrine Citrate 100 Mg Tablet.er 1 Tab PO BID PRN Bactrim Ds Tablet (Sulfamethoxazole/Trimethoprim) 1 Each Tablet 1 Tab PO BID 10 Days Biscolax (Bisacodyl) 10 Mg Supp.rect 20 Mg RC Q6HRS PRN Dulcolax (Bisacodyl) 5 Mg Tablet.dr 2 Tab PO Q6HRS Magnesium Citrate 296 Ml Solution 296 Ml PO DAILY 3 Days Cozaar (Losartan Potassium) 50 Mg Tablet 50 Mg PO DAILY Simvastatin 10 Mg Tablet 10 Mg PO QHS Amlodipine Besylate 10 Mg Tablet 10 Mg PO DAILY Reported [Anti-depression] [Biotin] PO DAILY Carbamazepine 200 Mg Tablet 200 Mg PO BID Nortriptyline Hcl 75 Mg Capsule 150 Mg PO HS Spiriva (Tiotropium [place]) 18 Mcg Cap.w.dev 1 Cap IH DAILY Metformin Hcl 1,000 Mg Tablet 1,000 Mg PO BIDAC Fish Oil ([place]-3 Fatty Acids) 300 Mg Capsule 300 Mg PO Multi-Day Vitamins (Multivitamin) 1 Each Tablet 1 Cap PO DAILY Alprazolam 0.5 Mg Tablet 1 Tab PO BID PRN Gabapentin 300 Mg Capsule 900 Mg PO BID Metoprolol Tartrate 100 Mg Tablet 1 Tab PO BID Vitals/I & O Vital Sign - Last 24 Hours 06/22/18 06/22/18 06/22/18 06/22/18 11:00 11:27 15:00 19:00 Temp 98.2 98.2 98.5 98.2 98.2 98.5 Pulse 81 81 94 Resp 18 18 18 B/P (MAP) 115/63 (80) 118/65 (82) 128/68 (88) Pulse Ox 95 94 100 95 O2 Delivery Room Air Nasal Cannula Nasal Cannula Nasal Cannula O2 Flow Rate 2.0 2.0 2.0 06/22/18 06/22/18 06/22/18 06/22/18 20:00 20:34 20:50 23:00 Temp 99.0 99.0 Pulse 94 71 Resp 18 B/P (MAP) 128/68 125/60 (81) Pulse Ox 91 O2 Delivery Room Air Nasal Cannula Nasal Cannula O2 Flow Rate 2.0 2.0 06/23/18 06/23/18 06/23/18 06/23/18 03:00 07:00 07:05 07:23 Temp 97.9 97.9 97.9 97.9 Pulse 72 87 Resp 18 16 B/P (MAP) 119/67 (84) 156/75 (102) Pulse Ox 94 94 90 O2 Delivery Nasal Cannula Room Air Room Air Room Air O2 Flow Rate 2.0 06/23/18 06/23/18 08:53 08:54 Pulse 87 87 B/P (MAP) 156/75 156/75 Intake and Output 06/22/18 06/22/18 06/23/18 15:00 23:00 07:00 Intake Total 1480 ml Balance 1480 ml BAR KIRKLAND MD Jun 23, 2018 09:54
--- NOTE | 2018-06-23 09:58 | PDOC ---
PROGRESS NOTES Chief Complaint Chief Complaint acute metabolic encephalopathy sepsis, sepsis syndrome, UTI, bronchitis Dm2, poor control on admit seizure h/o , on tegretol fall maybe from seizure, might now be post-ictal or unsteady gait fall, concussion, CT head OK SELVIN, vasomotr frequent falls dm2 on insulin HTN copd acute hypoxic resp failure hepatosplenomegaly hepatic steatosis. Parkinson's disease begin cefpodoxime for 5 days plan: lactulose doppler hepatic vein start sinemet fu with id, pulm, cont most home meds, hold amlodipine, still on metoprolol, losartan insulin, ssi cefepime as per ID pt wants go home, given she had high fever, + US, required NC 2L wo home o2, frequent falls in the past 2 weeks, likely sec to Parkinson's. discussed with pt and nurse. History of Present Illness History of Present Illness ROS: n [place], sob or chest pain no home o2, now on NC 2l t 102 PT WANTS go home , refused request based on encephalopathy add lactulose Vitals Vitals Vital Signs Date Time Temp Pulse Resp B/P (MAP) Pulse Ox O2 Delivery O2 Flow Rate FiO2 06/23/18 08:54 87 156/75 06/23/18 07:23 90 Room Air 06/23/18 07:00 97.9 16 97.9 06/23/18 03:00 2.0 Physical Exam Physical Exam GENERAL: Alert, NAD Has tremors in the hands -picking like motion particularly with left Pt is comfortable, sitting in bed, in no acute distress. HEENT: Normocephalic, atraumatic, anicteric. Moist, No thrush. No oral lesions. Oropharynx clear. No exudate. NECK: Supple. LUNGS: clear, no wheezing HEART: S1, S2.NO murmurs ABDOMEN: Soft, nontender, nondistended. BS+ EXTREMITIES: No edema, no cyanosis. DERMATOLOGIC: Superficial abrasion over the left knee. No effusion. No purulence. Generalized maculopapular rash all over face, neck, anterior chest, back, torso. No palm or sole involvement. No skin breakdown seen. No evidence of vesicles or fluid filled lesions. No evidence of secondary bacterial infection. NEUROLOGIC: Alert and oriented x 3. Grossly nonfocal. PSYCHIATRIC: Appropriate mood and affect, cooperative. MUSCULOSKELETAL: No joint effusion. No decrease in range of motion noted. General: Alert, Oriented X3, Cooperative, No acute distress, mild distress, Other Heart: Regular rate, Normal S1, Normal S2, No murmurs Lungs: Other Abdomen: Normal bowel sounds, Soft Extremities: No clubbing, No cyanosis, No edema, Normal pulses Skin: No breakdown, Other (rash on arms, legs symmetrical) Labs LABS Abdominal ultrasound, 06/22/2018: HISTORY: Hepatomegaly, hepatic encephalopathy The gallbladder is somewhat contracted. No gallstones are evident. The liver is enlarged measuring 22 cm in craniocaudad extent at the level the right lobe. It demonstrates mildly increased echogenicity suggesting fatty change. No hepatic mass or bile duct dilatation is evident. The pancreas and central retroperitoneum including the aorta and inferior vena cava were secured by overlying bowel. The spleen is at the upper limits of normal in size measuring 13 cm in craniocaudad extent. No renal abnormality is detected. No free fluid is evident in the abdomen. IMPRESSION: 1. Hepatomegaly with mildly increased hepatic echogenicity suggesting hepatic steatosis. 2. Borderline splenomegaly. 3. Obscuration of the pancreas and central retroperitoneum due to overlying bowel. Electronically signed by: Peña Ortez MD (06/23/2018 8:16 AM) [facility] Laboratory Tests Test 06/22/18 11:20 06/22/18 16:10 06/22/18 20:38 06/23/18 08:45 Glucose (Fingerstick) 154 mg/dL (70-99) 165 mg/dL (70-99) 180 mg/dL (70-99) White Blood Count 6.8 x10^3/uL (4.0-11.0) Red Blood Count 3.72 x10^6/uL (3.50-5.40) Hemoglobin 10.3 g/dL (12.0-15.5) Hematocrit 30.9 % (36.0-47.0) Mean Corpuscular Volume 83 fL (79-100) Mean Corpuscular Hemoglobin 28 pg (25-35) Mean Corpuscular Hemoglobin Concent 33 g/dL (31-37) Red Cell Distribution Width 18.4 % (11.5-14.5) Platelet Count 152 x10^3/uL (140-400) Neutrophils (%) (Auto) 71 % (31-73) Lymphocytes (%) (Auto) 16 % (24-48) Monocytes (%) (Auto) 9 % (0-9) Eosinophils (%) (Auto) 4 % (0-3) Basophils (%) (Auto) 0 % (0-3) Neutrophils # (Auto) 4.8 x10^3uL (1.8-7.7) Lymphocytes # (Auto) 1.1 x10^3/uL (1.0-4.8) Monocytes # (Auto) 0.6 x10^3/uL (0.0-1.1) Eosinophils # (Auto) 0.3 x10^3/uL (0.0-0.7) Basophils # (Auto) 0.0 x10^3/uL (0.0-0.2) Sodium Level 137 mmol/L (136-145) Potassium Level 4.5 mmol/L (3.5-5.1) Chloride Level 104 mmol/L (98-107) Carbon Dioxide Level 26 mmol/L (21-32) Anion Gap 7 (6-14) Blood Urea Nitrogen 13 mg/dL (7-20) Creatinine 1.0 mg/dL (0.6-1.0) Estimated GFR (Cockcroft-Gault) 57.1 BUN/Creatinine Ratio 13 (6-20) Glucose Level 221 mg/dL (70-99) Calcium Level 8.0 mg/dL (8.5-10.1) Magnesium Level 2.2 mg/dL (1.8-2.4) Total Bilirubin 0.4 mg/dL (0.2-1.0) Aspartate Amino Transf (AST/SGOT) 41 U/L (15-37) Alanine Aminotransferase (ALT/SGPT) 11 U/L (14-59) Alkaline Phosphatase 78 U/L (46-116) Ammonia 16 mcmol/L (11-34) Total Protein 6.1 g/dL (6.4-8.2) Albumin 2.5 g/dL (3.4-5.0) Albumin/Globulin Ratio 0.7 (1.0-1.7) Thyroid Stimulating Hormone (TSH) 2.050 uIU/mL (0.358-3.74) Assessment and Plan Assessmemt and Plan Problems Medical Problems: (1) Acute renal insufficiency Status: Acute (2) Elevated lactic acid level Status: Acute (3) Fever Status: Acute (4) Rash Status: Acute (5) Severe sepsis Status: Acute (6) Weakness Status: Acute Comment Review of Relevant I have reviewed the following items garcia (where applicable) has been applied. Labs Laboratory Tests Test 06/21/18 11:38 06/21/18 17:08 06/21/18 20:33 06/22/18 05:05 Glucose (Fingerstick) 178 mg/dL (70-99) 155 mg/dL (70-99) 186 mg/dL (70-99) White Blood Count 6.8 x10^3/uL (4.0-11.0) Red Blood Count 3.99 x10^6/uL (3.50-5.40) Hemoglobin 11.1 g/dL (12.0-15.5) Hematocrit 33.1 % (36.0-47.0) Mean Corpuscular Volume 83 fL (79-100) Mean Corpuscular Hemoglobin 28 pg (25-35) Mean Corpuscular Hemoglobin Concent 34 g/dL (31-37) Red Cell Distribution Width 17.4 % (11.5-14.5) Platelet Count 140 x10^3/uL (140-400) Neutrophils (%) (Auto) 69 % (31-73) Lymphocytes (%) (Auto) 20 % (24-48) Monocytes (%) (Auto) 8 % (0-9) Eosinophils (%) (Auto) 3 % (0-3) Basophils (%) (Auto) 0 % (0-3) Neutrophils # (Auto) 4.7 x10^3uL (1.8-7.7) Lymphocytes # (Auto) 1.4 x10^3/uL (1.0-4.8) Monocytes # (Auto) 0.5 x10^3/uL (0.0-1.1) Eosinophils # (Auto) 0.2 x10^3/uL (0.0-0.7) Basophils # (Auto) 0.0 x10^3/uL (0.0-0.2) Sodium Level 136 mmol/L (136-145) Potassium Level 3.6 mmol/L (3.5-5.1) Chloride Level 102 mmol/L (98-107) Carbon Dioxide Level 23 mmol/L (21-32) Anion Gap 11 (6-14) Blood Urea Nitrogen 15 mg/dL (7-20) Creatinine 1.0 mg/dL (0.6-1.0) Estimated GFR (Cockcroft-Gault) 57.1 Glucose Level 111 mg/dL (70-99) Calcium Level 8.6 mg/dL (8.5-10.1) Test 06/22/18 07:54 06/22/18 11:20 06/22/18 16:10 06/22/18 20:38 Glucose (Fingerstick) 111 mg/dL (70-99) 154 mg/dL (70-99) 165 mg/dL (70-99) 180 mg/dL (70-99) Test 06/23/18 08:45 White Blood Count 6.8 x10^3/uL (4.0-11.0) Red Blood Count 3.72 x10^6/uL (3.50-5.40) Hemoglobin 10.3 g/dL (12.0-15.5) Hematocrit 30.9 % (36.0-47.0) Mean Corpuscular Volume 83 fL (79-100) Mean Corpuscular Hemoglobin 28 pg (25-35) Mean Corpuscular Hemoglobin Concent 33 g/dL (31-37) Red Cell Distribution Width 18.4 % (11.5-14.5) Platelet Count 152 x10^3/uL (140-400) Neutrophils (%) (Auto) 71 % (31-73) Lymphocytes (%) (Auto) 16 % (24-48) Monocytes (%) (Auto) 9 % (0-9) Eosinophils (%) (Auto) 4 % (0-3) Basophils (%) (Auto) 0 % (0-3) Neutrophils # (Auto) 4.8 x10^3uL (1.8-7.7) Lymphocytes # (Auto) 1.1 x10^3/uL (1.0-4.8) Monocytes # (Auto) 0.6 x10^3/uL (0.0-1.1) Eosinophils # (Auto) 0.3 x10^3/uL (0.0-0.7) Basophils # (Auto) 0.0 x10^3/uL (0.0-0.2) Sodium Level 137 mmol/L (136-145) Potassium Level 4.5 mmol/L (3.5-5.1) Chloride Level 104 mmol/L (98-107) Carbon Dioxide Level 26 mmol/L (21-32) Anion Gap 7 (6-14) Blood Urea Nitrogen 13 mg/dL (7-20) Creatinine 1.0 mg/dL (0.6-1.0) Estimated GFR (Cockcroft-Gault) 57.1 BUN/Creatinine Ratio 13 (6-20) Glucose Level 221 mg/dL (70-99) Calcium Level 8.0 mg/dL (8.5-10.1) Magnesium Level 2.2 mg/dL (1.8-2.4) Total Bilirubin 0.4 mg/dL (0.2-1.0) Aspartate Amino Transf (AST/SGOT) 41 U/L (15-37) Alanine Aminotransferase (ALT/SGPT) 11 U/L (14-59) Alkaline Phosphatase 78 U/L (46-116) Ammonia 16 mcmol/L (11-34) Total Protein 6.1 g/dL (6.4-8.2) Albumin 2.5 g/dL (3.4-5.0) Albumin/Globulin Ratio 0.7 (1.0-1.7) Thyroid Stimulating Hormone (TSH) 2.050 uIU/mL (0.358-3.74) Laboratory Tests Test 06/22/18 11:20 06/22/18 16:10 06/22/18 20:38 06/23/18 08:45 Glucose (Fingerstick) 154 mg/dL (70-99) 165 mg/dL (70-99) 180 mg/dL (70-99) White Blood Count 6.8 x10^3/uL (4.0-11.0) Red Blood Count 3.72 x10^6/uL (3.50-5.40) Hemoglobin 10.3 g/dL (12.0-15.5) Hematocrit 30.9 % (36.0-47.0) Mean Corpuscular Volume 83 fL (79-100) Mean Corpuscular Hemoglobin 28 pg (25-35) Mean Corpuscular Hemoglobin Concent 33 g/dL (31-37) Red Cell Distribution Width 18.4 % (11.5-14.5) Platelet Count 152 x10^3/uL (140-400) Neutrophils (%) (Auto) 71 % (31-73) Lymphocytes (%) (Auto) 16 % (24-48) Monocytes (%) (Auto) 9 % (0-9) Eosinophils (%) (Auto) 4 % (0-3) Basophils (%) (Auto) 0 % (0-3) Neutrophils # (Auto) 4.8 x10^3uL (1.8-7.7) Lymphocytes # (Auto) 1.1 x10^3/uL (1.0-4.8) Monocytes # (Auto) 0.6 x10^3/uL (0.0-1.1) Eosinophils # (Auto) 0.3 x10^3/uL (0.0-0.7) Basophils # (Auto) 0.0 x10^3/uL (0.0-0.2) Sodium Level 137 mmol/L (136-145) Potassium Level 4.5 mmol/L (3.5-5.1) Chloride Level 104 mmol/L (98-107) Carbon Dioxide Level 26 mmol/L (21-32) Anion Gap 7 (6-14) Blood Urea Nitrogen 13 mg/dL (7-20) Creatinine 1.0 mg/dL (0.6-1.0) Estimated GFR (Cockcroft-Gault) 57.1 BUN/Creatinine Ratio 13 (6-20) Glucose Level 221 mg/dL (70-99) Calcium Level 8.0 mg/dL (8.5-10.1) Magnesium Level 2.2 mg/dL (1.8-2.4) Total Bilirubin 0.4 mg/dL (0.2-1.0) Aspartate Amino Transf (AST/SGOT) 41 U/L (15-37) Alanine Aminotransferase (ALT/SGPT) 11 U/L (14-59) Alkaline Phosphatase 78 U/L (46-116) Ammonia 16 mcmol/L (11-34) Total Protein 6.1 g/dL (6.4-8.2) Albumin 2.5 g/dL (3.4-5.0) Albumin/Globulin Ratio 0.7 (1.0-1.7) Thyroid Stimulating Hormone (TSH) 2.050 uIU/mL (0.358-3.74) Microbiology 06/21/18 Blood Culture - Preliminary, Resulted NO GROWTH AFTER 1 DAY Medications Current Medications Acetaminophen (Tylenol) 650 mg 1X ONCE PO Last administered on 06/20/18at 18:47 ; Start 06/20/18 at 18:15; Stop 06/20/18 at 18:20; Status DC Sodium Chloride 1,000 ml @ 1,000 mls/hr 1X ONCE IV Last administered on at 18:46; Start 06/20/18 at 18:15; Stop 06/20/18 at 19:14; Status DC Sodium Chloride 1,000 ml @ 1,000 mls/hr 1X ONCE IV Last administered on at 18:48; Start 06/20/18 at 18:15; Stop 06/20/18 at 19:14; Status DC Sodium Chloride 500 ml @ 500 mls/hr 1X ONCE IV Last administered on at 18:49; Start 06/20/18 at 18:15; Stop 06/20/18 at 19:14; Status DC Lorazepam (Ativan) 0.5 mg 1X ONCE IV Last administered on 06/20/18at 18:47; Start 06/20/18 at 18:45; Stop 06/20/18 at 18:46; Status DC Piperacillin Sod/ Tazobactam Sod 4.5 gm/Sodium Chloride 100 ml @ 200 mls/hr 1X ONCE IV Last administered on 06/20/18at 20:15; Start 06/20/18 at 19:15; Stop 06/20/18 at 19:44; Status DC Ondansetron HCl (Zofran) 4 mg PRN Q8HRS PRN IV NAUSEA/VOMITING; Start 06/20/18 at 21:45; Stop 06/21/18 at 21:44; Status DC Amlodipine Besylate (Norvasc) 10 mg DAILY PO Last administered on 06/21/18at 09: 49; Start 06/21/18 at 09:00; Stop 06/21/18 at 14:19; Status DC Bisacodyl (Dulcolax Supp) 20 mg PRN Q6HRS PRN RC CONSTIPATION; Start 06/20/18 at 23:15 Bisacodyl (Dulcolax Tab) 10 mg Q6HRS PO Last administered on 06/23/18at 05:46; Start 06/21/18 at 00:00 Carbamazepine (TEGretol) 200 mg BID PO Last administered on 06/23/18 08:53; Start 06/21/18 at 09:00 Glyburide (Diabeta) 10 mg BIDWMEALS PO Last administered on 06/23/18 08:53; Start 06/21/18 at 08:00 Losartan Potassium (Cozaar) 50 mg DAILY PO Last administered on 06/23/18 08:53 ; Start 06/21/18 at 09:00 Simvastatin (Zocor) 10 mg QHS PO Last administered on 06/22/18at 20:48; Start at 21:00 Trimethoprim/ Sulfamethoxazole (Bactrim Ds) 1 tab BID PO ; Start 06/21/18 at 09: 00; Stop 06/21/18 at 09:00; Status DC Gabapentin (Neurontin) 900 mg BID PO Last administered on 06/23/18at 08:54; Start 06/21/18 at 09:00 Magnesium Citrate (Citroma) 296 ml DAILY PO Last administered on 06/22/18at 09: 13; Start 06/21/18 at 09:00 Metformin HCl (Glucophage) 1,000 mg BIDWMEALS PO Last administered on 08:53; Start 06/21/18 at 08:00 Metoprolol Tartrate (Lopressor) 100 mg BID PO Last administered on 06/23/18 08 :54; Start 06/21/18 at 09:00 Multivitamins (Thera M Plus) 1 tab DAILY PO Last administered on 06/23/18 08: 53; Start 06/21/18 at 09:00 Nortriptyline HCl (Pamelor) 150 mg HS PO Last administered on 06/22/18at 20:47; Start 06/21/18 at 21:00 Non-Formulary Medication (Tiotropium [place] (Spiriva)) 1 cap DAILY IH ; Start 06/21/18 at 09:00; Status UNV Insulin Human Lispro (HumaLOG) 0-9 UNITS TIDWMEALS SQ Last administered on 06/22at 17:08; Start 06/21/18 at 08:00 Dextrose (Dextrose 50%-Water Syringe) 12.5 gm PRN Q15MIN PRN IV SEE COMMENTS; Start 06/20/18 at 23:15 Insulin Glargine (Lantus) 12 units QHS SQ Last administered on 06/22/18at 20:55 ; Start 06/20/18 at 23:15 Acetaminophen (Tylenol) 650 mg PRN Q6HRS PRN PO fever Last administered on 06/22at 20:48; Start 06/20/18 at 23:30 Sodium Chloride 1,000 ml @ 100 mls/hr Q10H IV Last administered on 06/22/18at 17:01; Start 06/20/18 at 23:30 Sodium Chloride 1,000 ml @ 1,000 mls/hr 1X ONCE IV Last administered on at 23:44; Start 06/20/18 at 23:30; Stop 06/21/18 at 00:29; Status DC Piperacillin Sod/ Tazobactam Sod (Zosyn Per Pharmacy) 1 each PRN DAILY PRN MC SEE COMMENTS; Start 06/20/18 at 23:30; Stop 06/21/18 at 11:48; Status DC Insulin Human Lispro (HumaLOG) 12 units 1X ONCE SQ Last administered on at 23:54; Start 06/20/18 at 23:45; Stop 06/20/18 at 23:46; Status DC Piperacillin Sod/ Tazobactam Sod 3.375 gm/Sodium Chloride 50 ml @ 100 mls/hr Q6HRS IV Last administered on 06/21/18at 06:08; Start 06/21/18 at 00:00; Stop at 10:28; Status DC Albuterol/ Ipratropium (Duoneb) 3 ml RTQID NEB Last administered on 06/23/18at 07:21; Start 06/21/18 at 08:00 Sodium Chloride 500 ml @ 500 mls/hr 1X ONCE IV Last administered on at 02:45; Start 06/21/18 at 02:45; Stop 06/21/18 at 03:44; Status DC Info (Do NOT chart on this placeholder) 1 each 1X ONCE MC ; Start 06/21/18 at 03:00; Stop 06/21/18 at 03:01; Status UNV Influenza Virus Vaccine (Afluria Trivalent [id number] Syringe) 0.5 ml ONCE ONCE VAX IM Last administered on 06/21/18at 11:47; Start 06/21/18 at 09:00; Stop at 09:01; Status DC Cefepime HCl 1 gm/ Dextrose 50 ml @ 100 mls/hr Q8HRS IV ; Start 06/21/18 at 14: 00; Status UNV Cefepime HCl (Maxipime) 1 gm Q8HRS IVP Last administered on 06/23/18at 05:46; Start 06/21/18 at 11:00 Lactobacillus Rhamnosus (Culturelle) 1 cap BID PO Last administered on at 20:49; Start 06/21/18 at 21:00 Diphenhydramine HCl (Benadryl) 25 mg PRN Q6HRS PRN IVP ITCHING Last administered on 06/23/18at 05:50; Start 06/21/18 at 18:45 Carbidopa/Levodopa (Sinemet 25/100) 1 tab TIDAC PO Last administered on at 05:46; Start 06/22/18 at 11:30 Lactulose (Lactulose) 20 gm DAILY08 PO ; Start 06/22/18 at 18:00 Active Scripts Active Orphenadrine Citrate 100 Mg Tablet.er 1 Tab PO BID PRN Bactrim Ds Tablet (Sulfamethoxazole/Trimethoprim) 1 Each Tablet 1 Tab PO BID 10 Days Biscolax (Bisacodyl) 10 Mg Supp.rect 20 Mg RC Q6HRS PRN Dulcolax (Bisacodyl) 5 Mg Tablet.dr 2 Tab PO Q6HRS Magnesium Citrate 296 Ml Solution 296 Ml PO DAILY 3 Days Cozaar (Losartan Potassium) 50 Mg Tablet 50 Mg PO DAILY Simvastatin 10 Mg Tablet 10 Mg PO QHS Amlodipine Besylate 10 Mg Tablet 10 Mg PO DAILY Reported [Anti-depression] [Biotin] PO DAILY Carbamazepine 200 Mg Tablet 200 Mg PO BID Nortriptyline Hcl 75 Mg Capsule 150 Mg PO HS Spiriva (Tiotropium [place]) 18 Mcg Cap.w.dev 1 Cap IH DAILY Metformin Hcl 1,000 Mg Tablet 1,000 Mg PO BIDAC Fish Oil ([place]-3 Fatty Acids) 300 Mg Capsule 300 Mg PO Multi-Day Vitamins (Multivitamin) 1 Each Tablet 1 Cap PO DAILY Alprazolam 0.5 Mg Tablet 1 Tab PO BID PRN Gabapentin 300 Mg Capsule 900 Mg PO BID Metoprolol Tartrate 100 Mg Tablet 1 Tab PO BID Vitals/I & O Vital Sign - Last 24 Hours 06/22/18 06/22/18 06/22/18 06/22/18 11:00 11:27 15:00 19:00 Temp 98.2 98.2 98.5 98.2 98.2 98.5 Pulse 81 81 94 Resp 18 18 18 B/P (MAP) 115/63 (80) 118/65 (82) 128/68 (88) Pulse Ox 95 94 100 95 O2 Delivery Room Air Nasal Cannula Nasal Cannula Nasal Cannula O2 Flow Rate 2.0 2.0 2.0 06/22/18 06/22/18 06/22/18 06/22/18 20:00 20:34 20:50 23:00 Temp 99.0 99.0 Pulse 94 71 Resp 18 B/P (MAP) 128/68 125/60 (81) Pulse Ox 91 O2 Delivery Room Air Nasal Cannula Nasal Cannula O2 Flow Rate 2.0 2.0 06/23/18 06/23/18 06/23/18 06/23/18 03:00 07:00 07:05 07:23 Temp 97.9 97.9 97.9 97.9 Pulse 72 87 Resp 18 16 B/P (MAP) 119/67 (84) 156/75 (102) Pulse Ox 94 94 90 O2 Delivery Nasal Cannula Room Air Room Air Room Air O2 Flow Rate 2.0 06/23/18 06/23/18 08:53 08:54 Pulse 87 87 B/P (MAP) 156/75 156/75 Intake and Output 06/22/18 06/22/18 06/23/18 15:00 23:00 07:00 Intake Total 1480 ml Balance 1480 ml LEONEL CAMPA MD Jun 23, 2018 09:58
--- NOTE | 2018-06-23 10:06 | PDOC2 ---
GI CONSULT Reason For Consult: Elevated ammonia/encephalopathy HPI: HPI: 57 y/o female admitted w/ recent fall, fever, rash, confusion, and UTI. On 06/21, had elevated ammonia level of 52 and GI asked to see for same. Ammonia is normal at 16 this morning. Other labs include Hgb 10.3, INR 1.2, plt 140, normal LFTs and lipase except AST 41. Tox screen was negative. Hepatosplenomegaly and moderate stool on CT, US suggestive of hepatic steatosis , and Doppler US unrevealing. EEG was normal. Tells me this morning she feels fine and would like to go home. H/o intermittent heartburn improved w/ Tums PRN, possibly had previous EGD "before heart surgery" (?LEOBARDO). No dysphagia, n/v, abd pain, constipation, hematochezia, melena, change in appetite or weight. Since admission has been stooling more w/ meds. No previous colonoscopy. No GB or pancreas history. H/o Hep C (thinks from tattoos) treated 15 years ago. Uses NSAIDs PRN, takes ASA 81mg QD. PMH: PMH: CAD, CHF, HTN, HLD, valvular disease, COPD, peripheral neuropathy, GERD, Hep C, anxiety, depression, DM, Parkinson's, CABG, FH: Family History: Cancer (mother - breast), CAD Social History: Smoke: Quit ALCOHOL: rare Drugs: None (quit marijuana) ROS: GEN: +fever HEENT: Denies blurred vision, sore throat CV: Denies chest pain RESP: h/o COPD - some SOA GI: Per HPI : +dysuria ENDO: Denies weight changes NEURO: Denies confusion, dizziness MSK: Denies weakness, joint pain/swelling SKIN: says rash is better Vitals: Vitals: Vital Signs Date Time Temp Pulse Resp B/P (MAP) Pulse Ox O2 Delivery O2 Flow Rate FiO2 06/23/18 08:54 87 156/75 06/23/18 07:23 90 Room Air 06/23/18 07:00 97.9 16 97.9 06/23/18 03:00 2.0 Labs: Labs: Laboratory Tests Test 06/22/18 11:20 06/22/18 16:10 06/22/18 20:38 06/23/18 08:45 Glucose (Fingerstick) 154 mg/dL (70-99) 165 mg/dL (70-99) 180 mg/dL (70-99) White Blood Count 6.8 x10^3/uL (4.0-11.0) Red Blood Count 3.72 x10^6/uL (3.50-5.40) Hemoglobin 10.3 g/dL (12.0-15.5) Hematocrit 30.9 % (36.0-47.0) Mean Corpuscular Volume 83 fL (79-100) Mean Corpuscular Hemoglobin 28 pg (25-35) Mean Corpuscular Hemoglobin Concent 33 g/dL (31-37) Red Cell Distribution Width 18.4 % (11.5-14.5) Platelet Count 152 x10^3/uL (140-400) Neutrophils (%) (Auto) 71 % (31-73) Lymphocytes (%) (Auto) 16 % (24-48) Monocytes (%) (Auto) 9 % (0-9) Eosinophils (%) (Auto) 4 % (0-3) Basophils (%) (Auto) 0 % (0-3) Neutrophils # (Auto) 4.8 x10^3uL (1.8-7.7) Lymphocytes # (Auto) 1.1 x10^3/uL (1.0-4.8) Monocytes # (Auto) 0.6 x10^3/uL (0.0-1.1) Eosinophils # (Auto) 0.3 x10^3/uL (0.0-0.7) Basophils # (Auto) 0.0 x10^3/uL (0.0-0.2) Sodium Level 137 mmol/L (136-145) Potassium Level 4.5 mmol/L (3.5-5.1) Chloride Level 104 mmol/L (98-107) Carbon Dioxide Level 26 mmol/L (21-32) Anion Gap 7 (6-14) Blood Urea Nitrogen 13 mg/dL (7-20) Creatinine 1.0 mg/dL (0.6-1.0) Estimated GFR (Cockcroft-Gault) 57.1 BUN/Creatinine Ratio 13 (6-20) Glucose Level 221 mg/dL (70-99) Calcium Level 8.0 mg/dL (8.5-10.1) Magnesium Level 2.2 mg/dL (1.8-2.4) Total Bilirubin 0.4 mg/dL (0.2-1.0) Aspartate Amino Transf (AST/SGOT) 41 U/L (15-37) Alanine Aminotransferase (ALT/SGPT) 11 U/L (14-59) Alkaline Phosphatase 78 U/L (46-116) Ammonia 16 mcmol/L (11-34) Total Protein 6.1 g/dL (6.4-8.2) Albumin 2.5 g/dL (3.4-5.0) Albumin/Globulin Ratio 0.7 (1.0-1.7) Thyroid Stimulating Hormone (TSH) 2.050 uIU/mL (0.358-3.74) Allergies: Coded Allergies: pregabalin (Verified Allergy, Intermediate, Hives, SUICIDAL IDEATIONS, ) GABAPENTIN IS HOME MED Medications: Current Medications Medications (Trade) Dose Ordered Sig/Fariha Route PRN Reason Start Time Stop Time Status Last Admin Dose Admin Carbidopa/Levodopa (Sinemet 25/100) 1 tab TIDAC PO 06/22/18 11:30 06/23/18 05:46 Imaging: Imaging: Head/C spine CT IMPRESSION: No evidence for acute intracranial process. IMPRESSION: 1. No evidence of acute fracture or subluxation. Chest/Abd/Pelvis CT IMPRESSION: 1. Hepatosplenomegaly. 2. T11 vertebral body height loss, progressed since prior 11/13/2017, however age indeterminate. 3. Moderate colonic stool content. 4. No abdominal or pelvic lymphadenopathy or free or loculated fluid collection. Abd US IMPRESSION: 1. Hepatomegaly with mildly increased hepatic echogenicity suggesting hepatic steatosis. 2. Borderline splenomegaly. 3. Obscuration of the pancreas and central retroperitoneum due to overlying bowel. Doppler US IMPRESSION: No significant abnormality is detected. EEG IMPRESSION: This electroencephalogram with the patient awake and asleep is within normal limits. There is no focal, paroxysmal, or epileptiform activity. PE: GEN: NAD, sitting on edge of bed HEENT: Atraumatic, PERRL LUNGS: diminished, NC HEART: RRR ABD: NABS, S/ND/NT EXTREMITY: No edema SKIN: some erythema on legs NEURO/PSYCH: A & O 3, tremors A/P: A/P: AMS, UTI, ?Parkinson's Hyperammonemia - resolved H/o Hep C - says treated 15 years ago, hepatic steatosis/hepatosplenomegaly on imaging Heartburn CRC screen - none -- Encephalopathy seems resolved, probably related to UTI w/ normal EEG. Will check Hep C for confirmation. Should have outpt colonoscopy. SHARLA LYLES Jun 23, 2018 10:06
[2018-06-23 11:00] VITALS: BP 131/78
--- NOTE | 2018-06-23 11:29 | PDOC ---
Infectious Disease Note Subjective Subjective Doing ok and wanting to go home Denies F/C/S/SOA/N/V/D/dysuria/frequency or urgency. Did fall prior to admit but states ok Rash is improving. No gross itch and not spreading ROS ROS o/w neg Vital Sign Vital Signs Vital Signs Date Time Temp Pulse Resp B/P (MAP) Pulse Ox O2 Delivery O2 Flow Rate FiO2 06/23/18 11:16 92 Room Air 06/23/18 08:54 87 156/75 06/23/18 07:00 97.9 16 97.9 06/23/18 03:00 2.0 Physical Exam PHYSICAL EXAM GENERAL: Alert, NAD Has tremors in the hands -picking like motion particularly with left Pt is comfortable, sitting in bed, in no acute distress. Eating HEENT: Normocephalic, atraumatic, anicteric. Moist, No thrush. No oral lesions. Oropharynx clear. No exudate. NECK: Supple. LUNGS: clear, no wheezing HEART: S1, S2.NO murmurs ABDOMEN: Soft, nontender, nondistended. BS+ EXTREMITIES: No edema, no cyanosis. DERMATOLOGIC: Superficial abrasion over the left knee. No effusion. No purulence. Generalized maculopapular rash all over face, neck, anterior chest, back, torso - improved No palm or sole involvement. No skin breakdown seen. No evidence of vesicles or fluid filled lesions. No evidence of secondary bacterial infection. NEUROLOGIC: Alert and oriented x 3. Grossly nonfocal. PSYCHIATRIC: Appropriate mood and affect, cooperative. MUSCULOSKELETAL: No joint effusion. No decrease in range of motion noted. Labs Lab Laboratory Tests Test 06/22/18 16:10 06/22/18 20:38 06/23/18 08:45 Glucose (Fingerstick) 165 mg/dL (70-99) 180 mg/dL (70-99) White Blood Count 6.8 x10^3/uL (4.0-11.0) Red Blood Count 3.72 x10^6/uL (3.50-5.40) Hemoglobin 10.3 g/dL (12.0-15.5) Hematocrit 30.9 % (36.0-47.0) Mean Corpuscular Volume 83 fL (79-100) Mean Corpuscular Hemoglobin 28 pg (25-35) Mean Corpuscular Hemoglobin Concent 33 g/dL (31-37) Red Cell Distribution Width 18.4 % (11.5-14.5) Platelet Count 152 x10^3/uL (140-400) Neutrophils (%) (Auto) 71 % (31-73) Lymphocytes (%) (Auto) 16 % (24-48) Monocytes (%) (Auto) 9 % (0-9) Eosinophils (%) (Auto) 4 % (0-3) Basophils (%) (Auto) 0 % (0-3) Neutrophils # (Auto) 4.8 x10^3uL (1.8-7.7) Lymphocytes # (Auto) 1.1 x10^3/uL (1.0-4.8) Monocytes # (Auto) 0.6 x10^3/uL (0.0-1.1) Eosinophils # (Auto) 0.3 x10^3/uL (0.0-0.7) Basophils # (Auto) 0.0 x10^3/uL (0.0-0.2) Sodium Level 137 mmol/L (136-145) Potassium Level 4.5 mmol/L (3.5-5.1) Chloride Level 104 mmol/L (98-107) Carbon Dioxide Level 26 mmol/L (21-32) Anion Gap 7 (6-14) Blood Urea Nitrogen 13 mg/dL (7-20) Creatinine 1.0 mg/dL (0.6-1.0) Estimated GFR (Cockcroft-Gault) 57.1 BUN/Creatinine Ratio 13 (6-20) Glucose Level 221 mg/dL (70-99) Calcium Level 8.0 mg/dL (8.5-10.1) Magnesium Level 2.2 mg/dL (1.8-2.4) Total Bilirubin 0.4 mg/dL (0.2-1.0) Aspartate Amino Transf (AST/SGOT) 41 U/L (15-37) Alanine Aminotransferase (ALT/SGPT) 11 U/L (14-59) Alkaline Phosphatase 78 U/L (46-116) Ammonia 16 mcmol/L (11-34) Total Protein 6.1 g/dL (6.4-8.2) Albumin 2.5 g/dL (3.4-5.0) Albumin/Globulin Ratio 0.7 (1.0-1.7) Thyroid Stimulating Hormone (TSH) 2.050 uIU/mL (0.358-3.74) Hepatitis C IgG Antibody Reactive (Nonreactive) Micro Microbiology 06/21/18 Blood Culture - Preliminary, Resulted NO GROWTH AFTER 1 DAY Objective Assessment 1. Sepsis. etiology, could be bacterial or viral - better - cults neg 2. Pyuria with a working diagnosis of urinary tract infection but no cult. 3. Generalized rash. 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 4. Acute kidney injury. 5. History of fall. 6. High ammonia - GI following 7. H/O COPD/Suspected atelectasis. 8. Lactic acidosis.resolved 9. Altered mental status improved, no clinical evidence of meningitis or encephalitis Plan Plan of Care 1. Discont empiric cefepime - begin cefpodoxime for 5 days 2. Rash per primary 3. Continue supportive care. CECELIA SMITH MD Jun 23, 2018 11:29
[2018-06-23] MEDS: LACTOBACILLUS RHAMNOSUS GG 1 CAPSULE. PO SCH (11:45)
[2018-06-23] MEDS: IV NORMAL SALINE 1000ML BAG 1,000 ML IV SCH (11:46)
[2018-06-23] MEDS ORDERED: CEFPODOXIME PROXETIL 100 MG TABLET. PO SCH (13:00)
[2018-06-23 15:00] VITALS: BP 134/82
--- NOTE | 2018-06-23 15:38 | PDOC3 ---
Discharge Summary Date of Admission: Jun 20, 2018 Date of Discharge: Jun 23, 2018 Follow-Up: 1-2 days Admitting Diagnosis comment: DISCHARGE DIAGNOSIS Chief Complaint acute metabolic encephalopathy sepsis, sepsis syndrome, UTI, bronchitis Dm2, poor control on admit seizure h/o , on tegretol fall maybe from seizure, might now be post-ictal or unsteady gait fall, concussion, CT head OK SELVIN, vasomotr frequent falls dm2 on insulin HTN copd acute hypoxic resp failure hepatosplenomegaly hepatic steatosis. Parkinson's disease begin cefpodoxime for 5 days plan: SEE DR KIRKLAND 2 WEEKS SEE PCP TOMORROW lactulose doppler hepatic vein start sinemet fu with id, pulm, cont most home meds, hold amlodipine, still on metoprolol, losartan insulin, ssi cefepime as per ID pt wants go home, given she had high fever, + US, required NC 2L wo home o2, frequent falls in the past 2 weeks, likely sec to Parkinson's. discussed with pt and nurse. History of Present Illness History of Present Illness ROS: n [place], sob or chest pain no home o2, now on NC 2l t 102 PT WANTS go home , refused request based on encephalopathy add lactulose see PCP TOMORROW FINAL DIAGNOSIS Problems Medical Problems: (1) Acute renal insufficiency Status: Acute (2) Elevated lactic acid level Status: Acute (3) Fever Status: Acute (4) Rash Status: Acute (5) Severe sepsis Status: Acute (6) Weakness Status: Acute Brief Hospital Course Ms. Ware is a 57 old [sex] who presented with [ SEPSIS, ENCEPHALOPATHY ] CONDITION AT DISCHARGE: Improved Discharge Medications Current Medications Acetaminophen (Tylenol) 650 mg 1X ONCE PO Last administered on 06/20/18at 18:47 ; Start 06/20/18 at 18:15; Stop 06/20/18 at 18:20; Status DC Sodium Chloride 1,000 ml @ 1,000 mls/hr 1X ONCE IV Last administered on at 18:46; Start 06/20/18 at 18:15; Stop 06/20/18 at 19:14; Status DC Sodium Chloride 1,000 ml @ 1,000 mls/hr 1X ONCE IV Last administered on at 18:48; Start 06/20/18 at 18:15; Stop 06/20/18 at 19:14; Status DC Sodium Chloride 500 ml @ 500 mls/hr 1X ONCE IV Last administered on at 18:49; Start 06/20/18 at 18:15; Stop 06/20/18 at 19:14; Status DC Lorazepam (Ativan) 0.5 mg 1X ONCE IV Last administered on 06/20/18at 18:47; Start 06/20/18 at 18:45; Stop 06/20/18 at 18:46; Status DC Piperacillin Sod/ Tazobactam Sod 4.5 gm/Sodium Chloride 100 ml @ 200 mls/hr 1X ONCE IV Last administered on 06/20/18at 20:15; Start 06/20/18 at 19:15; Stop 06/20/18 at 19:44; Status DC Ondansetron HCl (Zofran) 4 mg PRN Q8HRS PRN IV NAUSEA/VOMITING; Start 06/20/18 at 21:45; Stop 06/21/18 at 21:44; Status DC Amlodipine Besylate (Norvasc) 10 mg DAILY PO Last administered on 06/21/18at 09: 49; Start 06/21/18 at 09:00; Stop 06/21/18 at 14:19; Status DC Bisacodyl (Dulcolax Supp) 20 mg PRN Q6HRS PRN RC CONSTIPATION; Start 06/20/18 at 23:15 Bisacodyl (Dulcolax Tab) 10 mg Q6HRS PO Last administered on 06/23/18at 05:46; Start 06/21/18 at 00:00 Carbamazepine (TEGretol) 200 mg BID PO Last administered on 06/23/18at 08:53; Start 06/21/18 at 09:00 Glyburide (Diabeta) 10 mg BIDWMEALS PO Last administered on 06/23/18at 08:53; Start 06/21/18 at 08:00 Losartan Potassium (Cozaar) 50 mg DAILY PO Last administered on 06/23/18at 08:53 ; Start 06/21/18 at 09:00 Simvastatin (Zocor) 10 mg QHS PO Last administered on 06/22/18at 20:48; Start at 21:00 Trimethoprim/ Sulfamethoxazole (Bactrim Ds) 1 tab BID PO ; Start 06/21/18 at 09: 00; Stop 06/21/18 at 09:00; Status DC Gabapentin (Neurontin) 900 mg BID PO Last administered on 06/23/18 08:54; Start 06/21/18 at 09:00 Magnesium Citrate (Citroma) 296 ml DAILY PO Last administered on 06/22/18 09: 13; Start 06/21/18 at 09:00 Metformin HCl (Glucophage) 1,000 mg BIDWMEALS PO Last administered on 08:53; Start 06/21/18 at 08:00 Metoprolol Tartrate (Lopressor) 100 mg BID PO Last administered on 06/23/18 08 :54; Start 06/21/18 at 09:00 Multivitamins (Thera M Plus) 1 tab DAILY PO Last administered on 06/23/18 08: 53; Start 06/21/18 at 09:00 Nortriptyline HCl (Pamelor) 150 mg HS PO Last administered on 06/22/18 20:47; Start 06/21/18 at 21:00 Non-Formulary Medication (Tiotropium Alexander (Spiriva)) 1 cap DAILY IH ; Start 06/21/18 at 09:00; Status UNV Insulin Human Lispro (HumaLOG) 0-9 UNITS TIDWMEALS SQ Last administered on 06/23 11:55; Start 06/21/18 at 08:00 Dextrose (Dextrose 50%-Water Syringe) 12.5 gm PRN Q15MIN PRN IV SEE COMMENTS; Start 06/20/18 at 23:15 Insulin Glargine (Lantus) 12 units QHS SQ Last administered on 06/22/18 20:55 ; Start 06/20/18 at 23:15 Acetaminophen (Tylenol) 650 mg PRN Q6HRS PRN PO fever Last administered on 06/22 20:48; Start 06/20/18 at 23:30 Sodium Chloride 1,000 ml @ 100 mls/hr Q10H IV Last administered on 06/23/18 11:46; Start 06/20/18 at 23:30 Sodium Chloride 1,000 ml @ 1,000 mls/hr 1X ONCE IV Last administered on at 23:44; Start 06/20/18 at 23:30; Stop 06/21/18 at 00:29; Status DC Piperacillin Sod/ Tazobactam Sod (Zosyn Per Pharmacy) 1 each PRN DAILY PRN MC SEE COMMENTS; Start 06/20/18 at 23:30; Stop 06/21/18 at 11:48; Status DC Insulin Human Lispro (HumaLOG) 12 units 1X ONCE SQ Last administered on at 23:54; Start 06/20/18 at 23:45; Stop 06/20/18 at 23:46; Status DC Piperacillin Sod/ Tazobactam Sod 3.375 gm/Sodium Chloride 50 ml @ 100 mls/hr Q6HRS IV Last administered on 06/21/18at 06:08; Start 06/21/18 at 00:00; Stop at 10:28; Status DC Albuterol/ Ipratropium (Duoneb) 3 ml RTQID NEB Last administered on 06/23/18at 15:22; Start 06/21/18 at 08:00 Sodium Chloride 500 ml @ 500 mls/hr 1X ONCE IV Last administered on at 02:45; Start 06/21/18 at 02:45; Stop 06/21/18 at 03:44; Status DC Info (Do NOT chart on this placeholder) 1 each 1X ONCE MC ; Start 06/21/18 at 03:00; Stop 06/21/18 at 03:01; Status UNV Influenza Virus Vaccine (Afluria Trivalent [id number] Syringe) 0.5 ml ONCE ONCE VAX IM Last administered on 06/21/18at 11:47; Start 06/21/18 at 09:00; Stop at 09:01; Status DC Cefepime HCl 1 gm/ Dextrose 50 ml @ 100 mls/hr Q8HRS IV ; Start 06/21/18 at 14: 00; Status UNV Cefepime HCl (Maxipime) 1 gm Q8HRS IVP Last administered on 06/23/18at 05:46; Start 06/21/18 at 11:00; Stop 06/23/18 at 12:09; Status DC Lactobacillus Rhamnosus (Culturelle) 1 cap BID PO Last administered on at 11:45; Start 06/21/18 at 21:00 Diphenhydramine HCl (Benadryl) 25 mg PRN Q6HRS PRN IVP ITCHING Last administered on 06/23/18at 05:50; Start 06/21/18 at 18:45 Carbidopa/Levodopa (Sinemet 25/100) 1 tab TIDAC PO Last administered on at 11:45; Start 06/22/18 at 11:30 Lactulose (Lactulose) 20 gm DAILY08 PO ; Start 06/22/18 at 18:00 Cefpodoxime Proxetil (Vantin) 200 mg BID PO Last administered on 06/23/18at 13: 18; Start 06/23/18 at 13:00 Active Scripts Active Orphenadrine Citrate 100 Mg Tablet.er 1 Tab PO BID PRN Bactrim Ds Tablet (Sulfamethoxazole/Trimethoprim) 1 Each Tablet 1 Tab PO BID 10 Days Biscolax (Bisacodyl) 10 Mg Supp.rect 20 Mg RC Q6HRS PRN Dulcolax (Bisacodyl) 5 Mg Tablet.dr 2 Tab PO Q6HRS Magnesium Citrate 296 Ml Solution 296 Ml PO DAILY 3 Days Cozaar (Losartan Potassium) 50 Mg Tablet 50 Mg PO DAILY Simvastatin 10 Mg Tablet 10 Mg PO QHS Amlodipine Besylate 10 Mg Tablet 10 Mg PO DAILY Reported [Anti-depression] [Biotin] PO DAILY Carbamazepine 200 Mg Tablet 200 Mg PO BID Nortriptyline Hcl 75 Mg Capsule 150 Mg PO HS Spiriva (Tiotropium Alexander) 18 Mcg Cap.w.dev 1 Cap IH DAILY Metformin Hcl 1,000 Mg Tablet 1,000 Mg PO BIDAC Fish Oil ([place]-3 Fatty Acids) 300 Mg Capsule 300 Mg PO Multi-Day Vitamins (Multivitamin) 1 Each Tablet 1 Cap PO DAILY Alprazolam 0.5 Mg Tablet 1 Tab PO BID PRN Gabapentin 300 Mg Capsule 900 Mg PO BID Metoprolol Tartrate 100 Mg Tablet 1 Tab PO BID Vital Signs Vital Signs Date Time Temp Pulse Resp B/P (MAP) Pulse Ox O2 Delivery O2 Flow Rate FiO2 06/23/18 15:22 Room Air 06/23/18 15:00 98.1 81 20 134/82 (99) 90 98.1 06/23/18 03:00 2.0 Labs Laboratory Tests Test 06/21/18 17:08 06/21/18 20:33 06/22/18 05:05 06/22/18 07:54 Glucose (Fingerstick) 155 mg/dL (70-99) 186 mg/dL (70-99) 111 mg/dL (70-99) White Blood Count 6.8 x10^3/uL (4.0-11.0) Red Blood Count 3.99 x10^6/uL (3.50-5.40) Hemoglobin 11.1 g/dL (12.0-15.5) Hematocrit 33.1 % (36.0-47.0) Mean Corpuscular Volume 83 fL (79-100) Mean Corpuscular Hemoglobin 28 pg (25-35) Mean Corpuscular Hemoglobin Concent 34 g/dL (31-37) Red Cell Distribution Width 17.4 % (11.5-14.5) Platelet Count 140 x10^3/uL (140-400) Neutrophils (%) (Auto) 69 % (31-73) Lymphocytes (%) (Auto) 20 % (24-48) Monocytes (%) (Auto) 8 % (0-9) Eosinophils (%) (Auto) 3 % (0-3) Basophils (%) (Auto) 0 % (0-3) Neutrophils # (Auto) 4.7 x10^3uL (1.8-7.7) Lymphocytes # (Auto) 1.4 x10^3/uL (1.0-4.8) Monocytes # (Auto) 0.5 x10^3/uL (0.0-1.1) Eosinophils # (Auto) 0.2 x10^3/uL (0.0-0.7) Basophils # (Auto) 0.0 x10^3/uL (0.0-0.2) Sodium Level 136 mmol/L (136-145) Potassium Level 3.6 mmol/L (3.5-5.1) Chloride Level 102 mmol/L (98-107) Carbon Dioxide Level 23 mmol/L (21-32) Anion Gap 11 (6-14) Blood Urea Nitrogen 15 mg/dL (7-20) Creatinine 1.0 mg/dL (0.6-1.0) Estimated GFR (Cockcroft-Gault) 57.1 Glucose Level 111 mg/dL (70-99) Calcium Level 8.6 mg/dL (8.5-10.1) Test 06/22/18 11:20 06/22/18 16:10 06/22/18 20:38 06/23/18 08:45 Glucose (Fingerstick) 154 mg/dL (70-99) 165 mg/dL (70-99) 180 mg/dL (70-99) White Blood Count 6.8 x10^3/uL (4.0-11.0) Red Blood Count 3.72 x10^6/uL (3.50-5.40) Hemoglobin 10.3 g/dL (12.0-15.5) Hematocrit 30.9 % (36.0-47.0) Mean Corpuscular Volume 83 fL (79-100) Mean Corpuscular Hemoglobin 28 pg (25-35) Mean Corpuscular Hemoglobin Concent 33 g/dL (31-37) Red Cell Distribution Width 18.4 % (11.5-14.5) Platelet Count 152 x10^3/uL (140-400) Neutrophils (%) (Auto) 71 % (31-73) Lymphocytes (%) (Auto) 16 % (24-48) Monocytes (%) (Auto) 9 % (0-9) Eosinophils (%) (Auto) 4 % (0-3) Basophils (%) (Auto) 0 % (0-3) Neutrophils # (Auto) 4.8 x10^3uL (1.8-7.7) Lymphocytes # (Auto) 1.1 x10^3/uL (1.0-4.8) Monocytes # (Auto) 0.6 x10^3/uL (0.0-1.1) Eosinophils # (Auto) 0.3 x10^3/uL (0.0-0.7) Basophils # (Auto) 0.0 x10^3/uL (0.0-0.2) Sodium Level 137 mmol/L (136-145) Potassium Level 4.5 mmol/L (3.5-5.1) Chloride Level 104 mmol/L (98-107) Carbon Dioxide Level 26 mmol/L (21-32) Anion Gap 7 (6-14) Blood Urea Nitrogen 13 mg/dL (7-20) Creatinine 1.0 mg/dL (0.6-1.0) Estimated GFR (Cockcroft-Gault) 57.1 BUN/Creatinine Ratio 13 (6-20) Glucose Level 221 mg/dL (70-99) Calcium Level 8.0 mg/dL (8.5-10.1) Magnesium Level 2.2 mg/dL (1.8-2.4) Total Bilirubin 0.4 mg/dL (0.2-1.0) Aspartate Amino Transf (AST/SGOT) 41 U/L (15-37) Alanine Aminotransferase (ALT/SGPT) 11 U/L (14-59) Alkaline Phosphatase 78 U/L (46-116) Ammonia 16 mcmol/L (11-34) Total Protein 6.1 g/dL (6.4-8.2) Albumin 2.5 g/dL (3.4-5.0) Albumin/Globulin Ratio 0.7 (1.0-1.7) Thyroid Stimulating Hormone (TSH) 2.050 uIU/mL (0.358-3.74) Hepatitis C IgG Antibody Reactive (Nonreactive) Laboratory Tests Test 06/22/18 16:10 06/22/18 20:38 06/23/18 08:45 Glucose (Fingerstick) 165 mg/dL (70-99) 180 mg/dL (70-99) White Blood Count 6.8 x10^3/uL (4.0-11.0) Red Blood Count 3.72 x10^6/uL (3.50-5.40) Hemoglobin 10.3 g/dL (12.0-15.5) Hematocrit 30.9 % (36.0-47.0) Mean Corpuscular Volume 83 fL (79-100) Mean Corpuscular Hemoglobin 28 pg (25-35) Mean Corpuscular Hemoglobin Concent 33 g/dL (31-37) Red Cell Distribution Width 18.4 % (11.5-14.5) Platelet Count 152 x10^3/uL (140-400) Neutrophils (%) (Auto) 71 % (31-73) Lymphocytes (%) (Auto) 16 % (24-48) Monocytes (%) (Auto) 9 % (0-9) Eosinophils (%) (Auto) 4 % (0-3) Basophils (%) (Auto) 0 % (0-3) Neutrophils # (Auto) 4.8 x10^3uL (1.8-7.7) Lymphocytes # (Auto) 1.1 x10^3/uL (1.0-4.8) Monocytes # (Auto) 0.6 x10^3/uL (0.0-1.1) Eosinophils # (Auto) 0.3 x10^3/uL (0.0-0.7) Basophils # (Auto) 0.0 x10^3/uL (0.0-0.2) Sodium Level 137 mmol/L (136-145) Potassium Level 4.5 mmol/L (3.5-5.1) Chloride Level 104 mmol/L (98-107) Carbon Dioxide Level 26 mmol/L (21-32) Anion Gap 7 (6-14) Blood Urea Nitrogen 13 mg/dL (7-20) Creatinine 1.0 mg/dL (0.6-1.0) Estimated GFR (Cockcroft-Gault) 57.1 BUN/Creatinine Ratio 13 (6-20) Glucose Level 221 mg/dL (70-99) Calcium Level 8.0 mg/dL (8.5-10.1) Magnesium Level 2.2 mg/dL (1.8-2.4) Total Bilirubin 0.4 mg/dL (0.2-1.0) Aspartate Amino Transf (AST/SGOT) 41 U/L (15-37) Alanine Aminotransferase (ALT/SGPT) 11 U/L (14-59) Alkaline Phosphatase 78 U/L (46-116) Ammonia 16 mcmol/L (11-34) Total Protein 6.1 g/dL (6.4-8.2) Albumin 2.5 g/dL (3.4-5.0) Albumin/Globulin Ratio 0.7 (1.0-1.7) Thyroid Stimulating Hormone (TSH) 2.050 uIU/mL (0.358-3.74) Hepatitis C IgG Antibody Reactive (Nonreactive) Allergies Allergies Coded Allergies Type Severity Reaction Last Updated Verified pregabalin Allergy Intermediate Hives, SUICIDAL IDEATIONS 06/21/18 Yes Disposition/Orders: D/C to Home Patient Instructions D/C PLANNING 35 MIN LEONEL CAMPA MD Jun 23, 2018 15:38
[2018-06-23] MEDS ORDERED: CEFP100T PO (15:44)
[2018-06-23] MEDS ORDERED: INSU100I13 SQ (15:44)
[2018-06-24 22:12] LABS: HCV ULTRA QUANT PCR HCV Not Detected IU/mL (.)
== END 2018-06-23 18:42 | disposition home or self-care (01) | DRG 871 ==
LOC: ER 17:47 → 4 NORTH 21:29
PROVIDERS: ADMIT Internal Medicine; ATTEND Internal Medicine
DX: A41.9 Sepsis, unspecified organism (principal); N17.0 Acute kidney failure with tubular necrosis; G93.41 Metabolic encephalopathy; J96.01 Acute respiratory failure with hypoxia; J44.0 Chronic obstructive pulmonary disease with (acute) lower respiratory infection; N39.0 Urinary tract infection, site not specified; S06.0X9A Concussion with loss of consciousness of unspecified duration, initial encounter; E44.0 Moderate protein-calorie malnutrition; J98.11 Atelectasis; E72.20 Disorder of urea cycle metabolism, unspecified; L53.9 Erythematous condition, unspecified; W18.30XA Fall on same level, unspecified, initial encounter; I50.9 Heart failure, unspecified; I11.0 Hypertensive heart disease with heart failure; I25.10 Atherosclerotic heart disease of native coronary artery without angina pectoris; R65.20 Severe sepsis without septic shock; R21 Rash and other nonspecific skin eruption; K76.0 Fatty (change of) liver, not elsewhere classified; G20 Parkinson's disease; R29.6 Repeated falls; R16.2 Hepatomegaly with splenomegaly, not elsewhere classified; E11.65 Type 2 diabetes mellitus with hyperglycemia; E66.9 Obesity, unspecified; E78.5 Hyperlipidemia, unspecified; J20.9 Acute bronchitis, unspecified; E11.42 Type 2 diabetes mellitus with diabetic polyneuropathy; F32.9 Major depressive disorder, single episode, unspecified; G40.909 Epilepsy, unspecified, not intractable, without status epilepticus; F41.9 Anxiety disorder, unspecified; B19.20 Unspecified viral hepatitis C without hepatic coma; K21.9 Gastro-esophageal reflux disease without esophagitis; Y93.89 Activity, other specified; Y92.009 Unspecified place in unspecified non-institutional (private) residence as the place of occurrence of the external cause; Y99.8 Other external cause status; Z82.49 Family history of ischemic heart disease and other diseases of the circulatory system; Z98.891 History of uterine scar from previous surgery; Z88.8 Allergy status to other drugs, medicaments and biological substances; Z79.899 Other long term (current) drug therapy; Z87.891 Personal history of nicotine dependence; Z68.28 Body mass index [BMI] 28.0-28.9, adult; Z95.1 Presence of aortocoronary bypass graft; Z80.3 Family history of malignant neoplasm of breast; Z79.82 Long term (current) use of aspirin; Z79.4 Long term (current) use of insulin
CPT/HCPCS: 36415; 70450; 71250; 72125; 74176; 76700; 80048; 80053; 80307; 81001; 82140; 82306; 82550; 82607; 82962; 83605; 83690; 83735; 84443; 84484; 85025; 85610; 85730; 86703; 86803; 87040; 87086; 87186; 87521; 90471; 90756; 93005; 93975; 94618; 94640; 94760; 95816; 96361; 96365; 96375; J0692; J1200; J1815; J2060; J2543; J7030; J7040; J7620; 99285-25; G0479; Q2035

== ENCOUNTER → 2018-10-15 | Outpatient (CLI) | payer OTHER ==
[~2018-10-15] MED LIST changes: +ACET500T68 PO; -AMLO10TA6 PO; +AMLO10TA8 PO; +AMLO5TAB10 PO; +AMOX1TAB11 PO; +ASPI81TA50 PO; +ATOR40TA59 PO; +CEFP100T PO; +DULA0.75 SQ; -GABA-586 PO; +GABA300C18 PO; +HYDR-2145 PO; -HYDR25TA9 PO; +INSU100I13 SQ; +LOSA-73 PO; -LOSA50TA2 PO; +METF500T16 PO
--- NOTE | 2018-10-15 17:21 | RAD ---
CHEST PA LATERAL Clinical indications: CHRONIC COUGH, PNEUMONIA COMPARISON: November 07, 2017.. 2 view chest x-ray dated September 09, 2016. Findings: Chronic mild elevation of the right hemidiaphragm is seen. Chronic mild atelectasis of the right lung base is seen. No acute lung infiltrate or pleural effusion or pulmonary edema or lung mass or pneumothorax is seen. Mild cardiomegaly is seen which is stable. A sternotomy and cardiac valve prosthesis are again evident. The pulmonary vasculature, mediastinum and both eda are otherwise unremarkable. There is a compression fracture of T12 which is unchanged from June 20, [address] Impression: No new radiographic abnormality is seen. Electronically signed by: Carson James MD (10/15/2018 5:16 PM) [place] [id number]
== END | disposition home or self-care (01) ==
LOC: RAD 13:53
PROVIDERS: ATTEND Family Medicine
DX: J98.6 Disorders of diaphragm (principal); M48.54XD Collapsed vertebra, not elsewhere classified, thoracic region, subsequent encounter for fracture with routine healing; I51.7 Cardiomegaly; J98.11 Atelectasis
CPT/HCPCS: 71046

== ENCOUNTER 2018-12-14 16:09 | Inpatient (IN) | payer OTHER ==
[~2018-12-14] VITALS: Ht 170.2 cm; Wt 86.6 kg
[~2018-12-14 16:09] MED LIST changes: -ACET500T68 PO; -AMLO5TAB10 PO; -AMOX1TAB11 PO; -ASPI81TA50 PO; -ATOR40TA59 PO; +BISACODYL 5 MG TABLET.DR. PO PRN; -DULA0.75 SQ; -METF500T16 PO
--- NOTE | 2018-12-14 18:55 | NUR ---
Patient direct admit to room 576, plan of care discussed, "If you make me have a bed alarm...I'm leaving...I will not have one...I dont have any problems with falls.' Patient is asked to call if dizzy, in pain, or if needing assistance, and alarm will be off. Patient hospital info booklet given,
[2018-12-14 19:00] VITALS: BP 141/79
[2018-12-14] MEDS ORDERED: VANCOMYCIN 2 GM in IV NORMAL SALINE 500ML BAG 500 ML IV ONE (19:30)
--- NOTE | 2018-12-14 19:42 | HP ---
ADMIT DATE: 12/14/2018 CHIEF COMPLAINT: Infected left index finger. HISTORY OF PRESENT ILLNESS: A 58-year-old white female, known diabetic, not well controlled on insulin, came to the office 3 days prior to admission. She had burned her finger on some cooking utensils about a month to 6 weeks prior to this first office visit and progressive infection signs showed. She was placed on doxycycline and cephalexin and Silvadene and came to the office 3 days later, but finger was clearly worse, and she was admitted for further evaluation. X-rays showed evidence of suspected osteomyelitis at the tip of the distal left index finger. Tetanus status up to date. PAST HISTORY: MEDICATIONS: Multiple listed per the chart. ALLERGIES: No allergies are noted. Her last A1c was 9.2, taking Lantus, Trulicity, metformin and alogliptin. SOCIAL HISTORY: Nonsmoker, nondrinker, not physically active, single. FAMILY HISTORY: Unremarkable. REVIEW OF SYSTEMS: She has had a coronary bypass in 2018 at , no other significant medical problems otherwise. OBJECTIVE: ENT: All within normal limits. NECK: No nodes, masses or bruits. LUNGS: Clear. CARDIOVASCULAR: Regular rate. No irregular beat or murmur. ABDOMEN: Obese, soft, nontender. EXTREMITIES: Left index finger is diffusely red with some blistering at the volar base of the finger and draining pink wound at the distal tip. There is an opening on the dorsal finger distally as well, which she said was a wound from recent trauma. There is no streaking of the palm or arm. No adenopathy is noted. She has decreased pedal pulses bilaterally. ASSESSMENT: 1. Progressive cellulitis of the left index finger with suspected distal osteomyelitis. 2. Poorly controlled diabetes despite multiple meds. 3. History of coronary artery bypass and coronary artery disease. 4. Peripheral arterial disease and hypertension. PLAN: IV vancomycin and Zosyn, pending cultures and surgical consultation, x-rays. She is advised that this is a finger threatening infection. EVERTON FRAZIER MD DR: NICHOLAS/lizzy JOB#: [id number] / [id number]
[2018-12-14] MEDS ORDERED: METF500T16 PO (19:54)
[2018-12-14] MEDS ORDERED: ASPI81TA50 PO (19:54)
[2018-12-14] MEDS ORDERED: ATOR40TA59 PO (19:54)
[2018-12-14] MEDS ORDERED: AMLO5TAB10 PO (19:54)
[2018-12-14] MEDS ORDERED: INSU100I13 SQ (19:54)
[2018-12-14] MEDS ORDERED: DULA0.75 SQ (19:54)
[2018-12-14] MEDS ORDERED: ACET500T68 PO (19:54)
[2018-12-14] MEDS ORDERED: FURO40TA4 PO (19:54)
[2018-12-14] MEDS ORDERED: NON FORMULARY ITEM (Dulaglutide (Trulicity) 0.75 MG) SQ PRN (20:00)
[2018-12-14] MEDS ORDERED: ACETAMINOPHEN 325 MG TABLET. PO PRN (20:30)
[2018-12-14] MEDS: PIPERACILLIN/TAZOBACTAM 3.375 GM in IV NORMAL SALINE 50ML 50 ML IV SCH (20:46)
[2018-12-14] MEDS: INSULIN GLARGINE 300 UNITS/3 ML INSULN.PEN. SQ SCH (21:00)
[2018-12-14] MEDS ORDERED: FUROSEMIDE 40 MG TABLET. PO SCH (21:00)
[2018-12-14] MEDS: GABAPENTIN 300 MG CAPSULE. PO SCH (21:02)
[2018-12-14] MEDS: NORTRIPTYLINE 25 MG CAPSULE PO SCH (21:02)
[2018-12-14] MEDS: METOPROLOL TART IMMED RELEASE 50 MG TABLET. PO SCH (21:03)
[2018-12-14 21:05] LABS: BASO % 0 % (0-3); EOS # 0.1 x10^3/uL (0.0-0.7); EOS % 1 % (0-3); HEMATOCRIT 33.4 % (36.0-47.0); LYMPH # 2.6 x10^3/uL (1.0-4.8); LYMPH % 25 % (24-48); MEAN CORPUSCULAR HEMOGLOBIN 27 pg (25-35); MEAN CORPUSCULAR HGB CONC 33 g/dL (31-37); MEAN CORPUSCULAR VOLUME 81 fL (79-100); MONO # 0.8 x10^3/uL (0.0-1.1); MONO % 8 % (0-9); NEUT # 6.8 x10^3uL (1.8-7.7); NEUT % 66 % (31-73); PLATELET COUNT 317 x10^3/uL (140-400); RED CELL DISTRIBUTION WIDTH 15.3 % (11.5-14.5); WHITE BLOOD COUNT 10.4 x10^3/uL (4.0-11.0)
[2018-12-14 21:13] LABS: CALCIUM 8.9 mg/dL (8.5-10.1); CREATININE 1.4 mg/dL (0.6-1.0); GFR 38.6; POTASSIUM 3.4 mmol/L (3.5-5.1)
[2018-12-14] MEDS ORDERED: ALBUTEROL SULFATE 2.5 MG/3 ML NEBU. NEB PRN (21:15)
[2018-12-14 23:00] VITALS: BP 133/70
[2018-12-14] MEDS ORDERED: ONDANSETRON PF 4 MG/2 ML VIAL. IV PRN (23:00)
[2018-12-15] VITALS (10 sets, daily range): BP systolic 110–157; BP diastolic 55–84
[2018-12-15] MEDS: PIPERACILLIN/TAZOBACTAM 3.375 GM in IV NORMAL SALINE 50ML 50 ML IV SCH ×5 (01:16→23:58)
[2018-12-15] MEDS: ALPRAZolam 0.5 MG TABLET PO PRN ×2 (01:20→21:46)
[2018-12-15] MEDS: VANCOMYCIN PER PHARMACY MC PRN (01:21)
--- NOTE | 2018-12-15 01:21 | NUR ---
Pharmacy Vancomycin Dosing Note S:Consulted to monitor and dose vancomycin started 12/14/18. O:HUY LARES is a 58 year old F with Cellulitis Osteomyelitis . Height: 5 feet, 7 inches Weight: 84.906789 kg [place] Body Weight: 61.60 Adjusted Body Weight: 70.96 Dosing Weight: Actual Other Antibiotics: ZOSYN 3.375 GM Q6H LABS: Last BUN: 18 Last Creatinine: 1.4 Creatinine Clearance: 49 mL/min Last WBC: 10.4 Last Procalcitonin: Tmax (past 24 hours): Microbiology: I/O: Drug Levels: Last level: on at Last dose given 12/14/18 at 2200 Vancomycin Dosing: Loading Dose: 2000 mg x1 Dosing Weight: Actual Target Trough: 15-20 A: Based on: WT AND CRCL P: 1. Begin Vancomycin 1250 mg IV q24h 2. Follow up Trough level on 12/16/18 at 2130 3. Pharmacy will continue to monitor, follow and adjust therapy as needed. JOSH REDDY RPH, 12/15/18 0121 Signed: 12/15/18 at 0122 by JOSH REDDY RPH PHA
[2018-12-15] MEDS: ASPIRIN CHEWABLE 81 MG TABLET. PO SCH (08:00)
[2018-12-15] MEDS ORDERED: IPRATRPIUM/ALBUTEROL 0.5/2.5MG 3 ML NEBU. NEB SCH (08:00)
[2018-12-15] MEDS: metFORMIN 500 MG TABLET PO SCH ×2 (08:00→19:27)
--- NOTE | 2018-12-15 08:16 | PDOC ---
Provider Note Provider Note vss, no temp, am gluc 187, op a1c high- culture pending, pseudomonas possible- cont vanc/zosyn for now - wound a little less red proximally than on admit- xr pending but showed distal phalanx osteo last week EVERTON FRAZIER MD Dec 15, 2018 08:16
--- NOTE | 2018-12-15 08:28 | RAD ---
Indication: Infected index finger. TECHNIQUE: 3 views of the index finger. COMPARISON: None FINDINGS: There is erosion and pathologic fracture of the distal phalanx of the second finger with soft tissue swelling. The process extends to the DIP joint. IMPRESSION: Findings of osteomyelitis with pathologic fracture involving the distal phalanx of the index finger with infectious process extending to the DIP joint. Electronically signed by: Momo Brown DO (12/15/2018 8:25 AM) [facility]
[2018-12-15] MEDS: INSULIN LISPRO 300 UNITS/3 ML INSULN.PEN. SQ SCH ×3 (08:30→17:00)
--- NOTE | 2018-12-15 08:40 | NUR ---
PATIENT SEEN BY DR. MENA AT THIS TIME, HE INFORMED THE PATIENT THAT HE HAD ANTICIPATED SURGERY TO HER LEFT INDEX FINGER BUT SINCE SHE HAD RECEIVED BREAKFAST, WILL MAKE PATIENT NPO AT THIS TIME PER REQUEST, PATIENT INFORMED THAT IF SHE DOES NOT RECEIVE THE PROCEDURE TODAY THEN SHE WOULD BE ABLE TO EAT UP UNTIL MIDNIGHT THE NPO.
[2018-12-15] MEDS: POTASSIUM CHLORIDE 10 MEQ TABLET.ER. PO SCH ×3 (08:47→19:27)
[2018-12-15] MEDS: GABAPENTIN 300 MG CAPSULE. PO SCH ×2 (08:49→21:02)
[2018-12-15] MEDS: METOPROLOL TART IMMED RELEASE 50 MG TABLET. PO SCH ×2 (08:49→21:02)
[2018-12-15] MEDS: MULTIVITAMIN with MINERAL TABLET. PO SCH (08:50)
[2018-12-15] MEDS: amLODIPine BESYLATE 5 MG TABLET PO SCH (08:51)
--- NOTE | 2018-12-15 11:50 | PDOC ---
Infectious Disease Note Vital Sign Vital Signs Vital Signs Date Time Temp Pulse Resp B/P (MAP) Pulse Ox O2 Delivery O2 Flow Rate FiO2 12/15/18 10:39 97.4 72 16 135/75 (95) 92 Room Air 97.4 Labs Lab Laboratory Tests Test 12/14/18 20:25 12/14/18 20:55 12/15/18 07:25 12/15/18 11:16 Glucose (Fingerstick) 306 mg/dL (70-99) 187 mg/dL (70-99) 241 mg/dL (70-99) White Blood Count 10.4 x10^3/uL (4.0-11.0) Red Blood Count 4.10 x10^6/uL (3.50-5.40) Hemoglobin 11.0 g/dL (12.0-15.5) Hematocrit 33.4 % (36.0-47.0) Mean Corpuscular Volume 81 fL (79-100) Mean Corpuscular Hemoglobin 27 pg (25-35) Mean Corpuscular Hemoglobin Concent 33 g/dL (31-37) Red Cell Distribution Width 15.3 % (11.5-14.5) Platelet Count 317 x10^3/uL (140-400) Neutrophils (%) (Auto) 66 % (31-73) Lymphocytes (%) (Auto) 25 % (24-48) Monocytes (%) (Auto) 8 % (0-9) Eosinophils (%) (Auto) 1 % (0-3) Basophils (%) (Auto) 0 % (0-3) Neutrophils # (Auto) 6.8 x10^3uL (1.8-7.7) Lymphocytes # (Auto) 2.6 x10^3/uL (1.0-4.8) Monocytes # (Auto) 0.8 x10^3/uL (0.0-1.1) Eosinophils # (Auto) 0.1 x10^3/uL (0.0-0.7) Basophils # (Auto) 0.0 x10^3/uL (0.0-0.2) Sodium Level 135 mmol/L (136-145) Potassium Level 3.4 mmol/L (3.5-5.1) Chloride Level 96 mmol/L (98-107) Carbon Dioxide Level 27 mmol/L (21-32) Anion Gap 12 (6-14) Blood Urea Nitrogen 18 mg/dL (7-20) Creatinine 1.4 mg/dL (0.6-1.0) Estimated GFR (Cockcroft-Gault) 38.6 Glucose Level 302 mg/dL (70-99) Calcium Level 8.9 mg/dL (8.5-10.1) Objective Assessment Left index finger osteomyelitis Left index finger fracture Left index finger cellulitis DM Neuropathy Plan Plan of Care [facility] and alvino I and D /partial amputation pending supportive care BRITTANI BURGOS MD Dec 15, 2018 11:50
--- NOTE | 2018-12-15 12:15 | NUR ---
SW following for discharge planning. Discussed with RN, pt having surgery either today or tomorrow (12/16/18). SW will continue to follow.
[2018-12-15] MEDS ORDERED: BUPIVACAINE MPF 0.25% 30 ML VIAL. ONE (14:36)
[2018-12-15] MEDS ORDERED: BUPIVACAINE-EPI 0.25%-1:200000 MPF 30 ML VIAL. ONE (14:36)
[2018-12-15] MEDS ORDERED: SEVOFLURANE 61 TO 120 MINUTES. IH ONE (15:41)
[2018-12-15] MEDS ORDERED: PROPOFOL 20 ML IV ONE (15:41)
[2018-12-15] MEDS ORDERED: LIDOCAINE 2% PF 5 ML VIAL. ONE (15:41)
[2018-12-15] MEDS ORDERED: ePHEDrine PF IN SALINE 50 MG/10 ML SYRINGE. IV ONE (16:21)
[2018-12-15] MEDS ORDERED: BUPIVACAINE MPF 0.25% 30 ML VIAL. INJ ONE (16:35)
--- NOTE | 2018-12-15 16:51 | NUR ---
Wound Care Wound care consult for L index finger wound. Pt stated she burned it in September. Finger is reddened, swollen with a distal wound that is covered in dry slough. Wound cleansed and measured. 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 No other wounds noted on full skin inspection. WC will follow up after surgery for post op assessment if left with open wound.
[2018-12-15] MEDS ORDERED: MORPHINE SULFATE 2 MG/ML VIAL. IV PRN (17:15)
[2018-12-15] MEDS ORDERED: HYDROmorphone 2 MG/ML VIAL IV PRN (17:15)
[2018-12-15] MEDS ORDERED: PROCHLORPERAZINE 10 MG/2 ML VIAL. IV PRN (17:15)
[2018-12-15] MEDS ORDERED: LIDOCAINE 1% PF 2 ML VIAL. ID PRN (17:15)
[2018-12-15] MEDS ORDERED: ONDANSETRON PF 4 MG/2 ML VIAL. IV PRN (17:15)
[2018-12-15] MEDS ORDERED: fentaNYL PF VIAL 100 MCG/2 ML VIAL IV PRN ×2 (17:15)
[2018-12-15] MEDS ORDERED: IV RINGERS,LACTATED 1000ML 1,000 ML IV SCH (17:15)
--- NOTE | 2018-12-15 17:45 | NUR ---
PATIENT RETURNED TO THE UNIT FROM PROCEDURE (LEFT INDEX FINGER REMOVED TIP ABOVE JOINT), AREA HAS A CLEAN DRY DRESSING IN PLACE(XEROFORM, 4X4 AND GAUZE WRAP, REINFORCE NEEDED. POST OP VITALS STARTED 152/68,94% ON RA, 20,72, PATIENT ALERT AND VERBALLY RESPONSIVE, DENIES PAIN/DISCOMFORT AT THIS TIME, WILL MONITOR.
--- NOTE | 2018-12-15 18:32 | CONS ---
DATE OF CONSULTATION: 12/15/2018 REQUESTING PHYSICIAN: Dr. Xu Silver. REASON FOR CONSULTATION: Osteomyelitis of the finger. HISTORY OF PRESENT ILLNESS: This is a 58-year-old female with a history of diabetes with significant neuropathy, both hands, she does not feel anything and multiple times she has burned herself; one of those happen before October or early part of October and then eventually she lost the nail and kept getting worse. The patient was seen outpatient, was treated with antibiotics and admitted for further management. Her x-rays showing there is a fracture in the distal tuft as well as osteomyelitis. The patient has had some nausea, vomiting yesterday, but she feels better now. Denies any fever. Denies any chest pain, shortness of breath, abdominal pain, urinary symptoms or bowel symptoms. PAST MEDICAL HISTORY: Positive for diabetes mellitus. The patient has had coronary artery disease with coronary artery bypass grafting done last year, severe neuropathy, congestive heart failure, hypertension, hyperlipidemia, valvular insufficiency, COPD, history of hepatitis, depression, anxiety. SOCIAL HISTORY: She quit smoking last year. No alcohol use or drug use. ALLERGIES: LIST ALLERGIC TO PREGABALIN. CURRENT MEDICATIONS: Reviewed. The patient is on vancomycin and Zosyn. REVIEW OF SYSTEMS: As per HPI. All other systems reviewed are negative. PHYSICAL EXAMINATION: GENERAL: Alert, oriented female, not in any distress. VITAL SIGNS: Stable, afebrile. HEENT: NAD. NECK: Supple, no JVP, no lymphadenopathy. LUNGS: Clear. HEART: S1, S2 regular. ABDOMEN: Benign. EXTREMITIES: No edema or cyanosis. SKIN: Unremarkable except left index finger. The nail is lost the distal tip and there is some chronic looking deformity of the tip of the finger. The patient has erythema of the shaft of the finger. Couple of other burn chan, blisters on the palm of the left hand as well as there is a callus and burned area on the right hand. NEUROLOGIC: The patient is alert, awake, appropriate. No focal neurologic deficit. LABORATORY DATA: White count is normal. BUN and creatinine are normal 18 and 1.4. X-ray of the finger showing fracture as well as osteomyelitis of the distal phalanx. IMPRESSION: 1. Left index finger distal phalanx osteomyelitis. 2. Left index finger mid shaft cellulitis. 3. Left index finger distal phalanx fracture. 4. Severe neuropathy. 5. Diabetes. 6. Coronary artery disease. 7. Hypertension. Recommend continue vancomycin and Zosyn. I had a long discussion with her about options discussed. The patient is very distraught of having partial amputation. The patient was given option that we can treat with IV antibiotics to see how it goes, but more than likely she is going to need partial amputation. Another in-between option is just to do incision and drainage and treat with antibiotics and see if we can salvage the finger. She is going to think about it and discuss with Dr. Sterling before surgery. Thank you very much, Dr. Silver, for giving me the opportunity to participate in this patient's care. BRITTANI BURGOS MD DR: LAKSHMI/nts JOB#: [id number] / [id number]
--- NOTE | 2018-12-15 18:33 | PDOC4 ---
Operative Note Operative Note Date of surgery: 12/15/2018 Preoperative diagnosis: Osteomyelitis left index finger distal phalanx and severe swelling and infection soft tissue left index finger proximally Postoperative diagnosis: Same Operative procedure: Left index finger amputation distal phalanx with primary closure Surgeon: Asher Anesthesia: Gen. Estimated blood loss: 20 mL Complications: None Operative indications: Patient is a 58-year-old female who has sustained repeated webb to the tips of her fingers due to neuropathy in her hands. The index finger injury was sustained about 2 months ago and she developed increasing drainage redness lost her fingernail and now presents with a very swollen stiff red index finger. X-rays show osteomyelitis of the distal phalanx. I discussed treatment options with her along with extensive consultation with Dr. Zaragoza of infectious disease and went over with her that extensive long-term antibiotics would be needed to attempt to clear the infection in the bone. Based on the destruction of the bone and the fragmentation around the joint it is unlikely that would be very functional even if infection were cleared. I told her furthermore there is a significant risk of infection spreading proximally and causing loss of more tissue and dysfunction. I recommended an infectious disease is in agreement with recommendation of removal of the distal phalanx bone and closure. We had to separate discussions about this initially was concerned about the progression of possible surgery if it did not heal. Based on our best information it appears that her risk of nonhealing is worse and more extensive damage possible without removal of the infected bone and her loss of function would likely be minimal due to the already stiff destroyed joint and nonfunctional bone. All her questions were answered she wishes to proceed with the left index finger distal amputation having had all her questions answered. Operative text: Patient was identified procedure verified patient placed in the supine position on the operating table. After adequate amounts of general anesthesia were administered the left upper extremity was prepped and draped in standard sterile fashion with an upper arm tourniquet which was not inflated. After timeout was performed patient procedure identified and verified a fishmouth type incision was made to the base of the nailbed excising the a complete nailbed dorsally and preserving a larger skin flap volarly dissection was carried out around the distal phalanx and the osteomyelitic soft destroyed bone completely removed. Flexor profundus remained attached to scar tissue and did not retract extensor mechanism was likewise fixated to the distal periosteum bleeding points were controlled by electrocautery and the skin was closed with nylon suture and a simple fashion with excellent apposition of viable tissue obtained The remaining tissue was well vascularized. Sterile dressings were applied patient was returned recovery room in stable condition having tolerated procedure well PINA MENA MD Dec 15, 2018 18:33
[2018-12-15] MEDS: INSULIN GLARGINE 300 UNITS/3 ML INSULN.PEN. SQ SCH (21:00)
[2018-12-15] MEDS: LACTOBACILLUS RHAMNOSUS GG 1 CAPSULE. PO SCH (21:01)
[2018-12-15] MEDS: NORTRIPTYLINE 25 MG CAPSULE PO SCH (21:02)
[2018-12-15] MEDS ORDERED: VANCOMYCIN 1.25 GM in IV NORMAL SALINE 250ML 250 ML IV SCH (22:00)
--- NOTE | 2018-12-16 01:20 | CONS ---
DATE OF CONSULTATION: 12/15/2018 REQUESTING PHYSICIAN: Dr. Xu Silver. REASON FOR CONSULTATION: Left index finger infection. HISTORY OF PRESENT ILLNESS: The patient is a 58-year-old white female who is a diabetic, poorly controlled on insulin and has had neuropathy in her hands for a long period of time. She indicates that she has had previous multiple webb to her fingertips and injuries related to her neuropathy and indicated that she had burned her left index fingertip perhaps 6-8 weeks ago when she was cooking. She said she developed redness and drainage; her finger nail fell off and had been showing signs of some progressive infection. She was placed on antibiotics apparently at Dr. Silver's office, but continued to have worsening and now was admitted to the hospital for further evaluation with x-rays showing evidence of suspected osteomyelitis of her distal phalange. PAST MEDICAL HISTORY: Significant for poorly controlled diabetes with neuropathy in her hands. PAST SURGICAL HISTORY: Coronary bypass at [facility] in 2018. ALLERGIES: She has no known medicine allergies. SOCIAL HISTORY: Denies smoking, alcohol or drug use. She is single. Denies any significant exercise history. FAMILY HISTORY: Noncontributory. REVIEW OF SYSTEMS: Significant only for the history of multiple webb and recent index fingertip injury. She indicates continued swelling and stiffness of the finger, worse despite being on antibiotics. PHYSICAL EXAMINATION: EXTREMITIES: Examination of the left index finger, she has significant swelling just proximal to the PIP joint of the finger severely affecting the DIP joint, which really has no significant motion and is very painful on palpation or any type of manipulation. She has PIP joint motion full extension and flexion that is limited due to her swelling. MCP joint motion is normal. She really has no current signs of tenosynovitis, pain over her flexor or extensor tendon sheaths aside from generalized tenderness. She has significant skin peeling due to her swelling and drainage from the fingertip. Her finger nail has fallen off and has increased pain over the distal phalange area. Her flexor profundus superficialis and extensor tendon function is otherwise intact throughout the left hand. She has normal examination of the contralateral right hand and wrist with normal alignment, stability of bilateral wrists, elbows, shoulders and does have a glove distribution neuropathy in both hands with some evidence of previous callus on the other fingertips, but no active infection or swelling present. IMAGING: X-rays show osteomyelitis of the distal phalange and destruction of the distal portion of the distal interphalangeal joint as the bone is broken apart and in the distal phalangeal portion of the articulation. IMPRESSION: 1. Left index finger distal phalange osteomyelitis with fracture and destruction of her distal portion of the distal interphalangeal joint, cellulitis and severe swelling, pain and stiffness of the left index finger. 2. Chronic neuropathy of both hands. TREATMENT PLAN: I had discussed with her at 2 separate occasions, once before Dr. Zaragoza of the Infectious Disease doctor visited her and once afterward. Initially, she was somewhat concerned with possibility of surgical treatment due to a concern that if she had surgery, it might not heal and more and more of her finger would have to be cut off. While nonhealing is a potential concern, I told her I am very concerned about the severe infection in the bone in the distal phalange that it is literally falling apart due to the severity of infection. She really has a nonfunctional distal interphalangeal joint that does not move, it is very painful to push on. She lost her fingernails. She is having draining out of the finger and while this could potentially be attempted treatment with antibiotics, I am concerned that even if the infection is eradicated which is unlikely due to the severity and that she would still have very, very poor function of the finger and in a worse case scenario that she would experience potentially proximal migration of the infection along the tendon sheaths, which could cause her to lose more of her finger or hand due to the damage. Therefore, considering the most likely results of different treatment options, I think with her good pulses and blood supply overall has a good chance of healing a distal phalange amputation with shortening of her index finger and the major issue would likely be ongoing protection due to her neuropathy, which is resulting in her ongoing injuries. Certainly, there may be a possibility that the surgery may not heal. I think overall that is less of a concern based on the clinical picture than potentially having the infection progress and its possible effect on cord tissue destruction. She noted that the Infectious Disease doctor did talk with her about this as well and I discussed this in detail with them and I am certainly on the same page as long as she is willing to undergo removal of the infected bone surgically. I did tell her that while it is certainly her decision alone and if she decides to go ahead with surgical treatment sooner, it is probably better. She agrees with this and wants to proceed today with amputation of the distal phalange which will be accomplished as soon as the operating room is available. PINA MENA MD DR: BREANNA/lizzy JOB#: [id number] / [id number] Xu Humphrey MD
[2018-12-16 03:00] VITALS: BP 161/74
[2018-12-16] MEDS: PIPERACILLIN/TAZOBACTAM 3.375 GM in IV NORMAL SALINE 50ML 50 ML IV SCH ×2 (06:07→12:47)
[2018-12-16 07:00] VITALS: BP 136/84
[2018-12-16] MEDS ORDERED: MORPHINE SULFATE 2 MG/ML VIAL. IV PRN (07:00)
[2018-12-16] MEDS ORDERED: ONDANSETRON PF 4 MG/2 ML VIAL. IV PRN (07:00)
[2018-12-16] MEDS ORDERED: HYDROmorphone 2 MG/ML VIAL IV PRN (07:00)
[2018-12-16] MEDS ORDERED: LIDOCAINE 1% PF 2 ML VIAL. ID PRN (07:00)
[2018-12-16] MEDS ORDERED: PROCHLORPERAZINE 10 MG/2 ML VIAL. IV PRN (07:00)
[2018-12-16] MEDS ORDERED: IV RINGERS,LACTATED 1000ML 1,000 ML IV SCH (07:00)
[2018-12-16] MEDS ORDERED: fentaNYL PF VIAL 100 MCG/2 ML VIAL IV PRN ×2 (07:00)
--- NOTE | 2018-12-16 07:57 | PDOC ---
Provider Note Provider Note sleeping- vss, no temp- glucose fair- will inc lantus, cont vanc/zosyn pending cults after dip amputation- rest same EVERTON FRAZIER MD Dec 16, 2018 07:57
[2018-12-16] MEDS ORDERED: FUROSEMIDE 40 MG TABLET. PO SCH (08:00)
[2018-12-16] MEDS: ASPIRIN CHEWABLE 81 MG TABLET. PO SCH (08:55)
[2018-12-16] MEDS: POTASSIUM CHLORIDE 10 MEQ TABLET.ER. PO SCH ×3 (08:55→18:14)
[2018-12-16] MEDS: MULTIVITAMIN with MINERAL TABLET. PO SCH (08:55)
[2018-12-16] MEDS: LACTOBACILLUS RHAMNOSUS GG 1 CAPSULE. PO SCH (08:55)
[2018-12-16] MEDS: GABAPENTIN 300 MG CAPSULE. PO SCH (08:56)
[2018-12-16] MEDS: amLODIPine BESYLATE 5 MG TABLET PO SCH (08:56)
[2018-12-16] MEDS: METOPROLOL TART IMMED RELEASE 50 MG TABLET. PO SCH (08:56)
[2018-12-16] MEDS: metFORMIN 500 MG TABLET PO SCH ×2 (08:56→18:13)
[2018-12-16] MEDS: INSULIN LISPRO 300 UNITS/3 ML INSULN.PEN. SQ SCH ×2 (09:05→12:53)
--- NOTE | 2018-12-16 09:38 | NUR ---
IP: Pt has a hx of mrsa in urine on 06/21/18. Pt also admitted with sever wound to finger and hand with cultures pending. Pt to be in contact precautions until there are 2 negative urine cultures and hand infection culture is verified.
--- NOTE | 2018-12-16 10:45 | PDOC ---
Infectious Disease Note Subjective Subjective pt is feeling good, wants to go home ROS ROS no n/v/d/sob Vital Sign Vital Signs Vital Signs Date Time Temp Pulse Resp B/P (MAP) Pulse Ox O2 Delivery O2 Flow Rate FiO2 12/16/18 08:56 70 136/84 12/16/18 07:00 98.7 15 99 Room Air 98.7 12/15/18 17:29 2 Physical Exam PHYSICAL EXAM GENERAL: Alert, oriented female, not in any distress. VITAL SIGNS: Stable, afebrile. HEENT: NAD. NECK: Supple, no JVP, no lymphadenopathy. LUNGS: Clear. HEART: S1, S2 regular. ABDOMEN: Benign. EXTREMITIES: No edema or cyanosis. SKIN: Unremarkable except left index finger. The nail is lost the distal tip and there is some chronic looking deformity of the tip of the finger. The patient has erythema of the shaft of the finger. Couple of other burn chan, blisters on the palm of the left hand as well as there is a callus and burned area on the right hand. NEUROLOGIC: The patient is alert, awake, appropriate. No focal neurologic deficit. Labs Lab Laboratory Tests Test 12/15/18 11:16 12/15/18 15:39 12/15/18 17:32 12/15/18 20:58 Glucose (Fingerstick) 241 mg/dL (70-99) 132 mg/dL (70-99) 120 mg/dL (70-99) 211 mg/dL (70-99) Micro ANAEROBIC-AEROBIC CULTURE PENDING ANAEROBIC RES 1 PENDING AEROBIC CULT PENDING AEROBIC RES 1 PENDING GRAM STAIN Final Final report GRAM STAIN RES 1 Final Comment No white blood cells seen. GRAM STAIN RES 2 Final No organisms seen Performed at: - [facility], [place], [place] [id number] Cast Associate: SUZETTE Dailey MD, Phone: [phone] Objective Assessment Left index finger osteomyelitis s/p amputation Left index finger fracture Left index finger cellulitis DM Neuropathy Plan Plan of Care vanc and zosyn,,, change to po augmentin for d/c pt to call my office for culture results and f/u to make sure appropriate antibiotics given BRITTANI BURGOS MD Dec 16, 2018 10:45
[2018-12-16 11:00] VITALS: BP 158/88
--- NOTE | 2018-12-16 13:22 | NUR ---
SW following. Discussed with RN, pt had finger amputation. Possibility of IV abx. SW will continue to follow.
[2018-12-16] MEDS: VANCOMYCIN PER PHARMACY MC PRN (14:42)
[2018-12-16 15:00] VITALS: BP 154/88
[2018-12-16] MEDS ORDERED: AMOX1TAB61 PO (17:46)
[2018-12-16] MEDS ORDERED: AMOX1TAB11 PO (17:49)
--- NOTE | 2018-12-16 18:15 | NUR ---
DISCHARGE INSTRUCTIONS GIVEN, QUESTIONS AND CONCERNS ANSWERED, PATIENT VERBALIZED UNDERSTANDING OF DISCHARGE INFORMATION INCLUDING TAKING ALL MEDICATION INSTRUCTED AND FOLLOWING UP WITH ALL CONSULTS INSTRUCTED IN DISCHARGE PAPERWORK. SALINE LOCK REMOVED PRIOR TO DISCHARGE. ALL PERSONAL BELONGINGS GATHERED BY THE PATIENT AND PLACED IN BAGS FOR DISCHARGE. PRESCRIPTION FOR AMOXICILLIN CALLED TO PATIENTS' PHARMACY ORDERED PER DR. Israel BURGOS, PATIENT ENCOURAGED TO FOLLOWUP WITH DR. BURGOS TO ASSESS IF ANTIBIOTIC THERAPY IS EFFECTIVE, PATIENT AGREED.
--- NOTE | 2018-12-16 18:31 | NUR ---
PATIENT LEAVES THE UNIT PER W/C ACCOMPANIED BY HER DAUGHTER AND GRANDDAUGHTER, EMOTIONAL SUPPORT GIVEN, FOLLOW UP APPTS. ENCOURAGED.
--- NOTE | 2018-12-16 18:42 | DS ---
DATE OF DISCHARGE: 12/16/2018 HOSPITAL SUMMARY: The patient was admitted with progressive cellulitis of the index finger failing outpatient antibiotic management. She had had a burn 2 months prior. Because of her neuropathy, she was not feeling much pain. X-ray showed suspected osteomyelitis of the DIP bone in that finger. She was given IV vancomycin and Zosyn and cultures done, which are pending at this time. Dr. Sterling recommended amputation to try to save the finger and cure the osteomyelitis, which was done of the distal phalanx on the day prior to dismissal with good outcome. She is wishing to be discharged and followed as an outpatient at this point to reduce cost and to assist in some social issues and myself and consultants were comfortable to work this out. Labs were all unremarkable and blood cultures had no growth. FINAL DIAGNOSES: Cellulitis and osteomyelitis of the left index finger. OPERATIONS AND PROCEDURES: Amputation of the distal phalanx of the left index finger. COMPLICATIONS: None. CONSULTATIONS: Dr. Sterling, Dr. Ernst Zaragoza. DISPOSITION: She will take Levaquin 500 mg daily and see Dr. Silver in 1 week, Dr. Sterling in 10-14 days for suture removal and will follow accordingly. Proper insulin doses were discussed and she will continue all home meds and she understands that poor diabetic control will lead to poor wound healing and ultimately, a potentially poor outcome. Tetanus status is up to date. EVERTON SILVER MD DR: NICHOLAS/lizzy JOB#: [id number] / [id number]
[2018-12-16] MEDS ORDERED: ATORVASTATIN CALCIUM 40 MG TABLET. PO SCH (21:00)
[2018-12-16] MEDS ORDERED: INSULIN GLARGINE 300 UNITS/3 ML INSULN.PEN. SQ SCH (21:00)
[2018-12-16] MEDS ORDERED: AMOXICILLIN/K CLAV 875/125MG TABLET. PO SCH (21:00)
[2018-12-16] MEDS ORDERED: carBAMazepine 200 MG TABLET PO SCH (21:00)
--- NOTE | 2018-12-18 15:06 | PATHOLOGY ---
[facility] Accession Number: [id number] . 01 Material submitted: . LEFT INDEX FINGER DISTAL PHALANX . 01 Clinical history: . None provided . 02 Diagnosis: Left index finger, distal phalanx amputation: - Focal ulceration of distal tip of finger with acute cellulitis and acute osteomyelitis. - Pseudoepitheliomatous hyperplasia with marked hyperkeratosis and parakeratosis of skin. (JPM:magalis; 12/18/2018) QMS/12/18/2018 . 02 Electronically signed: . Henry Shearer MD, Pathologist NPI- [id number] . 01 Gross description: . The specimen is received in formalin, labeled "Mercedes Ware, left index finger distal phalanx" and consists of a distal finger segment measuring 2.2 x 2.2 x 1.0 cm. The nail is present which is firm, crusted, and yellow-brown. The skin is white-zavala with no distinct lesion. The entire margin is inked black. Sectioning reveals a small amount of underlying bone which is zavala-brown. The specimen is entirely submitted in A1-A3 with A2 following decalcification. (SDY; 12/16/2018) SYU/SYU . 02 Pathologist provided ICD-10: L98.499, L03.012, L85.8 . 02 CPT . 186491, 045652 Specimen Comment: A courtesy copy of this report has been sent to Specimen Comment: [phone], . Specimen Comment: Report sent to / DR FRAZIER Specimen Comment: A duplicate report has been generated due to demographic updates. Performed at: [address], [place], [place] [id number] MD Cj Gonzales MD Phone: [phone] Performed at: [address] [id number] MD Henry Shearer MD Phone: [phone]
== END 2018-12-16 18:31 | disposition home or self-care (01) | DRG 256 ==
LOC: 5 SOUTH 18:38
PROVIDERS: ADMIT Family Medicine; ATTEND Family Medicine
PROC: 0X6P0Z3 Detachment at Left Index Finger, Low, Open Approach (ICD-10-PCS; principal; 2018-12-15 15:30)
DX: E11.51 Type 2 diabetes mellitus with diabetic peripheral angiopathy without gangrene (principal); M86.8X4 Other osteomyelitis, hand; L03.012 Cellulitis of left finger; E11.69 Type 2 diabetes mellitus with other specified complication; S62.631A Displaced fracture of distal phalanx of left index finger, initial encounter for closed fracture; E11.65 Type 2 diabetes mellitus with hyperglycemia; E11.40 Type 2 diabetes mellitus with diabetic neuropathy, unspecified; I25.10 Atherosclerotic heart disease of native coronary artery without angina pectoris; I50.9 Heart failure, unspecified; I11.0 Hypertensive heart disease with heart failure; E78.5 Hyperlipidemia, unspecified; J44.9 Chronic obstructive pulmonary disease, unspecified; F32.9 Major depressive disorder, single episode, unspecified; F41.9 Anxiety disorder, unspecified; W18.39XA Other fall on same level, initial encounter; Y93.89 Activity, other specified; Y92.89 Other specified places as the place of occurrence of the external cause; Y99.8 Other external cause status; Z95.1 Presence of aortocoronary bypass graft; Z79.2 Long term (current) use of antibiotics; Z87.891 Personal history of nicotine dependence
CPT/HCPCS: 36415; 73140; 80048; 82962; 85025; 87071; 87075; 87186; 88305; 88311; 94760; J0171; J1815; J2001; J2405; J2543; J2704; J3370; J3490; J7040; J7050; J7120; J7030

== ENCOUNTER → 2019-04-07 | Outpatient (CLI) | payer OTHER ==
[~2019-04-07] MED LIST changes: +ACET500T68 PO; +AMLO5TAB10 PO; +AMOX1TAB11 PO; +ASPI81TA50 PO; +ATOR40TA59 PO; -BISACODYL 5 MG TABLET.DR. PO PRN; +DULA0.75 SQ; +LIDOCAINE 2%/EPI 1:100,000 20 ML VIAL. IJ ONE; +LIDOCAINE WITH 8.4% SOD BICARB 3 ML DISP.SYRIN. INJ ONE; +METF500T16 PO
--- NOTE | 2019-04-08 15:49 | RAD ---
Examination: Stereotactic breast biopsy-left History: Abnormal mammogram with cluster of calcifications Comparison/Correlation: None Findings: Risks and benefits of stereotactic left breast biopsy were discussed with the patient and informed consent was obtained. The patient's left breast was placed in the CC projection. Superior approach was utilized. Pulmonary imaging was performed to localize the calcification cluster. Subsequently, stereo pair images. Cleansing with Betadine at the superior aspect of the left breast was performed. 5 cc 1% lidocaine was administered. Scalpel incision was made. A 9 gauge needle was introduced into the left breast. Prefire images were obtained. The needle was then fired. Postfire images demonstrate the needle to be in place. A total of 12 samples were then acquired. Mammographic image of the samples did not demonstrate the calcifications of interest. This is suspected to be due to change in position of the breast due to patient movement. Repeat imaging to determine calcification location again was performed. Small scalpel incision was again made and the needle was again placed. Imaging confirmed location of the needle in relation to the calcification on prefire and postfire images. 12 samples were obtained. Stereotactic images demonstrate absence of some the calcifications. Specimen radiograph demonstrated some of the calcifications within it. Clip marker was then placed. The patient tolerated procedure well without immediate complications. Left MLO and left CC images were then acquired demonstrating the clip marker be in place. Surrounding high density body which may represent small hematoma or fluid related to the lavage. Procedure is noted. Biopsy clip marker is at the site of the calcifications reported on the original screening mammographic exam of 03/19/2019. Few punctate calcifications are still evident at this site on these post procedure images. Impression: Successful successful stereotactic biopsy of the left central breast calcifications.
--- NOTE | 2019-04-08 20:06 | PATHOLOGY ---
[facility] Accession Number: [id number] . 01 Material submitted: . PART A: breast - LEFT BREAST CALCIFICATIONS, CENTRAL BREAST, 7CMFN #1. Modifiers: left, central, 1 PART B: breast - LEFT BREAST CALCIFICATIONS, CENTRAL BREAST, 7CMFN #2. Modifiers: left, central, 2 . 01 Clinical history: . Left breast calcifications . 02 Diagnosis: A. "Left breast #1", core needle biopsy: - Scant unremarkable ductal epithelium. - Portion of simple cyst. - Microcalcifications present focally. . B. "Left breast tissue #2", core needle biopsy: - Fibroadenomatoid change with associated coarse calcification. - Microscopic intraductal papilloma. . (Please see comment) LBQ/04/08/2019 . 02 Comment: No evidence of atypia or malignancy is seen in either specimen. . This case has also been reviewed by Dr. Leroy Bird M.D. who agrees with the diagnosis. (SKM/db; 04/08/2019) . 02 Electronically signed: . Delroy Rodriguez MD, Pathologist NPI- [id number] . 01 Gross description: . A. Received in formalin labeled "Mercedes Ware, left breast 1," is an orange plastic cassette containing multiple needle cores of yellow-freed fibrofatty tissue measuring 2.4 x 1.6 x 0.5 cm in aggregate dimensions. The tissue is submitted in its entirety in cassette A1 through A3. The cold ischemic time is 15 minutes. The total formalin fixation time is 7 hours and 40 minutes. . B. Received in formalin labeled "Mercedes Ware, left breast tissue 2," are multiple needle cores of yellow-freed fibrofatty tissue measuring 0.5 x 0.5 x 0.3 cm in aggregate dimensions. The tissue is submitted in its entirety in cassette B1. Additionally received in the same container is an orange plastic cassette containing multiple needle cores of yellow-freed fibrofatty tissue measuring 2.4 x 0.8 x 0.5 cm in aggregate dimensions. The tissue is submitted in its entirety in cassette B2 and B3. The cold ischemic time is 15 minutes. The total formalin fixation time is 7 hours and 35 minutes. (TSD; 04/07/2019) TOB/TOB . 02 Pathologist provided ICD-10: N60.02, D24.2 . 02 CPT . 496463, 570228 Specimen Comment: A courtesy copy of this report has been sent to Specimen Comment: [phone]. Specimen Comment: Report sent to Performed at: 01 [facility] [address] [facility] [address] [place], [place] [id number] MD Cj Gonzales MD Phone: [phone] Performed at: 02 [facility] [address] [place], [place] [id number] MD Henry Shearer MD Phone: [phone]
== END | disposition home or self-care (01) ==
LOC: MAMMO 12:46
PROVIDERS: ATTEND Family Medicine
DX: D24.2 Benign neoplasm of left breast (principal); N60.02 Solitary cyst of left breast
CPT/HCPCS: 19081; 77022; 77065; 88305; C1713; J3490; 19085

== ENCOUNTER → 2020-11-01 | Outpatient (CLI) | payer MEDICARE, OTHER ==
[~2020-11-01] MED LIST changes: +AMLO-186 PO; +AMLO-187 PO; -AMLO10TA8 PO; -AMLO5TAB10 PO; -LIDOCAINE 2%/EPI 1:100,000 20 ML VIAL. IJ ONE; -LIDOCAINE WITH 8.4% SOD BICARB 3 ML DISP.SYRIN. INJ ONE; -LISI-338 PO; +LISI-517 PO; +LISI1TAB20 PO; -LISI1TAB7 PO; +MAGN296S68 PO; -MAGN296S9 PO; +POTA20TA4 PO; -POTA20TA82 PO; -PREG25CA PO; +PREG25CA41 PO; +SIMV10TA15 PO; -SIMV10TA3 PO
--- NOTE | 2020-11-06 10:57 | RAD ---
DATE: 11/01/2020 12:14 PM EXAM: MAMMO AUDREY SCREENING BILATERAL HISTORY: Screening COMPARISON: Left postprocedure mammogram of 04/07/2019, bilateral mammogram of 03/19/2019 Bilateral CC and MLO views of the breasts were performed. Bilateral breast tomosynthesis was performed in CC and MLO projections. This study was interpreted with the benefit of Computerized Aided Detection (CAD). FINDINGS: Breast Density: FATTY The Breast Parenchyma is primarily fatty replaced. Breast parenchyma level density A. Stable benign biopsy marker in the slightly superior central left breast. No suspicious masses, microcalcifications or architectural distortion is present to suggest malignancy in either breast. The visualized axillae are unremarkable. IMPRESSION: No mammographic evidence of malignancy. BI-RADS CATEGORY: 2 BENIGN FINDING(S) RECOMMENDED FOLLOW-UP: 12M 12 MONTH FOLLOW-UP Annual screening mammography is recommended, unless clinically indicated sooner based on symptoms or change in physical exam. PQRS compliance statement: Patient information was entered into a reminder system with a target due date for the next mammogram. Mammography is a sensitive method for finding small breast cancers, but it does not detect them all and is not a substitute for careful clinical examination. A negative mammogram does not negate a clinically suspicious finding and should not result in delay in biopsying a clinically suspicious abnormality. "Our facility is accredited by the [employer] Mammography [employer]."
== END ==
LOC: MAMMO 12:10
PROVIDERS: ATTEND Family Medicine
DX: Z12.31 Encounter for screening mammogram for malignant neoplasm of breast (principal)
CPT/HCPCS: 77063; 77067

== ENCOUNTER → 2021-03-28 | Outpatient (CLI) | payer MEDICARE, MEDICAID ==
--- NOTE | 2021-03-28 13:39 | RAD ---
EXAM: Chest CT low dose lung cancer screening without intravenous contrast. HISTORY: Cigarette smoking. TECHNIQUE: Computed tomographic images of the chest were obtained without contrast. Multiplanar refor matting was performed. *One or more of the following individualized dose reduction techniques were utilized for this examina tion: 1. Automated exposure control. 2. Adjustment of the mA and/or kV according to patient size. 3. Use of iterative reconstruction technique. COMPARISON: 06/20/2018. FINDINGS: The heart is normal in size. There is evidence of prior median sternotomy and coronary joni ry bypass grafting and mitral valve surgery. There are bilateral thyroid nodules. The aorta is normal in caliber. No pathologically enlarged lymph node is seen. There is no pneumothorax or pleural effus ion. There is minimal emphysema. There is a 3 mm nodule along the superior right major fissure, likel y a benign fissural lymph node. There is slight central bronchial wall thickening likely due to seque la of bronchitis. There is anterior medial right middle lobe atelectasis or pleural-parenchymal scarring. There is an i rregular groundglass nodule measuring 8 mm within the medial right lower lobe (series 2, image 207). There is medial right lower lobe and basilar atelectasis. There is a 3 mm nodule within the lateral l eft lower lobe (series 2, image 162). No hepatic lesion is seen on the [id number]. The spleen appears to be upper normal in size. The ad renal glands and visualized portions of the kidneys and pancreas are unremarkable. There is no suspic ious osseous lesion. There is a moderate to severe chronic wedge compression fracture of T11. IMPRESSION: 1. Irregular groundglass nodule within the medial right lower lobe measuring 8 mm. This may be infect ious or inflammatory. Follow-up can be performed in 3 months to confirm stability. There are addition al tiny parenchymal nodules measuring up to 3 mm. Lung RADS category 3: 6 month follow-up is recommen ded. 2. Minimal emphysema and central bronchial wall thickening likely due to the sequela of bronchitis. T here is also anterior medial right middle lobe pleural parenchymal scarring or atelectasis. No consol idated pneumonia is seen. 3. Bilateral thyroid nodules. These can be better assessed with a thyroid sonogram. Electronically signed by: Amanda Cerrato MD (03/28/2021 1:37 PM) [id number]
== END ==
LOC: RAD 12:50
PROVIDERS: ATTEND Family Medicine
DX: Z12.2 Encounter for screening for malignant neoplasm of respiratory organs (principal); J43.9 Emphysema, unspecified; R91.8 Other nonspecific abnormal finding of lung field; F17.210 Nicotine dependence, cigarettes, uncomplicated; E04.2 Nontoxic multinodular goiter; S22.089A Unspecified fracture of T11-T12 vertebra, initial encounter for closed fracture; X58.XXXA Exposure to other specified factors, initial encounter; Y93.89 Activity, other specified; Y92.89 Other specified places as the place of occurrence of the external cause; Y99.8 Other external cause status
CPT/HCPCS: 71271

== ENCOUNTER → 2021-11-26 | Outpatient (CLI) | payer MEDICARE, MEDICAID ==
[~2021-11-26] MED LIST changes: -LISI-517 PO; -LISI1TAB20 PO; +LISI1TAB39 PO; +LISI5TAB15 PO
--- NOTE | 2021-11-26 14:51 | RAD ---
INDICATION: 61 years of age asymptomatic female patient presents for screening mammography. No person al history of breast cancer. Family history breast cancer in mother age 65. History of benign right b reast biopsy. TECHNIQUE: Full field craniocaudal and mediolateral oblique images of both breasts were obtained usi ng digital technique with tomosynthesis and also analyzed with computer-aided detection software. COMPARISON: Prior mammographic imaging dating back to 03/19/2019. BREAST COMPOSITION: Category B: There are scattered fibroglandular densities. FINDINGS: No suspicious masses, microcalcifications or architectural distortion is present to suggest malignanc y in either breast. Biopsy clip at the 12:00 position, middle depth in the left breast. Stable benign -appearing calcifications in the right breast. The visualized axillae are unremarkable. IMPRESSION: No mammographic evidence of malignancy. RECOMMENDATION: Annual screening mammography is recommended, unless clinically indicated sooner based on symptoms or change in physical exam. BIRADS 2: BENIGN This study was interpreted with the benefit of Computerized Aided Detection (CAD). Patient information is entered into the reminder system with a target due date for the next screening mammogram. Mammography is the most sensitive method for finding small breast cancers, but it does not detect the m all and is not a substitute for careful clinical examination. A negative mammogram does not negate a clinically suspicious finding and should not result in delay in biopsying a clinically suspicious a bnormality. "Our facility is accredited by the [employer] Mammography [employer]." Electronically signed by: Sohail Ely DO (11/26/2021 2:48 PM) [id number]
== END ==
LOC: MAMMO 12:24
PROVIDERS: ATTEND Family Medicine
DX: Z12.31 Encounter for screening mammogram for malignant neoplasm of breast (principal)
CPT/HCPCS: 77063; 77067